=== PATIENT | male | born 1950 | race Caucasian/White ===

== ENCOUNTER 2021-08-22 07:02 | Outpatient (REF) | payer MEDICARE, SELFPAY ==
--- NOTE | ~2021-08-22 | CT_ITS ---
EXAMINATION: CT CHEST SCREENING CLINICAL INFORMATION: Lung cancer screening Current smoker. 52 pack year history. COMPARISON: Previous CT scans most recent March 2020 TECHNIQUE: Multidetector volumetric CT imaging of the chest is performed without contrast using low dose technique. Additional 2D coronal and sagittal reformatted images and axial 3D maximum intensity projection (MIP) images are generated on the CT workstation. This CT examination was performed using dose optimization techniques as appropriate, variously including the following: *Automated exposure control *Adjustment of mA and/or kV according to patient size (this includes techniques or standardized protocols for targeted exams where dose is matched to indication/reason for exam; i.e. extremities or head) *Use of iterative reconstruction technique DLP: 57 mGy-cm FINDINGS: LUNGS: There are small predominantly calcified pulmonary nodules or micronodules that are stable. Largest pulmonary nodule measures 8 mm in the peripheral pleural right lower lobe, axial image 162 series 5. The previously identified 3 x 6 mm peripheral or subpleural left lower lobe nodule that was new on March 2020 exam is no longer seen. Again this probably represented a subpleural lymph node. No new pulmonary nodule is seen. MEDIASTINUM: There is coronary artery calcification. The mediastinum is otherwise normal. PLEURA: There is no pleural effusion. No pleural mass or thickening. AXILLA: No lymphadenopathy. UPPER ABDOMEN: Unremarkable OSSEOUS STRUCTURES: There are degenerative changes of the spine. CT/CT lung screening IMPRESSION: The previously identified 3 x 6 mm peripheral or subpleural left lower lobe nodule that was new on March 2020 exam is no longer seen. Otherwise small predominantly calcified nodules or micronodules are stable. ASSESSMENT: Lung-RADS category 2: Benign RECOMMENDATION: Annual low-dose chest CT follow-up recommended.
== END 2021-08-22 07:03 | disposition home or self-care (01) ==
LOC: HO.CT 07:02
PROVIDERS: Visit Provider Physician Assistant Medical
DX: Z12.2 Encounter for screening for malignant neoplasm of respiratory organs (principal); F17.210 Nicotine dependence, cigarettes, uncomplicated
CPT/HCPCS: 71271

== ENCOUNTER 2023-05-31 08:20 | Outpatient (REF) | payer MEDICARE, SELFPAY ==
--- NOTE | ~2023-05-31 | CT_ITS ---
EXAMINATION: CT CHEST SCREENING CLINICAL INFORMATION: Current smoker. 52 pack year history. COMPARISON: Reassess exam most recent July 2021 TECHNIQUE: Multidetector volumetric CT imaging of the chest is performed without contrast using low dose technique. Additional 2D coronal and sagittal reformatted images and axial 3D maximum intensity projection (MIP) images are generated on the CT workstation. This CT examination was performed using dose optimization techniques as appropriate, variously including the following: *Automated exposure control *Adjustment of mA and/or kV according to patient size (this includes techniques or standardized protocols for targeted exams where dose is matched to indication/reason for exam; i.e. extremities or head) *Use of iterative reconstruction technique DLP: 46 mGy-cm FINDINGS: LUNGS: The previously identified peripheral or subpleural noncalcified 8 mm left lower lobe nodule is no longer seen. The small predominantly calcified pulmonary nodules are otherwise stable. Largest pulmonary nodule is a 4 mm peripheral or subpleural calcified right lower lobe axial image 185 series 5. No new pulmonary nodule. MEDIASTINUM: Normal heart size. Trace pericardial effusion. Mild aortic valve calcification. Small mediastinal lymph nodes. Normal caliber thoracic aorta. CORONARY ARTERY CALCIFICATION: Moderate PLEURA: There is no pleural effusion. No pleural mass or thickening. AXILLA: No lymphadenopathy. UPPER ABDOMEN: Unremarkable OSSEOUS STRUCTURES: Degenerative changes of the spine. CT/CT lung screening IMPRESSION: Small predominantly calcified pulmonary nodules. No suspicious pulmonary nodule. ASSESSMENT: Lung-RADS category 2: Benign RECOMMENDATION: Annual low-dose chest CT follow-up recommended
== END 2023-05-31 08:21 | disposition home or self-care (01) ==
LOC: HO.CT 08:20
PROVIDERS: PCP Internal Medicine; Visit Provider Physician Assistant Medical
DX: Z12.2 Encounter for screening for malignant neoplasm of respiratory organs (principal); F17.210 Nicotine dependence, cigarettes, uncomplicated
CPT/HCPCS: 71271

== ENCOUNTER 2024-04-24 13:28 | Outpatient (AMB) | payer MEDICARE, SELFPAY ==
--- NOTE | 2024-04-24 13:31 | HO.SPINEOV ---
Intake Visit Reasons: Lumbar radiculopaty Intake Note: Mr. Mcclelland is here today c/o Low back pain. 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 HPI: This 73-year-old male comes in complaining of severe back pain and progressive pain radiating down his legs. Pain is located in the lumbar region and is severe laying down, sitting or bending over. The leg pain appears when he is walking or standing. 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 Leaning over a shopping cart relieves the symptoms. When he coughs he gets electric shocks down his legs. On further questioning, he also complains of pain radiating from his neck down to his left arm and hand. He also has urge incontinence and restless legs at night, suspicious for cervical myelopathy. The following conservative treatment options were tried without success antiinflammatories, tylenol, physician guided home exercise plan, cortisone shots Physical Exam: Awake, alert. There is hyperreflexia starting at the triceps reflex. Has a Rene reflex on the left side. He walks with a mild spastic gait. Motor exam and sensory exam are intact. Radiological Studies: MRI of the lumbar spine done at [facility] on July 2023 shows multilevel degenerative disc disease, degenerative scoliosis at L3-4 L4-5 and severe spinal stenosis at L3-4 and L4-5. An MRI of the cervical spine is not available. Impression/Plan: This patient is suffering from progressive back pain and neurogenic claudication symptoms. His symptoms have severely progressed since July according to the patient. He never had this electric shocks down his legs. Therefore, I would like to repeat the MRI of the lumbar spine. Moreover. He suffering from cervical myelopathy by history and on clinical exam and therefore we will also order an MRI of the cervical spine. I will see the patient back as soon as the tests are done. Thank you for allowing me to participate in your patients care. total time spent was 50 minutes in counseling ,coordination of plan, personal review of imaging, surgical decision making and subsequent plan Saw Paz MD, PhD Spine Fellowship Trained Neurosurgeon Director, [facility] Orders: Orders MR cervical spine wo con Today G95.9 - Disease of spinal cord, unspecified, M54.12 - Radiculopathy, cervical region MR lumbar spine wo con Today M48.062 - Spinal stenosis, lumbar region with neurogenic claudication Coding Level of Care Code New Pt Level 4 (65843) Diagnoses Lumbar stenosis with neurogenic claudication M48.062 Cervical myelopathy with cervical radiculopathy G95.9; M54.12
== END 2024-04-24 15:30 | disposition home or self-care (01) ==
PROVIDERS: PCP Internal Medicine; Visit Provider Neurological Surgery
DX: M48.062 Spinal stenosis, lumbar region with neurogenic claudication (principal); G95.9 Disease of spinal cord, unspecified; M54.12 Radiculopathy, cervical region
CPT/HCPCS: 99204

== ENCOUNTER → 2024-04-24 13:28 | Outpatient (BNVA) | payer MEDICARE, SELFPAY | PROVIDERS: PCP Internal Medicine; Visit Provider Neurological Surgery | DX: M48.062 Spinal stenosis, lumbar region with neurogenic claudication (principal); M54.12 Radiculopathy, cervical region; G95.9 Disease of spinal cord, unspecified | CPT/HCPCS: 99202 ==

== ENCOUNTER 2024-05-03 19:30 | Outpatient (REF) | payer MEDICARE, SELFPAY ==
--- NOTE | ~2024-05-03 | MR_ITS ---
EXAMINATION: MR CERVICAL SPINE WITHOUT CONTRAST MR LUMBAR SPINE WITHOUT CONTRAST CLINICAL INFORMATION: Cervical radiculopathy. Neck pain. Neurogenic claudication. Question spinal stenosis. COMPARISON: No relevant prior imaging. TECHNIQUE: Multiplanar MR imaging of the cervical spine and lumbar spine was performed without contrast. FINDINGS: Cervical spine: There is 0.3 cm anterolisthesis of C3 on C4 and C4 on C5. Slight retrolisthesis of C5 on C6. Slight anterolisthesis of C6 on C7 and C7-T1. There is chronic loss of vertebral body height at C5 and C6. Vertebral body heights are otherwise maintained. There are type I degenerative endplate changes at C6-C7. Mixed degenerative endplate changes at C4-C5 and C5-C6. There is loss of intervertebral disc height and T2 signal intensity at multiple levels related to disc degeneration. There is no overt cord compression. No abnormal intramedullary signal changes. The cervicomedullary junction is normal. Limited visualization of the posterior fossa reveals a few cerebellar encephaloceles herniating into giant arachnoid granulations within the diploic space of the occipital bone. The occipital condyles and lateral C1 masses are intact. There are severe degenerative arthrosis of the atlantodental joint. C1-C2 articular facets are grossly unremarkable. At C2-C3 there is a slightly bulging disc. No canal stenosis. Bilateral facet degenerative change. No neuroforaminal encroachment. At C3-C4 there is a pseudodisc bulge and buckling of the ligamenta flava causing mild canal stenosis. Uncovertebral joint spurring and facet degenerative change causes severe bilateral neuroforaminal encroachment. At C4-C5 there is a bulging disc. No canal stenosis. Uncovertebral joint spurring and facet degenerative change causes moderate bilateral neuroforaminal encroachment. At C5-C6 there is a bulging disc. No canal stenosis. Asymmetric uncovertebral joint spurring and facet degenerative change causes moderate left neuroforaminal encroachment. At C6-C7 there is a bulging disc. No canal stenosis. Uncovertebral joint spurring and facet degenerative change causes moderate left and mild right neuroforaminal encroachment. At C7-T1 there is a bulging disc. Bilateral facet degenerative change. No canal stenosis. No neuroforaminal encroachment. Visualized soft tissues of the neck are normal. Vascular flow voids are maintained. Lumbar spine: There is grade 1 anterolisthesis of L4 on L5. Alignment is otherwise normal. Vertebral body heights are preserved. There are type I degenerative endplate changes at L4-L5 L5-S1. Mixed predominately type II and type III degenerative endplate changes at L1-L2, L2-L3, and L3-L4. There is loss of intervertebral disc height and T2 signal intensity at multiple levels related to disc degeneration. The tip of the conus medullaris is located at L1. No mass effect on the conus. Visualized distal cord signal intensity is normal. At L1-L2 there is a slightly bulging disc. Bilateral facet degenerative change. No canal stenosis. No mass effect on the traversing or foraminal nerve roots. At L2-L3 there is a bulging disc. Bilateral facet degenerative change. Mild canal stenosis. No mass effect on the traversing or foraminal nerve roots. At L3-L4 there is a diffusely bulging disc. Advanced facet degenerative change. Moderate canal stenosis. Subarticular zone narrowing causes abutment of both traversing L4 nerve roots. There is also moderate compression of the left L3 foraminal nerve root. At L4-L5 there is a pseudodisc bulge. Advanced bilateral facet degenerative change. Severe canal stenosis. Severe compression of the left L4 foraminal nerve root and moderate compression of the right L4 foraminal nerve root. At L5-S1 there is a shallow central protrusion superimposed upon a diffusely bulging disc. Advanced bilateral facet degenerative change. Mild canal stenosis. Subarticular zone narrowing causes abutment of both traversing S1 nerve roots. Moderate to severe compression of both L5 foraminal nerve roots. Limited visualization of the retroperitoneal anatomy reveals no abnormal finding. Psoas and paraspinal [place] are symmetric. MR/MR cervical spine wo con IMPRESSION: Cervical Spine: There is multilevel degenerative spondylosis of the cervical spine with degenerative spinal subluxation is at multiple levels as described above. There is mild canal stenosis at C3-C4. Otherwise no canal compromise. No overt cord compression and no abnormal intramedullary signal changes. There are varying degrees of neuroforaminal encroachment related to uncovertebral joint spurring and facet degenerative change as described above. Lumbar Spine: There is advanced multilevel degenerative spondylosis of the lumbar spine with grade 1 anterolisthesis of L4 on L5. Severe canal stenosis at L4-L5. Moderate canal stenosis at L3-L4. Mild canal stenosis at L2-L3 and L5-S1. There are varying degrees of mass effect on the traversing and foraminal segments of the nerve roots as described above. For instance there is severe compression of the left L4 foraminal nerve root and moderate compression of the right L4 foraminal nerve root related to degenerative changes at L4-L5. There is also moderate to severe compression of both L5 foraminal nerve roots related to degenerative changes at L5-S1. Electronically signed by: Flaco Borden MD 05/04/2024 11:03 AM EDT
== END 2024-05-03 19:31 | disposition home or self-care (01) ==
LOC: HO.MRI 19:30
PROVIDERS: PCP Internal Medicine; Visit Provider Neurological Surgery
DX: M54.12 Radiculopathy, cervical region (principal); G95.9 Disease of spinal cord, unspecified; M48.062 Spinal stenosis, lumbar region with neurogenic claudication
CPT/HCPCS: 72141; 72148

== ENCOUNTER 2024-05-20 13:40 | Outpatient (REF) | payer MEDICARE, SELFPAY ==
--- NOTE | ~2024-05-20 | XR_ITS ---
EXAMINATION: XR LUMBAR SPINE 4 VIEWS CLINICAL INFORMATION: Spinal stenosis, lumbar region with neurogenic claudication M48.062. COMPARISON: MR Lumbar spine without contrast 05/03/2024 TECHNIQUE: 4 Views of lumbar spine. FINDINGS: Dextrocurvature of the lumbar spine centered at L4. 1 cm of anterolisthesis at L5/S1. Vertebral body heights are maintained. There is multilevel loss of intervertebral disc space with endplate degenerative changes. Multilevel facet arthropathy. XR/XR lumbar spine 4V min IMPRESSION: Moderate degenerative disease of the lumbar spine. Electronically signed by: Shabana Alvarado MD 07/08/2024 06:51 PM [facility]
== END 2024-05-20 13:41 | disposition home or self-care (01) ==
LOC: HO.HOSX 13:40
PROVIDERS: PCP Internal Medicine; Visit Provider Neurological Surgery
DX: M48.062 Spinal stenosis, lumbar region with neurogenic claudication (principal)
CPT/HCPCS: 72110; 99212

== ENCOUNTER 2024-05-20 13:40 | Outpatient (AMB) | payer MEDICARE, SELFPAY ==
--- NOTE | 2024-05-20 14:00 | HO.SPINEOV ---
Intake Visit Reasons: MRI F/u per Dr. Paz Intake Note: Mr. Mcclelland is here today to F/u after MRI. Tie Inspector Required: No Assessment & Plan Assessment & Plan (1) Lumbar stenosis with neurogenic claudication: Code(s): M48.062 - Spinal stenosis, lumbar region with neurogenic claudication Category: Medical Plan: Dear colleague, On 05/20/2024, I saw for follow-up Luis Enrique Mcclelland. As you know, he is a 73-year-old male who is suffering from intractable low back pain and on top of that he has symptoms of neurogenic claudication. He can hardly walk or stand. He can not sit for any prolonged period of times and he needs help with ADLs due to the pain. He has exhausted all conservative management. Last time he mentioned that he has new shooting electricity down his legs and therefore I repeated the MRI scan of the lumbar spine which we reviewed today in detail. It shows a lumbar degenerative scoliosis with multilevel severe degenerative disc disease L3-S1 causing moderate L3-4 spinal stenosis and severe L4-5 spinal stenosis and moderate to severe bilateral L4 and L5 foraminal stenosis. The bilateral severe L5 foraminal stenosis is due to a collapse of the L5-S1 disc space. A standing x-ray today confirmed the lumbar degenerative scoliosis. In the last visit he also had symptoms of cervical myelopathy and therefore I ordered an MRI of the cervical spine which does not show cervical spinal cord compression but it does show a cervical deformity due to multilevel degenerative disc disease C4-5, C5-6 and C6-7. Clinically he suffering from bilateral arm pain. He has deltoid weakness on the left side and atrophy of the triceps and deltoid. I offered the patient an L3-4, L4-5 and L5-S1 oblique lumbar interbody fusion to address his back pain and neurogenic claudication symptoms. I explained the procedure and expected postoperative course. I quoted 80-85% chance of resolution of the neurogenic claudication symptoms in his 65% chance of back pain resolution. This surgery scheduled for 07/14/2024. He will see , who will be needed for the approach to the L5-S1 segment. We discussed possible surgery for his neck after the lumbar fusion is done. He will get preoperative clearance from the primary care physician. The only thing in his medical history is kidney insufficiency with a an creatinine of 2.6 from overuse of anti-inflammatory drugs. I spent 45 minutes in his consult reviewing imaging answering question and discussing plan of care. Saw Paz MD, PhD Spine Fellowship Trained Neurosurgeon Director, [facility] Orders: Orders XR lumbar spine 4V min Today M48.062 - Spinal stenosis, lumbar region with neurogenic claudication Coding Level of Care Code Est Pt Level 5 (31546) Diagnoses Lumbar stenosis with neurogenic claudication M48.062
== END 2024-05-20 14:40 | disposition home or self-care (01) ==
PROVIDERS: PCP Internal Medicine; Visit Provider Neurological Surgery
DX: M48.062 Spinal stenosis, lumbar region with neurogenic claudication (principal)
CPT/HCPCS: 99215

== ENCOUNTER 2024-07-01 | Outpatient (REF) | payer MEDICARE, SELFPAY ==
[2024-07-01 10:43] VITALS: BP 188/106; PULSE 88; RESP 16; O2SAT 98; BMI 24.5
--- NOTE | 2024-07-01 10:52 | HO.ANESPROP2 ---
HPI - Anesthesia Eval Consult details Narrative: 73yo M for L3-4,L4-5,L5-S1 Oblique Lumbar Interbody Fusion, pending reschedule Medically optimized per PCP BP meds reconciled and pt taking as rx'd BP up at PAT, PCP clearance visit with BP wnl, pt regularly checks at home with lower readings. Will bring log DOS Critically low Mg. T/C to increase dose preoperatively and will repeat DOS. [facility] admit 05/2024 with uncontrolled htn r/t CKD. Seen by renal, meds adjusted, CTA revealed no signif RAULITO. F/u post discharge, with renal function back to baseline. No recent illness No CP/SOB with minimal activity related to back pain GERD: ppi controls Smoker: 1 cigar daily PMFSH Active Problems Active Problems: All Active Problems Cervical myelopathy with cervical radiculopathy (Acute) Lumbar stenosis with neurogenic claudication (Acute) Nicotine dependence, cigarettes, uncomplicated (Acute) Past Medical History Medical History (Updated 07/01/24 @ 10:33 by Marli Gómez RN) History of varicocele Hx of hydrocele C. difficile colitis Anemia HOMA (acute kidney injury) Hepatitis Scoliosis Habitual snoring Pneumonia Diverticulosis History of alcohol abuse Depression Arthritis Back pain Atrial enlargement, bilateral Lumbar radiculopathy GERD (gastroesophageal reflux disease) Hyperlipidemia Hypertension Nicotine dependence, cigarettes, uncomplicated Family History Family history of problems with anesthesia: No Surgical History Surgical History (Updated 07/01/24 @ 10:32 by Marli Gómez, RN) H/O colonoscopy History of carpal tunnel release History of hernia repair History of Problems with Anesthesia: No Social History Social History Are you a primary career development manager to a significant other at home: No Do you presently have visiting nurse or other home services: No Patient Tobacco Use Status: Current everyday Tobacco user Tobacco use type: Cigar Meds Allergies Allergy/AdvReac Type Severity Reaction Status Date / Time No Known Allergies Allergy Verified 07/01/24 10:22 Home Medications ?Medication ?Instructions ?Recorded ?Confirmed ?Last Taken ?Type amlodipine 10 mg tablet 10 mg PO DAILY 07/01/24 07/01/24 Unknown History armodafinil 200 mg tablet 200 mg PO BEDTIME PRN insomnia 07/01/24 07/01/24 Unknown History aspirin 81 mg tablet,delayed 81 mg PO DAILY 07/01/24 07/01/24 Unknown History release atorvastatin 10 mg tablet 10 mg PO DAILY 07/01/24 07/01/24 Unknown History bupropion HCl 300 mg 24 hr tablet, 300 mg PO DAILY 07/01/24 07/01/24 Unknown History extended release chlorthalidone 25 mg tablet 12.5 mg PO QAM 07/01/24 07/01/24 Unknown History desonide 0.05 % topical cream 1 appl topical BID 07/01/24 07/01/24 Unknown History docusate sodium 100 mg capsule 100 mg PO DAILY 07/01/24 07/01/24 Unknown History escitalopram oxalate 20 mg tablet 20 mg PO DAILY 07/01/24 07/01/24 Unknown History ferrous sulfate 325 mg (65 mg 325 mg PO BID 07/01/24 07/01/24 Unknown History iron) tablet ketoconazole 2 % topical cream 1 appl topical BID 07/01/24 07/01/24 Unknown History magnesium oxide 375 mg PO BEDTIME 07/01/24 07/02/24 Unknown History omeprazole 20 mg capsule,delayed 20 mg PO DAILY 07/01/24 07/01/24 Unknown History release oxycodone 10 mg tablet 10 mg PO Q8-10H PRN pain 07/01/24 07/01/24 Unknown History B-complex with vitamin C 1 tab PO DAILY 07/02/24 07/02/24 Unknown History hydralazine 25 mg tablet 25 mg PO TID 07/02/24 07/02/24 Unknown History sildenafil 100 mg tablet 100 mg PO DAILY PRN Sexual Activity 07/02/24 07/02/24 Unknown History vitamin E (dl, acetate) 180 mg 180 mg PO DAILY 07/02/24 07/02/24 Unknown History (400 unit) capsule Exam Pertinent Lab Results Pertinent Lab Results: Lab Results 07/01/24 07/01/24 Range/Units 11:38 11:46 WBC 6.5 (4.8-10.8) X10*3/uL RBC 3.74 L (4.60-5.80) X10*6/uL Hgb 11.4 L (14.0-18.0) g/dl Hct 33.1 L (42.0-52.0) % MCV 88.5 (80.0-98.0) fL MCH 30.5 (27.0-33.0) pg MCHC 34.4 (31.0-36.0) g/dl RDW 14.6 (11.0-16.0) % Plt Count 223 (160-400) X10*3/uL MPV 10.7 (9.4-12.4) fL Absolute Nucleated RBC 0.000 (0.0-0.012) X10*3/uL Nucleated RBC % (auto) 0.0 (0.0-0.2) /100WBC Sodium 143 (135-145) mmol/L Potassium 3.4 (3.3-5.1) mmol/L Chloride 102 (96-108) mmol/L Carbon Dioxide 31 H (22-29) mmol/L Anion Gap 13 (12-20) BUN 19 H (9-16) mg/dL Creatinine 1.04 (0.5-1.4) mg/dL Estim Creat Clear Calc 56.6 Estimated GFR > 60 Random Glucose 90 (60-115) mg/dL Calcium 10.0 (8.4-10.2) mg/dL Magnesium 1.4 L* (1.6-2.6) mg/dL Total Bilirubin 0.5 (0.0-1.0) mg/dL AST 35 (5-37) U/L ALT 34 (0-40) U/L Alkaline Phosphatase 91 (39-117) U/L Total Protein 8.2 H (6.5-8.0) g/dL Albumin 4.2 (3.5-5.0) g/dL Blood Type O Positive Antibody Screen NEGATIVE Narrative Narrative: EKG 05/2024 Ventricular Rate: 96 BPM Atrial Rate: 96 BPM P-R Interval: 106 ms QRS Duration: 92 ms Q-T Interval: 370 ms QTC Calculation(Bazett): 467 ms P Lisle: -16 degrees R Lisle: -27 degrees T Lisle: 151 degrees Sinus rhythm with short WA Left ventricular hypertrophy with repolarization abnormality ( R in aVL ) Cannot rule out Septal infarct (cited on or before 05-MAY-2024) Abnormal ECG When compared with ECG of 05-MAY-2024 00:43, T wave inversion more evident in Lateral leads Confirmed by KEE CAVANAUGH MD ([id number]) on 05/31/2024 7:26:37 AM ECHO 04/2024 Summary -The left ventricle is normal in size and has mild left ventricular hypertrophy. The systolic function is preserved with ejection fraction of 55-65%. No regional wall motion abnormalities seen. Diastolic function is indeterminate. -The right ventricle is normal in size and function. -There is biatrial severe enlargement. -The aortic valve is calcified. There is a 0.5 cm large calcific nodule on the noncoronary cusp. There is no aortic stenosis. There is mild aortic regurgitation with a pressure half-time of 475 ms. -There is mild to moderate mitral annular calcification with mitral leaflet thickening. There is mild posteriorly directed mitral regurgitation. -There is trace pulmonic regurgitation. -There is mild tricuspid regurgitation. -The ascending aorta is mildly dilated at 3.9 cm when indexed to BSA (aortic size index 2.2). -There is mild pulmonary hypertension with estimated pulmonary artery systolic pressure estimation of 35-40 mmHg. -The inferior vena cava appears normal. -There is no pericardial effusion. Airway Mallampati Class: I TM Dist: >3cm Neck ROM: Limited (cervical disc disease, no previous surgery) Loose/Missing/Broken Teeth: No (Front upper and lower crowned, stable) Heart: RRR Lungs: CTAB Assessment and Plan Assessment Anesthesia Assessment: Anesthesia Plan Discussed, Smoking Cess. Discussed and PAT Visit Final Anesthetic Review Family History of Problems with Anesthesia: No History of Problems with Anesthesia: No
[2024-07-01 11:50] LABS: Hematocrit 33.1 % (42.0-52.0); Hemoglobin 11.4 g/dl (14.0-18.0); Mean Corpuscular HGB Conc 34.4 g/dl (31.0-36.0); Mean Corpuscular Hemoglobin 30.5 pg (27.0-33.0); Mean Corpuscular Volume 88.5 fL (80.0-98.0); Mean Platelet Volume 10.7 fL (9.4-12.4); Platelet Count 223 X10*3/uL (160-400); Red Blood Count 3.74 X10*6/uL (4.60-5.80); Red Cell Distribution Width 14.6 % (11.0-16.0); White Blood Count 6.5 X10*3/uL (4.8-10.8)
[2024-07-01 12:45] LABS: Alanine Aminotransferase 34 U/L (0-40); Albumin Level 4.2 g/dL (3.5-5.0); Alkaline Phosphatase 91 U/L (39-117); Anion Gap 13 (12-20); Aspartate Amino Transferase 35 U/L (5-37); Bilirubin Total 0.5 mg/dL (0.0-1.0); Blood Urea Nitrogen 19 mg/dL (9-16); Carbon Dioxide 31 mmol/L (22-29); Chloride 102 mmol/L (96-108); Creatinine Clr Calc Pharmacy 56.6; Estimated Glomerular Filt Rate > 60; Glucose Random 90 mg/dL (60-115); Potassium 3.4 mmol/L (3.3-5.1); Sodium 143 mmol/L (135-145); Total Protein 8.2 g/dL (6.5-8.0)
[2024-07-01 13:05] LABS: Magnesium 1.4 mg/dL (1.6-2.6)
== END 2024-07-01 00:01 | disposition home or self-care (01) ==
LOC: HO.PAT
PROVIDERS: Nurse Practitioner; Admitting Provider Neurological Surgery; PCP Internal Medicine; Visit Provider Neurological Surgery
DX: Z01.818 Encounter for other preprocedural examination (principal); M48.062 Spinal stenosis, lumbar region with neurogenic claudication
CPT/HCPCS: 36415; 80053; 83735; 85027; 86850; 86900; 86901

== ENCOUNTER 2024-09-22 06:18 | Inpatient (IN) | payer MEDICARE, SELFPAY ==
[2024-09-08 10:38] VITALS: BP 117/62; PULSE 75; RESP 18; O2SAT 98; BMI 24.5
--- NOTE | 2024-09-08 11:02 | P.CONAN_ITS ---
Documented by User: Chastity Cortés NP 09/21/24 13:21 HPI - Anesthesia Eval Consult details Narrative: 73yo M for L3-S1 Oblique Lumbar Interbody Fusion, 09/22/24 Previously cx'd d/t pt illness. [facility] admission 06/2024 for LUE soft tissue infection. Resolved with abx. Medically optimized per PCP prior to reschedule. F/U 08/2024, aware of surgical plan. BP improved from PCP visit to PAT visit with diltiazem taken as rx'd. [facility] admit 05/2024 with uncontrolled htn r/t CKD. Seen by renal, meds adjusted, CTA revealed no signif RAULITO. F/u post discharge, with renal function back to baseline. BP improved since last PAT with rx as scheduled BP meds reconciled and pt taking as rx'd Critically low Mg 06/2024. Recheck 08/2024 WNL. Pt states he has been taking supplement as rx'd. [facility] admit 05/2024 with uncontrolled htn r/t CKD. Seen by renal, meds adjusted, CTA revealed no signif RAULITO. F/u post discharge, with renal function back to baseline. No recent illness No CP/SOB with minimal activity related to back pain GERD: ppi controls Smoker: 1 cigar daily PMFSH Active Problems Active Problems: All Active Problems (Updated 09/08/24 @ 08:09 by Marli Gómez RN) Cervical myelopathy with cervical radiculopathy (Acute) Lumbar stenosis with neurogenic claudication (Acute) Nicotine dependence, cigarettes, uncomplicated (Acute) Past Medical History Medical History (Updated 09/08/24 @ 08:09 by Marli Gómez RN) Hypercholesterolemia Ulnar nerve neuropathy Psoriasis Tobacco use disorder History of varicocele Hx of hydrocele C. difficile colitis Anemia HOMA (acute kidney injury) Hepatitis Scoliosis Habitual snoring Pneumonia Diverticulosis History of alcohol abuse Depression Arthritis Back pain Atrial enlargement, bilateral Lumbar radiculopathy GERD (gastroesophageal reflux disease) Hyperlipidemia Hypertension Nicotine dependence, cigarettes, uncomplicated Family History Family history of problems with anesthesia: No Surgical History Surgical History (Updated 09/08/24 @ 10:19 by Marli Gómez RN) History of hydrocelectomy H/O colonoscopy History of carpal tunnel release History of hernia repair History of Problems with Anesthesia: No Social History Social History Are you a primary child care attendant school to a significant other at home: No Do you presently have visiting nurse or other home services: No Patient Tobacco Use Status: Current everyday Tobacco user Tobacco use type: Cigar Use of substances other than those prescribed or required for medical reasons: Yes Substance Use Frequency: Weekly Have you been hit, kicked, punched, or otherwise hurt by someone within the past year? If so, by whom?: No Are you DNR?: No Advance Directives: No Advance Directives Information Provided: No Advance Directives on File: No Recently lost weight without trying: No Eating poorly because of decreased appetite: No Nutrition Risks: No Nutritional Risk Poor oral hygiene: Yes (crown front) Meds Allergies Allergy/AdvReac Type Severity Reaction Status Date / Time No Known Allergies Allergy Verified 09/22/24 06:19 Home Medications ?Medication ?Instructions ?Recorded ?Confirmed ?Last Taken ?Type amlodipine 10 mg tablet 10 mg PO DAILY 07/01/24 09/22/24 09/22/24 History armodafinil 200 mg tablet 200 mg PO BEDTIME PRN insomnia 07/01/24 09/08/24 Unknown History aspirin 81 mg tablet,delayed 81 mg PO DAILY 07/01/24 09/08/24 Unknown History release atorvastatin 10 mg tablet 10 mg PO BEDTIME 07/01/24 09/08/24 Unknown History bupropion HCl 300 mg 24 hr tablet, 300 mg PO DAILY 07/01/24 09/22/24 09/22/24 History extended release desonide 0.05 % topical cream 1 appl topical BID 07/01/24 09/08/24 Unknown His tory docusate sodium 100 mg capsule 100 mg PO DAILY 07/01/24 09/08/24 Unknown History escitalopram oxalate 20 mg tablet 20 mg PO DAILY 07/01/24 09/22/24 09/22/24 History ferrous sulfate 325 mg (65 mg 325 mg PO BID 07/01/24 09/08/24 Unknown History iron) tablet ketoconazole 2 % topical cream 1 appl topical BID PRN Skin 07/01/24 09/08/24 Unknown History Irritation magnesium oxide 375 mg PO BEDTIME 07/01/24 09/08/24 Unknown History omeprazole 20 mg capsule,delayed 20 mg PO DAILY 07/01/24 09/22/24 09/22/24 History release oxycodone 10 mg tablet 10 mg PO Q8-10H PRN pain 07/01/24 09/08/24 Unknown History B-complex with vitamin C 1 tab PO DAILY 07/02/24 09/08/24 Unknown History hydralazine 25 mg tablet 50 mg PO TID 07/02/24 09/22/24 09/22/24 History sildenafil 100 mg tablet 100 mg PO DAILY PRN Sexual Activity 07/02/24 09/08/24 Unknown History clonidine HCl 0.1 mg tablet 0.2 mg PO BEDTIME 09/08/24 09/08/24 Unknown History diltiazem HCl 120 mg 120 mg PO BEDTIME 09/08/24 09/08/24 Unknown History capsule,extended release 24 hr Exam Height,Weight and Vital Signs: Height 5 ft 5 in Weight 66.678 kg Last Vital Signs Pulse 75 09/08/24 10:38 Resp 18 09/08/24 10:38 BP 117/62 09/08/24 10:38 Pulse Ox 98 09/08/24 10:38 O2 Del Method Room Air 09/08/24 10:38 Pertinent Lab Results Pertinent Lab Results: Lab Results 09/08/24 09/08/24 Range/Units 11:16 11:24 WBC 7.4 (4.8-10.8) X10*3/uL RBC 3.27 L (4.60-5.80) X10*6/uL Hgb 9.9 L (14.0-18.0) g/dl Hct 29.7 L (42.0-52.0) % MCV 90.8 (80.0-98.0) fL MCH 30.3 (27.0-33.0) pg MCHC 33.3 (31.0-36.0) g/dl RDW 15.9 (11.0-16.0) % Plt Count 202 (160-400) X10*3/uL MPV 11.0 (9.4-12.4) fL Absolute Nucleated RBC 0.000 (0.0-0.012) X10*3/uL Nucleated RBC % (auto) 0.0 (0.0-0.2) /100WBC Sodium 138 (135-145) mmol/L Potassium 3.6 (3.3-5.1) mmol/L Chloride 103 (96-108) mmol/L Carbon Dioxide 29 (22-29) mmol/L Anion Gap 10 L (12-20) BUN 38 H (9-16) mg/dL Creatinine 1.62 H (0.5-1.4) mg/dL Estim Creat Clear Calc 36.3 Estimated GFR 42 Random Glucose 97 (60-115) mg/dL Calcium 8.7 D (8.4-10.2) mg/dL Magnesium 1.7 (1.6-2.6) mg/dL Total Bilirubin 0.4 (0.0-1.0) mg/dL AST 35 (5-37) U/L ALT 26 (0-40) U/L Alkaline Phosphatase 92 (39-117) U/L Total Protein 7.8 (6.5-8.0) g/dL Albumin 4.0 (3.5-5.0) g/dL Blood Type O Positive Antibody Screen NEGATIVE Narrative Narrative: EKG 06/2024 Ventricular Rate: 97 BPM Atrial Rate: 97 BPM P-R Interval: 124 ms QRS Duration: 92 ms Q-T Interval: 378 ms QTC Calculation(Bazett): 480 ms P [place]: 36 degrees R [place]: -33 degrees T [place]: 64 degrees Normal sinus rhythm Possible Left atrial enlargement Left axis deviation Left ventricular hypertrophy ( R in aVL , [place] product ) Cannot rule out Septal infarct (cited on or before 05-May-2024) Abnormal ECG When compared with ECG of 29-May-2024 21:14, Premature supraventricular complexes are no longer Present Confirmed by Paul Powers ([id number]) on 07/14/2024 3:54:08 PM ECHO 04/2024 Summary -The left ventricle is normal in size and has mild left ventricular hypertrophy. The systolic function is preserved with ejection fraction of 55- 65%. No regional wall motion abnormalities seen. Diastolic function is indeterminate. -The right ventricle is normal in size and function. -There is biatrial severe enlargement. -The aortic valve is calcified. There is a 0.5 cm large calcific nodule on the noncoronary cusp. There is no aortic stenosis. There is mild aortic regurgitation with a pressure half-time of 475 ms. -There is mild to moderate mitral annular calcification with mitral leaflet thickening. There is mild posteriorly directed mitral regurgitation. -There is trace pulmonic regurgitation. -There is mild tricuspid regurgitation. -The ascending aorta is mildly dilated at 3.9 cm when indexed to BSA (aortic size index 2.2). -There is mild pulmonary hypertension with estimated pulmonary artery systolic pressure estimation of 35-40 mmHg. -The inferior vena cava appears normal. -There is no pericardial effusion. Airway Mallampati Class: I TM Dist: >3cm Neck ROM: Limited (cervical disc disease, no previous surgery) Loose/Missing/Broken Teeth: No (Front upper and lower crowned, stable) Heart: RRR Lungs: CTAB Assessment and Plan Assessment Anesthesia Assessment: Anesthesia Plan Discussed, Smoking Cess. Discussed and PAT Visit Final Anesthetic Review Family History of Problems with Anesthesia: No History of Problems with Anesthesia: No Documented by User: Rick Duran MD 09/22/24 09:24 [facility] Past Medical History Medical History (Updated 09/08/24 @ 08:09 by Marli Gómez RN) Hypercholesterolemia Ulnar nerve neuropathy Psoriasis Tobacco use disorder History of varicocele Hx of hydrocele C. difficile colitis Anemia HOMA (acute kidney injury) Hepatitis Scoliosis Habitual snoring Pneumonia Diverticulosis History of alcohol abuse Depression Arthritis Back pain Atrial enlargement, bilateral Lumbar radiculopathy GERD (gastroesophageal reflux disease) Hyperlipidemia Hypertension Nicotine dependence, cigarettes, uncomplicated Surgical History Surgical History (Updated 09/08/24 @ 10:19 by Marli Gómez RN) History of hydrocelectomy H/O colonoscopy History of carpal tunnel release History of hernia repair Social History Social History Are you a primary child care attendant school to a significant other at home: No Do you presently have visiting nurse or other home services: No Patient Tobacco Use Status: Current everyday Tobacco user Tobacco use type: Cigar Use of substances other than those prescribed or required for medical reasons: Yes Substance Use Frequency: Weekly Have you been hit, kicked, punched, or otherwise hurt by someone within the past year? If so, by whom?: No Are you DNR?: No Advance Directives: No Advance Directives Information Provided: No Advance Directives on File: No Recently lost weight without trying: No Eating poorly because of decreased appetite: No Nutrition Risks: No Nutritional Risk Poor oral hygiene: Yes (crown front) Meds Allergies Allergy/AdvReac Type Severity Reaction Status Date / Time No Known Allergies Allergy Verified 09/22/24 06:19 Home Medications ?Medication ?Instructions ?Recorded ?Confirmed ?Last Taken ?Type amlodipine 10 mg tablet 10 mg PO DAILY 07/01/24 09/22/24 09/22/24 History armodafinil 200 mg tablet 200 mg PO BEDTIME PRN insomnia 07/01/24 09/08/24 Unknown History aspirin 81 mg tablet,delayed 81 mg PO DAILY 07/01/24 09/08/24 Unknown History release atorvastatin 10 mg tablet 10 mg PO BEDTIME 07/01/24 09/08/24 Unknown History bupropion HCl 300 mg 24 hr tablet, 300 mg PO DAILY 07/01/24 09/22/24 09/22/24 History extended release desonide 0.05 % topical cream 1 appl topical BID 07/01/24 09/08/24 Unknown History docusate sodium 100 mg capsule 100 mg PO DAILY 07/01/24 09/08/24 Unknown History escitalopram oxalate 20 mg tablet 20 mg PO DAILY 07/01/24 09/22/24 09/22/24 History ferrous sulfate 325 mg (65 mg 325 mg PO BID 07/01/24 09/08/24 Unknown History iron) tablet ketoconazole 2 % topical cream 1 appl topical BID PRN Skin 07/01/24 09/08/24 Unknown History Irritation magnesium oxide 375 mg PO BEDTIME 07/01/24 09/08/24 Unknown History omeprazole 20 mg capsule,delayed 20 mg PO DAILY 07/01/24 09/22/24 09/22/24 History release oxycodone 10 mg tablet 10 mg PO Q8-10H PRN pain 07/01/24 09/08/24 Unknown History B-complex with vitamin C 1 tab PO DAILY 07/02/24 09/08/24 Unknown History hydralazine 25 mg tablet 50 mg PO TID 07/02/24 09/22/24 09/22/24 History sildenafil 100 mg tablet 100 mg PO DAILY PRN Sexual Activity 07/02/24 09/08/24 Unknown History clonidine HCl 0.1 mg tablet 0.2 mg PO BEDTIME 09/08/24 09/08/24 Unknown History diltiazem HCl 120 mg 120 mg PO BEDTIME 09/08/24 09/08/24 Unknown History capsule,extended release 24 hr Exam Airway Mallampati Class: II Assessment and Plan Final Anesthetic Review NPO: Yes ASA Class: II Final Preanesthetic Review: No Changes in Pt Med Stat, Meds/Allgs Chart Reviewed, Consent Obtained/Reviewed and Anes Risks/Benef Reviewed Patient Risk: Intermediate Procedure Risk: Intermediate Anesthetic Plan Anesthetic Plan: GA Disposition: Standard PACU
[2024-09-08 11:51] LABS: Hematocrit 29.7 % (42.0-52.0); Hemoglobin 9.9 g/dl (14.0-18.0); Mean Corpuscular HGB Conc 33.3 g/dl (31.0-36.0); Mean Corpuscular Hemoglobin 30.3 pg (27.0-33.0); Mean Corpuscular Volume 90.8 fL (80.0-98.0); Platelet Count 202 X10*3/uL (160-400); Red Blood Count 3.27 X10*6/uL (4.60-5.80); Red Cell Distribution Width 15.9 % (11.0-16.0); White Blood Count 7.4 X10*3/uL (4.8-10.8)
[2024-09-08 12:45] LABS: Alanine Aminotransferase 26 U/L (0-40); Alkaline Phosphatase 92 U/L (39-117); Anion Gap 10 (12-20); Aspartate Amino Transferase 35 U/L (5-37); Bilirubin Total 0.4 mg/dL (0.0-1.0); Blood Urea Nitrogen 38 mg/dL (9-16); Calcium 8.7 mg/dL (8.4-10.2); Carbon Dioxide 29 mmol/L (22-29); Chloride 103 mmol/L (96-108); Creatinine Clr Calc Pharmacy 36.3; Estimated Glomerular Filt Rate 42; Glucose Random 97 mg/dL (60-115); Magnesium 1.7 mg/dL (1.6-2.6); Potassium 3.6 mmol/L (3.3-5.1); Sodium 138 mmol/L (135-145); Total Protein 7.8 g/dL (6.5-8.0)
[2024-09-22] VITALS (15 sets, daily range): BP systolic 119–184; BP diastolic 69–105; PULSE 79–100; RESP 6–20; TEMP 36.3–37.2; O2SAT 92–100; BMI 25.3
--- NOTE | ~2024-09-22 | XR_ITS ---
EXAMINATION: XR ABDOMEN 1 VIEW (KUB) HISTORY: s/p OLIF COMPARISON: There are no prior studies for comparison. FINDINGS: A single supine view of the abdomen is submitted. Soft tissue gas in the left lateral abdomen may be related to recent surgery. The bowel gas pattern is otherwise unremarkable, without evidence of mechanical obstruction. There is a phlebolith in the left hemipelvis. There are no abnormal soft tissue masses. Intervertebral spacers are noted at the L3-4, L4-5, and the L5-S1 levels. XR/XR abdomen 1V IMPRESSION: Unremarkable bowel gas pattern. Electronically signed by: Flaco Simental MD 09/22/2024 11:40 AM [facility] [place]
--- NOTE | ~2024-09-22 | FL_ITS ---
EXAMINATION: FL GUIDANCE ONLY HISTORY: L3-S1 OLIF COMPARISON: None available. TECHNIQUE: Fluoroscopy time: 4.69 minutes. Cumulative Dose: 134.711 mGy. DAP: 46.02 mGym2 Images: 3. FINDINGS: Images demonstrate posterior fusion of L3-S1 with pedicle screws and spinal stabilization rods. Intervertebral spacers are also noted at these levels. FL/FL guidance in OR IMPRESSION: Fluoroscopy during procedure. Please see procedure report for additional information. Electronically signed by: Flaco Simental MD 09/22/2024 01:21 PM [facility]
--- OUTSIDE RECORDS SUMMARY | 2024-09-22 06:23 | XMS_ITS | Encounter Summary ---
Author Organization [facility] Address [address] [place] [address] Care Team Providers Care Med Peds Name Role Phone Rosetta Kiser MD Primary Care Prov ider Reason for Visit * Reason Comments Follow-up Hypertension Encounter Details Date Type Department Care Team ([facility] st Contact Info) Description 09/07/2024 2:30 PM EST Office Visit Adult Medicine [address] [phone] Rosetta Kiser MD [address] [place] [address] Primary hypertension (Primary Dx); Chronic low back pain, unspecified back pain laterality, unspecified whether sciatica present; Chronic neck pain Social History Tobacco Use Types Packs/Day Years Used Date Smoking Tobacco: Some Days Cigarettes 1 10.7 Started: 1968; Last attempted to quit: 07/29/1979 Smokeless Tobacco: Never Tobacco Cessation:Ready to Q uit: Not Asked; Counseling Given: Yes Alcohol Use Standard Drinks/Week Comments Yes 0 (1 standard drink = 0.6 oz pur e alcohol) Sex and Gender Information Value Date Recorded Sex Assigned at Not on file Legal Sex Male 2:03 PM EST Gender Identity Not on file Sexual Orientation Not on file documented as of this encounter Last Filed Vital Signs Vital Sign Reading Time Taken Comments Blood Pressure 169/104 09/07/2024 2:39 PM EST Pulse - - Temperature 36.8 ??C (98.2 ??F) 09/07/2024 2:39 PM ES T Respiratory Rate - - Oxygen Saturation - - Inhaled Oxygen Concentration - - Weight 67.1 kg (148 lb) 09/07/2024 2:39 PM EST Height 165.1 cm (5' 5 ) 09/07/2024 2:39 PM EST Body Mass Index 24.63 09/07/2024 2:39 PM EST documented in this encounter Ordered Prescriptions Prescription Sig Dispense Quantity Refills Last Filled Start Date End Date dilTIAZem CD (CARDIZEM CD) 120 mg 24 hr capsule Take 1 capsule (120 mg total) by mouth at bedtime. at bedtime 90 each 1 09/07/2024 docusate sodium (COLACE) 100 mg capsule Take 1 capsule (100 mg total) by mouth 2 (two) times a day. 60 capsule 3 09/07/2024 documented in this encounter Progress Notes * Rosetta Kiser MD - 09/07/2024 2:30 PM EST CHIEF COMPLAINT: Follow-up and Hypertension IDENTIFIER: Luis Enrique Mcclelland is a 73 y.o. old male. HPI: 73-year-old presents for follow-up on his hypertension. His blood pressure has been difficult to control We reviewed his medications today his blood pressure still elevated I have put in a referral for patient to see cardiology He is scheduled for ORTHOPEDIC surgery in 2 weeks. Patient states that he still in a lot of pain but tries to minimize using the oxycodone We reviewed his medications ROS: See HPI PAST MEDICAL HISTORY: Patient Active Problem List Diagnosis Date Noted Atrial enlargement, bilateral 05/18/2024 Tobacco use disorder 01/06/2019 Abnormal MRI, lumbar spine 03/12/2017 Chronic low back pain 03/12/2017 Psoriasis 01/17/2016 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 Arthritis, wrist 08/03/2015 Diverticulosis 08/03/2015 Depression 07/21/2015 Essential hypertension 07/21/2015 History of alcohol abuse 07/21/2015 Hypercholesterolemia 07/21/2015 SOCIAL HISTORY: Social History Tobacco Use Smoking status: Some Days Current packs/day: 0.00 Average packs/day: 1 pack/day for 10.7 years (10.7 ttl pk-yrs) Types: Cigarettes Start date: 1968 Last attempt to quit: 07/29/1979 Years since quittin.1 Smokeless tobacco: Never Substance Use Topics Alcohol use: Yes FAMILY HISTORY: Family Status Relation Name Status Father Mother Son Alive Brother Alive Sister half sister Alive Sister haof sister PGM (Not Specified) PGF (Not Specified) No partnership data on file Family History Problem Relation Name Age of Onset Heart attack Father 43.00 alcoholism Other (Other: Other) Mother 27.00 Unknown cause of Hyperlipidemia Son Hyperlipidemia Brother Hypertension Brother Breast cancer Sister half sister Lung cancer Sister haof sister Heart attack Paternal Grandmother Heart attack Paternal Grandfather ACTIVE MEDICATIONS: Outpatient Medications Marked as Taking for the 09/07/24 encounter (Office Visit) with Rosetta Kiser MD Medication Sig Dispense Refill amLODIPine (NORVASC) 10 mg tablet Take 1 Tablet by mouth daily for 180 days. armodafiniL (NUVIGIL) 200 mg tablet Take 1 Tablet by mouth at bedtime as needed (sleep). aspirin 81 mg EC tablet Take 1 tablet (81 mg total) by mouth 1 (one) time each day. atorvastatin (LIPITOR) 10 mg tablet TAKE 1 TABLET BY MOUTH EVERY DAY 90 tablet 1 buPROPion XL (WELLBUTRIN XL) 300 mg 24 hr tablet Take 1 tablet (300 mg total) by mouth 1 (one) timeeach day in the morning. chlorthalidone (HYGROTON) 25 mg tablet Take 0.5 tablets (12.5 mg total) by mouth 1 (one) time each day. 45 each 1 cloNIDine (CATAPRES) 0.1 mg tablet Take 1 tablet (0.1 mg total) by mouth at bedtime. 30 each 5 desonide (DESOWEN) 0.05 % cream Apply topically 2 (two) times a day. dilTIAZem CD (CARDIZEM CD) 120 mg 24 hr capsule TAKE 1 CAPSULE BY MOUTH AT BEDTIME 90 capsule 1 dilTIAZem CD (CARDIZEM CD) 120 mg 24 hr capsule Take 1 capsule (120 mg total) by mouth at bedtime. at bedtime 90 each 1 docusate sodium (COLACE) 100 mg capsule Take 1 capsule (100 mg total) by mouth 2 (two) times a day.60 capsule 3 escitalopram (LEXAPRO) 20 mg tablet Take 1 tablet (20 mg total) by mouth 1 (one) time each day. ferrous sulfate 325 mg (65 mg elemental iron) tablet Take 1 tablet (325 mg total) by mouth 2 (two) times a day. hydrALAZINE (APRESOLINE) 25 mg tablet Take 1 tablet (25 mg total) by mouth 3 (three) times a day. 90 each 5 ketoconazole (NIZORAL) 2 % cream Apply topically 2 (two) times a day. magnesium oxide 250 mg magnesium tablet TAKE 1 TABLET BY MOUTH EVERY DAY IN THE EVENING 90 tablet 1 OMEGA-3 FATTY ACIDS-FISH OIL ORAL Take by mouth 1 (one) time each day. omeprazole (PriLOSEC) [address] capsule Take 1 capsule (20 mg total) by mouth 1 (one) time each day. [DISCONTINUED] docusate sodium (COLACE) 100 mg capsule Take 1 capsule (100 mg total) by mouth 2 (two) times a day. ALLERGIES: Patient has no known allergies. PHYSICAL EXAM: Blood pressure (!) 169/104, temperature 36.8 ??C (98.2 ??F), temperature source Temporal, height 1.651 m (65 ), weight 67.1 kg (148 lb). Body mass index is 24.63 kg/m??. Plan is deferred because the patient is aged 65 or older and a weight gain/reduction plan would complicate other health conditions APPEARANCE: Alert and in no acute distress EYES: PERRLA, conjunctiva and sclera normal EARS: External ears normal. Canals clear. TMs normal. NOSE/SINUS: Nares normal. Septum midline. Mucosa normal. No drainage or sinus tenderness MOUTH/THROAT: no erythema, lesions, or exudates HEART: RRR with normal S1 and S2, no murmurs, no gallops, no JVD appreciated LUNG: clear to auscultation bilaterally LYMPH NODES: grossly normal LABS: Weight: 67.1 kg (148 lb) IMPRESSION: 1. Primary hypertension 2. Chronic low back pain, unspecified back pain laterality, unspecified whether sciatica present 3. Chronic neck pain PLAN: Primary hypertension Blood pressure still uncontrolled Patient was supposed to be on 10 mg of amlodipine Diltiazem CD1 20 mg Chlorthalidone 12.5 mg daily And hydralazine 50 mg 3 times daily It appears patient was not taking the diltiazem We will start patient back on the diltiazem .he is now on 4 different medicines for his hypertension We discussed about low-salt diet. Will put in a referral to cardiology He says that his ongoing chronic pain is factoring into his blood pressure being elevated Chronic back and neck pain Awaiting surgery Return to the office in 1 month for follow-up No orders of the defined types were placed in this encounter. ADDITIONAL ORDERS: None Rosetta Kiser MD on 09/07/2024 at 5:25 PM EST documented in this encounter Plan of Treatment Upcoming Encounters Date Type Department Care Team (Late st Contact Info) Description 09/28/2024 9:40 AM EST Office Visit [facility] [address] [place] [address] Angel Christensen NP [address] [facility] [address] [place] [address] 11/03/2024 9:30 AM EDT Office Visit Adult Medicine [facility] [address] [place] [address] Rosetta Kiser MD [address] [place] [address] documented as of this encounter Visit Diagnoses Diagnosis Primary hypertension- Primary Unspecified essential hypertension Chronic low back pain, unspecified back pain laterality, unspecified whether sciatica present Chronic neck pain Cervicalgia documented in this encounter Discontinued Medications Medication Sig Discontinue Reason Start Date End Da te docusate sodium (COLACE) 100 mg capsule Take 1 capsule (100 mg total) by mouth 2 (two) times a day. Reorder 03/12/2024 09/07/2024 dilTIAZem CD (CARDIZEM CD) 120 mg 24 hr capsule Take 1 capsule (120 mg total) by mouth. at bedtime Reorder 07/07/2024 09/07/2024 documented as of this encounter Care Teams Med Peds Relationship Specialty Start Date End Date Rosetta Kiser MD [address] [place] [address] PCP - General Internal Medicine 09/02/24 documented as of this encounter
--- OUTSIDE RECORDS SUMMARY | 2024-09-22 06:23 | XMS_ITS | Encounter Summary ---
Author Organization [facility] Address [address] [place] [address] Care Team Providers Care Soldering Inspector Name Role Phone Rosetta Kiser MD Primary Care Prov ider Encounter Details Date Type Department Care Team (Latest Contact Info) Description 09/02/2024 1:30 PM EST - 09/02/2024 11:59 PM [facility] Hospital Encounter [facility] [address] [place] [phone] Impingement syndrome of left shoulder Discharge Disposition: Home or Self Care Social History Tobacco Use Types Packs/Day Years Used Date Smoking Tobacco: Some Days Cigarettes 1 10.7 Started: 1968; Last attempted to quit: 07/29/1979 Smokeless Tobacco: Never Alcohol Use Standard Drinks/Week Comments Yes 0 (1 standard drink = 0.6 oz pur e alcohol) Sex and Gender Information Value Date Recorded Sex Assigned at Not on file Legal Sex Male 2:03 PM EST Gender Identity Not on file Sexual Orientation Not on file documented as of this encounter Medications at Time of Discharge amLODIPine (NORVASC) 10 mg tablet Take 1 Tablet by mouth daily for 180 days. 09/10/2023 armodafiniL (NUVIGIL) 200 mg tablet Take 1 Tablet by mouth at bedtime as needed (sleep). 04/21/2024 aspirin 81 mg EC tablet Take 1 tablet (81 mg total) by mouth 1 (one) time each day. atorvastatin (LIPITOR) 10 mg tablet TAKE 1 TABLET BY MOUTH EVERY DAY 90 tablet 1 08/28/2024 buPROPion XL (WELLBUTRIN XL) 300 mg 24 hr tablet Take 1 tablet (300 mg total) by mouth 1 (one) time each day in the morning. 01/23/2018 chlorthalidone (HYGROTON) 25 mg tablet Take 0.5 tablets (12.5 mg total) by mouth 1 (one) time each day. 45 each 1 06/23/2024 cloNIDine (CATAPRES) 0.1 mg tablet Take 1 tablet (0.1 mg total) by mouth at bedtime. 30 each 5 08/26/2024 desonide (DESOWEN) 0.05 % cream Apply topically 2 (two) times a day. 07/14/2018 dilTIAZem CD (CARDIZEM CD) 120 mg 24 hr capsule TAKE 1 CAPSULE BY MOUTH AT BEDTIME 90 capsule 1 08/28/2024 escitalopram (LEXAPRO) 20 mg tablet Take 1 tablet (20 mg total) by mouth 1 (one) time each day. 01/23/2018 ferrous sulfate 325 mg (65 mg elemental iron) tablet Take 1 tablet (325 mg total) by mouth 2 (two) times a day. 04/07/2024 hydrALAZINE (APRESOLINE) 25 mg tabletIndication s:hypertension Take 1 tablet (25 mg total) by mouth 3 (three) times a day. 90 each 5 06/10/2024 5 ketoconazole (NIZORAL) 2 % cream Apply topically 2 (two) times a day. 10/08/2017 magnesium oxide 250 mg magnesium tabletIndication s:Abnormal level of blood mineral TAKE 1 TABLET BY MOUTH EVERY DAY IN THE EVENING 90 tablet 1 07/02/2024 OMEGA-3 FATTY ACIDS-FISH OIL ORAL Take by mouth 1 (one) time each day. omeprazole (PriLOSEC) [address] capsule Take 1 capsule (20 mg total) by mouth 1 (one) time each day. 04/13/2024 dilTIAZem CD (CARDIZEM CD) 120 mg 24 hr capsule Take 1 capsule (120 mg total) by mouth. at bedtime 07/07/2024 docusate sodium (COLACE) 100 mg capsule Take 1 capsule (100 mg total) by mouth 2 (two) times a day. 03/12/2024 5 oxyCODONE (ROXICODONE) 10 mg immediate release tablet Take 1 tablet (10 mg total) by mouth every 8 (eight) hours if needed for severe pain. Max Daily Amount: 30 mg 84 tablet 08/03/2024 5 documented as of this encounter Discharge Disposition Disposition Code Departure Means Destination Home or Self Care documented in this encounter Plan of Treatment Upcoming Encounters Date Type Department Care Team (Late st Contact Info) Description 09/28/2024 9:40 AM EST Office Visit [facility] [address] [place] [address] Angel Christensen NP [address] [place] [address] Dr [address] [place] [address] 11/03/2024 9:30 AM EDT Office Visit Adult Medicine [address] [address] Rosetta Kiser MD [address] [place] [phone] documented as of this encounter Procedures Procedure Name Priority Date/Time Associated Diagnosis Comments XR SHOULDER 2+ VIEWS LEFT Routine 09/02/2024 2:15 PM EST Impingement syndrome of left shoulder documented in this encounter Results * XR Shoulder 2+ Views Left (09/02/2024 2:15 PM EST) Anatomical Region Laterality Modality Upper Extremities, Shoulder Left Radi ographic Imaging 09/02/2024 9:53 PM EST Narrative 09/02/2024 9:54 PM EST Left shoulder, 4 views. History pain. There are moderate degenerative changes in the glenohumeral joint and mild degenerative changes in the AC joint. There is no evidence of fractures, dislocations or abnormal soft tissue calcifications. There is narrowing of the shoulder outlet. CONCLUSIONS: Degenerative changes as detailed. -------- FINAL REPORT -------- Dictated By: Rowan Hurley Dictated Date: 09/02/2024 21:53 ET Assigned Physician: Rowan Hurley Reviewed and Electronically Signed By: Rowan Hurley Signed Date: 09/02/2024 21:54 ET Workstation ID: [id number] Transcribed By: Self Edit Transcribed Date: 09/02/2024 21:53 ET Procedure Note Rowan Hurley MD - 09/02/2024 Left shoulder, 4 views. History pain. There are moderate degenerative changes in the glenohumeral joint and milddegenerative changes in the AC joint. There is no evidence of fractures,dislocations or abnormal soft tissue calcifications. There is narrowing ofthe shoulder outlet. CONCLUSIONS: Degenerative changes as detailed. -------- FINAL REPORT -------- Dictated By: Rowan Hurley Dictated Date: 09/02/2024 21:53 ET Assigned Physician: Rowan Hurley Reviewed and Electronically Signed By: Rowan Hurley Signed Date: 09/02/2024 21:54 ET Workstation ID: [id number] Transcribed By: Self Edit Transcribed Date: 09/02/2024 21:53 ET Dax MELISSA IMG XR PROCEDURES Final Result documented in this encounter Visit Diagnoses Diagnosis Impingement syndrome of left shoulder documented in this encounter Care Teams Soldering Inspector Relationship Specialty Start Date End Date Rosetta Kiser MD [address] [place] [id number] PCP - General Internal Medicine 09/02/24 documented as of this encounter
--- OUTSIDE RECORDS SUMMARY | 2024-09-22 06:23 | XMS_ITS | Clinical Summary ---
Author Organization [facility] Address [address] [address] Phone Care Team Providers Care Music Cataloguer Name Role Phone Praveen Fournier PA-C Primary Care Provider Allergies No known active allergies Medications acetaminophen (TYLENOL) 325 MG tablet Take 975 mg by mouth 4 Active armodafinil (NUVIGIL) 200 MG tablet Take 1 Tablet by mouth at bedtime as needed (sleep). 4 Active Vitamin B Complex-C capsule Take by mouth 5 Active buPROPion XL (WELLBUTRIN XL) 300 MG 24 hr tablet Take 300 mg by mouth every morning 7 Active desonide (DESOWEN) 0.05 % cream Apply topically twice a day 8 Active Docusate Sodium (DSS) 100 MG capsule Take 100 mg by mouth 4 Active escitalopram (LEXAPRO) 20 MG tablet Take 20 mg by mouth in the morning. 7 Active ferrous sulfate 325 (65 Fe) MG tablet Take 1 tablet by mouth 4 Active omeprazole (PriLOSEC) [address] capsule Take 1 capsule by mouth 1 (one) time each day 4 Active potassium chloride 10 MEQ CR tablet Take 10 mEq by mouth 4 Active atorvastatin (LIPITOR) 10 MG tablet Take 10 mg by mouth 1 (one) time each day Active hydrALAZINE 50 MG tablet Take 50 mg by mouth in the morning and 50 mg in the evening and 50 mg before bedtime. Active Magnesium Oxide -Mg Supplement 250 MG tablet Take 250 mg by mouth in the morning. 30 tablet 11 4 06/04/20 25 Active amLODIPine (NORVASC) 10 MG tablet Take 10 mg by mouth 1 (one) time each day Active labetalol (NORMODYNE) 200 MG tablet Take 2 tablets (400 mg total) by mouth in the morning and 2 tablets (400 mg total) in the evening. 120 tablet 11 06/04/20 25 Active calcitriol (ROCALTROL) 0.25 MCG capsule Take 0.25 mcg by mouth 1 (one) time each day Active Active Problems No known active problems Social History Tobacco Use Types Packs/Day Years Used Date Smoking Tobacco: Every Day Cigarettes Tobacco Cessation:Ready to Q uit: Not Asked; Counseling Given: Not Answered Alcohol Use Standard Drinks/Week Comments Yes 0 (1 standard drink = 0.6 oz pur e alcohol) Sex and Gender Information Value Date Recorded Sex Assigned at Not on file Legal Sex Male 4:57 PM EST Gender Identity Not on file Sexual Orientation Not on file Last Filed Vital Signs Vital Sign Reading Time Taken Comments Blood Pressure 181/108 06/16/2024 9:51 AM EST Pulse 100 06/16/2024 9:51 AM EST Temperature 36.2 ??C (97.2 ??F) 06/16/2024 9:51 AM ES T Respiratory Rate - - Oxygen Saturation 97% 06/16/2024 9:51 AM EST Inhaled Oxygen Concentration - - Weight 64.9 kg (143 lb) 06/16/2024 9:51 AM EST Height 165.1 cm (5' 5 ) 06/16/2024 9:51 AM EST Body Mass Index 23.8 06/16/2024 9:51 AM EST Plan of Treatment Upcoming Encounters Date Type Department Care Team (Late st Contact Info) Description 09/22/2024 7:30 AM EST Scheduled Only [facility] [address] [place] [phone] Jean Parra MD [address] [place] [phone] 12/03/2024 2:30 PM EDT Office Visit [facility] [address] [place] [address] Asim Lester MD [address] [facility] [address] [place] [address] Health Maintenance Due Date Last Done Comments Colorectal Cancer Screening: Annual FOBT 2001 Colorectal Cancer Screening: Colonoscopy 2001 Colorectal Cancer Screening: Sigmoidoscopy 2001 Hepatitis B Vaccine (1 of 3 - Risk 3-dose series) 2012 Pneumococcal Vaccine: 65+ Years Completed , 08/04/2018 Influenza Vaccine Completed 04/21/2024, , 05/15/2019, Additional history exists Insurance MEDICARE [facility] MEDICARE [facility] MEDICARE [facility] CIG OPEN ACCESS ([id number]) Care Teams Music Cataloguer Relationship Specialty Start Date End Date Praveen Fournier PA-C [address] [place] [address] PCP - General Physician Bodywork Therapist 06/04/24
--- OUTSIDE RECORDS SUMMARY | 2024-09-22 06:23 | XMS_ITS ---
Author Organization [facility] Address [address] [place] [address] Care Team Providers Care Transport Analyst Name Role Phone Rosetta Kiser MD Primary Care Prov ider Chronic Care Management Status:Ongoing (Active) Start date:06/03/2024 Enrollment date:06/12/2024 Enrollment reason:Referred by Care Team Case Team Name Relationship Phone Hanna Alvarez RN Care Manager(Responsible S taff) Continued Care and Services Coordination
--- OUTSIDE RECORDS SUMMARY | 2024-09-22 06:23 | XMS_ITS | Encounter Summary ---
Author Organization [facility] Address [address] [place] [address] Care Team Providers Care Vocational Adviser Name Role Phone Rosetta Kiser MD Primary Care Prov ider Encounter Details Date Type Department Care Team (Late Contact Info) Description 09/03/2024 Telephone Adult [address] [phone] Claire Martinez MA Social History Tobacco Use Types Packs/Day Years [...] on file documented as of this encounter Progress Notes * Claire Martinez MA - 09/03/2024 4:47 PM EST Left message for patient to call back to let us know his date of surgery. documented in this encounter Plan of Treatment Upcoming Encounters Date Type Department Care Team (Late Contact Info) Description 09/28/2024 9:40 AM EST Office Visit [facility] [address] [place] [phone] Angel Christensen NP [address] [place] [address] [place] [address] 11/03/2024 9:30 AM EDT Office Visit Adult Medicine - [place] [address] [place] [address] Rosetta Kiser MD [address] [place] [address] documented as of this encounter Visit Diagnoses Not on filedocumented in this encounter Care Teams Vocational Adviser Relationship Specialty Start Date End Date Rosetta Kiser MD [address] [place] [address] PCP - General Internal Medicine 09/02/24 documented as of this encounter
--- OUTSIDE RECORDS SUMMARY | 2024-09-22 06:23 | XMS_ITS | Encounter Summary ---
Author Organization [facility] Address [address] [place] [address] Care Team Providers Care Senior Php Software Developer Name Role Phone Rosetta Kiser MD Primary Care Prov ider Reason for Visit * Reason Onset Date Comments Appointment 09/03/2024 Encounter Details Date Type Department Care Team ([facility] st Contact Info) Description 09/03/2024 Telephone Adult Medicine [facility] [address] [place] [phone] Rosetta Kiser MD [address] [place] [address] Appointment Social History Tobacco Use Types Packs/Day Years [...] Notes * Claire Martinez MA - 09/03/2024 2:40 PM EST Spoke with patient, made appt for this Saturday at 2:30pm with Dr. Francis. Also, advised patient ifhe has any issues with heart racing he should call 911 or go to emergency room right away. * Nasi'Ir Mullen - 09/03/2024 2:02 PM EST Luis Enrique Tracee Convertino returning call * Claire Martinez MA - 09/03/2024 1:36 PM EST Left message for patient to call office back on identified voicemail. * Madonna Mullen - 09/03/2024 10:33 AM EST Pt wants a sooner appt since his appt was cancelled for a follow up with Rosetta Kiser MD documented in this encounter Plan of Treatment Upcoming Encounters Date Type Department Care Team (Late st Contact Info) Description 09/28/2024 9:40 AM EST Office Visit [facility] [address] [place] [address] Dr [address] [place] [address] Angel Christensen NP [address] [place] [address] Dr [address] [place] [address] 11/03/2024 9:30 AM EDT Office Visit Adult [facility] - [place] [address] [place] [address] Rosetta Kiser MD [address] [place] [address] documented as of this encounter Visit Diagnoses Not on filedocumented in this encounter Care Teams Senior Php Software Developer Relationship Specialty Start Date End Date Rosetta Kiser MD [address] [place] [address] PCP - General Internal Medicine 09/02/24 documented as of this encounter
--- OUTSIDE RECORDS SUMMARY | 2024-09-22 06:23 | XMS_ITS | Clinical Summary ---
Author Organization [facility] Address [address] [place] [address] Care Team Providers Care Traffic Court Referee Name Role Phone Rosetta Kiser MD Primary Care Prov ider Allergies No known active allergies Medications amLODIPine (NORVASC) 10 mg tablet Take 1 Tablet by mouth daily for 180 days. 09/10/19 24 025 Active armodafiniL (NUVIGIL) 200 mg tablet Take 1 Tablet by mouth at bedtime as needed (sleep). 04/21/20 24 Active buPROPion XL (WELLBUTRIN XL) 300 mg 24 hr tablet Take 1 tablet (300 mg total) by mouth 1 (one) time each day in the morning. 01/24/20 18 Active desonide (DESOWEN) 0.05 % cream Apply topically 2 (two) times a day. 07/14/20 18 Active escitalopram (LEXAPRO) 20 mg tablet Take 1 tablet (20 mg total) by mouth 1 (one) time each day. 01/24/20 18 Active ferrous sulfate 325 mg (65 mg elemental iron) tablet Take 1 tablet (325 mg total) by mouth 2 (two) times a day. 04/07/20 24 Active ketoconazole (NIZORAL) 2 % cream Apply topically 2 (two) times a day. 10/09/19 18 Active OMEGA-3 FATTY ACIDS-FISH OIL ORAL Take by mouth 1 (one) time each day. Active omeprazole (PriLOSEC) [address] capsule Take 1 capsule (20 mg total) by mouth 1 (one) time each day. 04/13/20 24 Active aspirin 81 mg EC tablet Take 1 tablet (81 mg total) by mouth 1 (one) time each day. Active hydrALAZINE (APRESOLINE) 25 mg tabletIndicati ons:hypertensi on Take 1 tablet (25 mg total) by mouth 3 (three) times a day. 90 each 5 06/10/20 24 025 Active chlorthalidone (HYGROTON) 25 mg tablet Take 0.5 tablets (12.5 mg total) by mouth 1 (one) time each day. 45 each 1 06/23/20 24 025 Active magnesium oxide 250 mg magnesium tabletIndicati ons:Abnormal level of blood mineral TAKE 1 TABLET BY MOUTH EVERY DAY IN THE EVENING 90 tablet 1 07/02/20 24 Active cloNIDine (CATAPRES) 0.1 mg tablet Take 1 tablet (0.1 mg total) by mouth at bedtime. 30 each 5 08/26/19 25 Active atorvastatin (LIPITOR) 10 mg tablet TAKE 1 TABLET BY MOUTH EVERY DAY 90 tablet 1 08/28/19 25 Active dilTIAZem CD (CARDIZEM CD) 120 mg 24 hr capsule TAKE 1 CAPSULE BY MOUTH AT BEDTIME 90 capsule 1 08/28/19 25 Active oxyCODONE (ROXICODONE) 10 mg immediate release tablet Take 1 tablet (10 mg total) by mouth every 8 (eight) hours if needed for severe pain. Max Daily Amount: 30 mg 84 tablet 09/04/19 25 Active docusate sodium (COLACE) 100 mg capsule Take 1 capsule (100 mg total) by mouth 2 (two) times a day. 60 capsule 3 09/07/19 25 Active dilTIAZem CD (CARDIZEM CD) 120 mg 24 hr capsule Take 1 capsule (120 mg total) by mouth at bedtime. at bedtime 90 each 1 09/07/19 25 025 Active docusate sodium (COLACE) 100 mg capsule Take 1 capsule (100 mg total) by mouth 2 (two) times a day. 03/12/20 24 025 Discontinued(Re order) atorvastatin (LIPITOR) 10 mg tablet Take 1 tablet (10 mg total) by mouth 1 (one) time each day. 025 Discontinued oxyCODONE (ROXICODONE) 10 mg immediate release tablet Take 1 tablet (10 mg total) by mouth every 8 (eight) hours if needed for severe pain. Max Daily Amount: 30 mg 84 tablet 08/03/19 25 025 Discontinued(Re order) cloNIDine (CATAPRES) 0.1 mg tablet Take 1 tablet (0.1 mg total) by mouth at bedtime. 30 each 08/03/19 25 025 Discontinued(Re order) dilTIAZem CD (CARDIZEM CD) 120 mg 24 hr capsule Take 1 capsule (120 mg total) by mouth. at bedtime 07/07/20 025 Discontinued(Re order) Active Problems Problem Noted Date Diagnosed Date Atrial enlargement, bilateral 05/18/2024 Tobacco use disorder 01/06/2019 Overview (05/29/2024): LDCT 01/14. Repeat 12 mo. Abnormal MRI, lumbar spine 03/12/2017 Chronic low back pain 03/12/2017 Psoriasis 01/17/2016 Overview (05/29/2024): Face. 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 Overview (05/29/2024): L wrist Diverticulosis 08/03/2015 Depression 07/21/2015 Overview (05/29/2024): Follows with psych for meds Essential hypertension 07/21/2015 History of alcohol abuse 07/21/2015 Hypercholesterolemia 07/21/2015 Encounters Date Type Department Care Team Description 09/07/2024 2:30 PM EST Office Visit Adult Medicine [address] [phone] Rosetta Higgins MD Primary hypertension (Primary Dx); Chronic low back pain, unspecified back pain laterality, unspecified whether sciatica present; Chronic neck pain 09/03/2024 Telephone Adult [address] [phone] Claire Martinez MA 09/03/2024 Telephone Adult [facility] [address] [place] [phone] Rosetta Higgins MD Appointment 09/02/2024 1:30 PM EST - 09/02/2024 11:59 PM EST Hospital Encounter [address] [phone] Impingement syndrome of left shoulder Discharge Disposition: Home or Self Care 08/03/2024 1:30 PM EST Office Visit [address] [phone] Rosetta Higgins MD Essential hypertension (Primary Dx); Arthritis, wrist; Inflammatory arthritis 08/03/[address] [phone] Rosetta Tavarez MA 07/17/[address] [phone] Ciaran Wiggins, RN Hospital Follow-up 07/14/[address] [phone] Rosetta Higgins MD 07/06/[address] [phone] Miriam Gómez LPN 07/03/[address] [phone] Rosetta Higgins MD BP and Mag elevated worried about surgery want pcp advise. 07/02/[address] [phone] Rosetta Higgins MD Pre-op Exam 06/23/2024 10:00 AM EST Consult [address] [phone] Rosetta Higgins MD Preop examination (Primary Dx); Chronic low back pain, unspecified back pain laterality, unspecified whether sciatica present from Last 3 Months Immunizations Name Administration Dates Next Due Influenza Quadravalent, MDCK , 0.5ml, preservative free (Flucelvax) 6mo and older 05/21/2017,06/05/2016 Influenza Quadravalent, MDCK , 0.5ml, with preservative (Flucelvax) 6mo and older 05/15/2019 Influenza trivalent, 0.5mL ( Fluad) 65yo and older 04/21/2024,03/21/2020,05/12/2018,05/14 Influenza, Unspecified 05/21/2017,05/29/2016 [employer]vance Covid-19 Bivalent, Or iginal + Ba.1 (Non-Exajoule [employer] Bivalent) 04/12/2022 [employer] SARS-CoV-2 COVID-19, mRNA, LNP-S, preservative free 05/16/2023 Pneumococcal conjugate 13 va lent (Prevnar 13, PCV13) 2mo and older 08/04/2018 Pneumococcal polysaccharide 23 valent (Pneumovax 23) 2yo and older 03/21/2020 Tdap Tetanus diptheria acell ular pertussis (Boostrix; Adacel) 7yo and older 01/17/2016 Zoster Live 01/13/2017 Surgical History Surgery Date Site/Laterality Comments CARPAL TUNNEL RELEASE 2011 PROCEDURE: MA NEUROPLASTY &/TRANSPOS MEDIAN NRV CARPAL TUNNE COLONOSCOPY 01/16/2010 PROCEDURE: HISTORICAL COLONOSCOPY; COMMENT: 4 mm tubular adenoma COLONOSCOPY 2003 PROCEDURE: HISTORICAL COLONOSCOPY; COMMENT: No polyps COLONOSCOPY 2015 PROCEDURE: HISTORICAL COLONOSCOPY; COMMENT: No polyps Medical History Medical History Date Comments HTN (hypertension) DX:HTN (hyper tension) Depression DX:Depression Anxiety DX:Anxiety Colon polyps 11/04/2003 DX:Colon polyps Tubular adenoma of colon 01/16/2010 DX:Tubu lar adenoma of colon Diverticulosis 01/16/2010 DX:Diverticulosi s Hemorrhoids, internal 01/16/2010 DX:Hemorrh oids, internal Carpal tunnel syndrome, bilateral 08/03/2015 DX:Carpal tunnel syndrome, bilateral; COMMENT: R > L Atherosclerosis of both carotid arteries DX:Atherosclerosis of both carotid arteries; COMMENT: Duplex scan 04/27/10 Fracture, Colles, right, closed DX:Fracture, Colles, right, closed Osteoarthritis of hand, primary localized 08/03/19 16 DX:Osteoarthritis of hand, primary localized; COMMENT: R wrist History of alcohol abuse 07/21/2015 DX:Hist ory of alcohol abuse Hypercholesterolemia 07/21/2015 DX:Hypercho lesterolemia Essential hypertension 07/21/2015 DX:Essent ial hypertension 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 History of colonic polyps 10/05/2015 DX:His tory of colonic polyps; COMMENT: Diminutive tubular adenoma 2009, negative colonoscopy 2015, next colonoscopy 2025. Family History Medical History Relation Name Comments Hyperlipidemia Brother Hypertension Brother Heart attack Father alcoholism Other: Other Mother Unknown cause o f Heart attack Paternal Grandfather Heart attack Paternal Grandmother Breast cancer Sister 1 half sister Lung cancer Sister 2 haof sister Hyperlipidemia Son Relation Name Status Comments Brother Alive Father Mother Paternal Grandfather Paternal Grandmother Sister 1 half sister Alive Sister 2 haof sister Son Alive Social History Tobacco Use Types Packs/Day Years [...] on file Sexual Orientation Not on file Obstetrics History Last Filed Vital Signs Vital Sign Reading Time Taken Comments Blood Pressure 169/104 09/07/2024 2:39 PM EST Pulse 82 08/03/2024 1:34 PM EST Temperature 36.8 ??C (98.2 ??F) 09/07/2024 2:39 PM ES T Respiratory Rate - - Oxygen Saturation - - Inhaled Oxygen Concentration - - Weight 67.1 kg (148 lb) 09/07/2024 2:39 PM EST Height 165.1 cm (5' 5 ) 09/07/2024 2:39 PM EST Body Mass Index 24.63 09/07/2024 2:39 PM EST Plan of Treatment Upcoming Encounters Date Type Department Care Team (Late st Contact Info) Description 09/28/2024 9:40 AM EST Office Visit [facility] [address] [place] [phone] Angel Christensen NP [address] [place] [address] [address] [place] [address] 11/03/2024 9:30 AM EDT Office Visit Adult Medicine - [place] [address] [place] [phone] Rosetta Kiser MD [address] [place] [address] Health Maintenance Due Date Last Done Comments Hepatitis A Vaccines (1 of 2 - Risk 2-dose series) 11/08/1971 Hepatitis B Vaccines (1 of 3 - Risk 3-dose series) 2012 RSV Immunization Patients 60+ Years Old (1 - Risk 60-74 years 1-dose series) 2012 Depression Screening 07/07/2022 Falls Risk Assessment 07/07/2022 Social Influencers of Health Screening 07/07/2022 COVID-19 Vaccine ( season) 2024 05/16/2023, 04/28/2023, 11/16/2021, Additional history exists Medicare Annual Wellness Visit 10/16/2024 10/17/2023 Hypertension/CHF/CAD Annual BMP Blood Test 06/23/2025 06/23/2024, 05/18/2024, 05/18/2024, Additional history exists Colorectal Cancer Screening: Colonoscopy 10/04/2025 10/05/2015 Cholesterol Screening (Lipid Panel) 04/24/2029 04/24/2024, 04/24/2024 DTaP,Tdap,and Td Vaccines (3 - Td or Tdap) 09/15/2034 09/15/2024, 01/17/2016 Pneumococcal Vaccine: 50+ Years Completed 03/14/2023, 03/21/2020, 08/04/2018 Zoster Vaccines Completed 06/14/2023, 01/26, 01/13/2017 Hepatitis C Screening Completed 01/08/2024, 024 Abdominal Aortic Aneurysm (AAA) Screen Completed 03/02/2024, 08/11/2018 Influenza Vaccine Completed 04/21/2024, , 04/12/2022, Additional history exists HIB Vaccines Aged Out No longer eligi ble based on patient's age to complete this topic HPV Vaccines Aged Out No longer eligi ble based on patient's age to complete this topic IPV Vaccines Aged Out No longer eligi ble based on patient's age to complete this topic MMR Vaccines Aged Out No longer eligi ble based on patient's age to complete this topic Meningococcal ACWY Vaccine Aged Out N o longer eligible based on patient's age to complete this topic Meningococcal B Vacine Aged Out No lo nger eligible based on patient's age to complete this topic RSV Immunization Patients Under 20 months Aged Out No longer eligible based on patient's age to complete this topic Varicella Vaccines Aged Out No longer eligible based on patient's age to complete this topic Procedures Procedure Name Priority Date/Time Associated Diagnosis Comments XR SHOULDER 2+ VIEWS LEFT Routine 09/02/2024 2:15 PM EST Impingement syndrome of left shoulder COMPREHENSIVE METABOLIC PANEL Routine 06/23/2024 10:57 AM EST Preop examination LIPID PANEL Routine 04/24/2024 ABDOMINAL AORTIC ANEURYSM SCRREN Routine 03/02/2024 HEPATITIS C SCREENING Routine 01/08/2024 COLONOSCOPY Routine 10/05/2015 from Last 3 Months or Most Recently Relevant to Health Maintenance Results * XR Shoulder 2+ Views Left [...] Signed Date: 09/02/2024 21:54 ET Workstation ID: [id number] Transcribed By: Self Edit Transcribed Date: 09/02/2024 [...] Signed Date: 09/02/2024 21:54 ET Workstation ID: [id number] Transcribed By: Self Edit Transcribed Date: 09/02/2024 21:53 ET Dax MELISSA IMG XR PROCEDURES Final Result * (ABNORMAL) Comprehensive metabolic panel (06/23/2024 10:57 AM EST) Sodium 140 133 - 145 mmol/L LAB CHEMISTRY METHOD 06/23/2024 1:02 PM EST [facility] Potassium 3.9 3.5 - 5.5 mmol/L LAB CHEMISTRY METHOD 06/23/2024 1:02 PM EST [facility] Chloride 104 96 - 110 mmol/L LAB CHEMISTRY METHOD 06/23/2024 1:02 PM EST [facility] CO2 28 21 - 32 mmol/L LAB CHEMISTRY METHOD 06/23/2024 1:02 PM [facility] Anion Gap 8 3 - 11 LAB CHEMISTRY METHOD 06/23/2024 1:02 PM [facility] Glucose 84 70 - 100 mg/dL LAB CHEMISTRY METHOD 06/23/2024 1:02 PM [facility] BUN 32(H) 5 - 25 mg/dL LAB CHEMISTRY METHOD 06/23/2024 1:02 PM [facility] Creatinine 1.40(H) 0.70 - 1.30 mg/dL LAB CHEMISTRY METHOD 06/23/2024 1:02 PM [facility] eGFR 54(L) >=60 mL/min/1. 73m2 LAB CHEMISTRY METHOD 06/23/2024 1:02 PM [facility] Comment:Calculation based on the??Chronic Kidney Disease Epidemiology Collaboration (CKD-EPI) equation refit??without adjustment for race. BUN/Creatinine Ratio 22.9 LAB CHEMISTRY METHOD 06/23/2024 1:02 PM [facility] Calcium 9.7 8.5 - 10.5 mg/dL LAB CHEMISTRY METHOD 06/23/2024 1:02 PM [facility] AST (SGOT) 33 10 - 42 unit/L LAB CHEMISTRY METHOD 06/23/2024 1:02 PM [facility] ALT (SGPT) 41 10 - 60 unit/L LAB CHEMISTRY METHOD 06/23/2024 1:02 PM [facility] Alkaline Phosphatase 101 42 - 121 unit/L LAB CHEMISTRY METHOD 06/23/2024 1:02 PM [facility] Total Protein 7.4 6.0 - 8.0 g/dL LAB CHEMISTRY METHOD 06/23/2024 1:02 PM [facility] Albumin 3.9 3.2 - 5.0 g/dL LAB CHEMISTRY METHOD 06/23/2024 1:02 PM [facility] Total Bilirubin 0.6 0.0 - 1.4 mg/dL LAB CHEMISTRY METHOD 06/23/2024 1:02 PM EST [facility] Blood Venous blood specimen / Unknown Venipuncture / Unknown 06/23/2024 10:57 AM EST 06/23/2024 10:57 AM EST Rosetta Kiser MD LAB BLOOD ORDERABL ES Final Result [facility] [address] [place] [address], [place] [phone] * (ABNORMAL) Lipid panel (04/24/2024) [facility] LDL/HDL Ratio 3 0 - 4 Triglycerides 118 0 - 150 mg/dL Cholesterol 204(A) 0 - 200 mg/dL HDL 70 >=40 mg/dL LDL Cholesterol 111(A) 0 - 100 mg/dL Blood Venous blood specimen / Unknown Historical Provider LAB BLOOD ORDERABLES Ashley l Result * Abdominal Aortic Aneurysm Screen (03/02/2024) Pathologist [facility] Abdominal Aortic Aneurysm (AAA) Screening abstracted Anatomical Region Laterality Modality Other Historical Darell [facility] Final Result * Hepatitis C Screening (01/08/2024) [facility] Hepatitis C Screening abstracted Historical Provider HEALTH MAINTENANCE Final Result * Colonoscopy (10/05/2015) Pathologist [facility] Colonoscopy no interpretation , abstracted Anatomical Region Laterality Modality Other Historical Provider HEALTH MAINTENANCE Final Result from Last 3 Months or Most Recently Relevant to Health Maintenance Insurance MEDICARE [facility] Advance Directives Documents on File Type Date Recorded Patient Ice Platform Supervisor Expl anation Health Care Decision (hx) 09/15/2019 AD VERDIN DIRECTIVE Health Care Decision (hx) 09/11/2019 AD VERDIN DIRECTIVE Health Care Decision (hx) 09/11/2019 AD VERDIN DIRECTIVE Health Care Decision (hx) 09/11/2019 AD VERDIN DIRECTIVE Health Care Decision (hx) 09/11/2019 AD VERDIN DIRECTIVE Health Care Decision (hx) 09/11/2019 AD VERDIN DIRECTIVE Health Care Decision (hx) 09/11/2019 AD VERDIN DIRECTIVE Health Care Decision (hx) 09/11/2019 AD VERDIN DIRECTIVE Health Care Decision (hx) 09/11/2019 AD VERDIN DIRECTIVE Health Care Decision (hx) 09/11/2019 AD VERDIN DIRECTIVE Health Care Decision (hx) 09/11/2019 AD VERDIN DIRECTIVE Health Care Decision (hx) 09/11/2019 AD VERDIN DIRECTIVE Health Care Decision (hx) 09/11/2019 AD VERDIN DIRECTIVE Health Care Decision (hx) 09/11/2019 AD VERDIN DIRECTIVE Health Care Decision (hx) 09/11/2019 AD VERDIN DIRECTIVE Health Care Decision (hx) 09/11/2019 AD VERDIN DIRECTIVE Health Care Decision (hx) 09/11/2019 AD VERDIN DIRECTIVE Health Care Decision (hx) 09/11/2019 AD VERDIN DIRECTIVE Health Care Decision (hx) 09/11/2019 AD VERDIN DIRECTIVE Health Care Decision (hx) 09/11/2019 AD VERDIN DIRECTIVE Health Care Decision (hx) 09/11/2019 AD VERDIN DIRECTIVE Health Care Decision (hx) 09/11/2019 AD VERDIN DIRECTIVE Health Care Decision (hx) 09/11/2019 AD VERDIN DIRECTIVE Health Care Decision (hx) 09/11/2019 AD VERDIN DIRECTIVE Health Care Decision (hx) 09/11/2019 AD VERDIN DIRECTIVE Care Teams Traffic Court Referee Relationship Specialty Start Date End Date Rosetta Kiser MD [address] [place] [id number] PCP - General Internal Medicine 09/02/24
[2024-09-22] MEDS: methocarbamoL 750 MG TABLET PO ×2 (06:35→15:26)
[2024-09-22] MEDS: Gabapentin 300 MG CAPSULE PO (06:36)
[2024-09-22] MEDS: Lactated Ringers 1,000 ML 100 ML IVCONT (06:37)
--- NOTE | 2024-09-22 07:02 | P.HPSUR_ITS ---
Pre-Procedural Eval Section A - 24 Hr Update-Section A only Date of Service: 09/22/24 The patient is an INPATIENT: No Changes since office visit: No Cold of Flu in the past 2 weeks, No New Medical Problems, No Changes in Medication and No Patient answered all questions The patient has been examined within 24 hours of the surgical procedure. The History & Physical has been completed within 30 days and I have reviewed it.: No Section B - Complete if H&P > 30 days Chief Complaint: s/p L3-4 L4-5 L5-S1 oblique Lumbar Interbdy Fusion Allergies: Allergies Allergy/AdvReac Type Severity Reaction Status Date / Time No Known Allergies Allergy Verified 09/22/24 06:19 Review of Systems Sugical H&P ROS: Negative: Constitution, Cardiovascular, Respiratory, Neurological, Psychiatric, Hem-Onc, Allergic/Immunologic, Gastrointestinal, Genitourinary, Musculoskeletal, Integumentary, Endocrine and Eyes/Ears/Nose/Thr oat Exam Surgical H&P Exam: Normal: HEENT, Normal: Heart, Normal: Lungs, Normal: Extremities, Normal: Abdomen, Normal: Skin and Normal: Neurological (awake, alert,oriented x 3 ) Plan Diagnosis/Plan: Unchanged L3-S1 oblique lumbar interbody fusion Time Spent With Patient Time: Total time managing care of this patient today __5__ minutes.
[2024-09-22] MEDS: ceFAZolin Sodium/Dextrose,Iso 2 GM/50 ML PIGGYBACK IV ×3 (07:24→20:05)
--- NOTE | 2024-09-22 07:32 | PHA.MEDREC ---
Addendum entered by Natividad Hernandez [facility] 09/22/24 07:33: (Also spoke to patient to confirm med list). Original Note: Pharmacy Consult ? Medication Reconciliation Pharmacy has reviewed the medication reconciliation done by nursing.
[2024-09-22] MEDS: Acetaminophen 1,000 MG/100 ML PIGGYBACK 400 MG IV ×3 (08:03→20:55)
--- NOTE | 2024-09-22 11:19 | P.OP_ITS ---
Operative Note Operative Note Date of Service: 09/22/24 Narrative: Procedure: Exposure for Oblique Inrebody Lumbar Fustion L3-S1 Surgeon: Aida for exposure Co-Surgeon: Jackson The patient was brought to the operating room, positioned on the table supine and general anesthesia was administered. Patient was then turned to the right decubitus position with left side up. C-arm image was obtained in AP and lateral planes and anterior border of the spine and disk space projections were marked on the skin.The abdomen was clipped and then prepped and draped in the usual sterile fashion. After timeout was done, incision was made from 2 cm medial and inferior to the Anterior Superior iliac spine in oblique direction 7 cm long. It was brought through subcutaneous tissue and the external oblique aponeurosis in line with the skin incision and transverse and internal abdominal muscles were split along the fibers. The pre-peritoneal plane was entered, peritoneum was bluntly dissected off and iliac artery pulse was felt. Self- retaining retractor with two deep blades was inserted and peritoneum protected with moist gauzes. Left internal iliac vein was identified and dissection was carried along the medial surface of the iliac vein up to the bifurcation. The middle sacral vessels were transected between clips and L5-S1 disc space was bluntly and sharply dissected using bipolar cautery staying directly on the surface of the spine. The midline of the disk space was marked with C-arm image guide. Dr. Paz then proceeded with the diskecvtomy and fusion at three levels, which will be dictated separately by him. After this was done, hemostasis was checked and was excellent. Left ureter was examined prior to closure and was intact. There was good left external iliac artery pulse. Diluted 0.5% Marcaine and Lidocaine was injected in the fascia and subcutaneous tissue. The incision was irrigated and closed by layers using a 2-0 Vicryl for transverse fascia, 0 PDS for the external oblique, 3-0 Vicryl for subcutaneous tissue and 4-0 Monocryl for skin. Exo-fin glue was then applied.
--- NOTE | 2024-09-22 12:55 | P.OP_ITS ---
Operative Note Operative Note Date of Service: 09/22/24 Narrative: Preoperative Diagnosis: L3-4, L4-5, L5 S1 Lumbar degenerative disc disease; lumbar degenerative; spinal stenosis; back pain; neurogenic claudication Postoperative diagnosis: Same Procedure: L3-4, L4-5 and L5-S1 discectomy, arthrodesis and implantation cages through an oblique lumbar interbody fusion (OLIF); posterior instrumented fusion L3-S1; allograft Consent Informed Consent was obtained for this operation. I have explained the nature, purpose and benefits of the operation. I have discussed the risks and benefit of the operation including possible complications or adverse events with patient/family. Alternative(s) were discussed with the patient with their relative benefits and risks as well as the consequences of not accepting the operation were included in obtaining consent. Surgeon: CORINNA MORGAN MD, PHD Procedure Assisted By: NEELA PARRA MD and SHIN Jones Description of Procedure This patient is suffering from back pain and neurogenic claudication due to severe lumbar degenerative disc disease L3-S1, lumbar degenerative scoliosis and spinal stenosis.. The patient was offered an oblique lumbar interbody fusion L3- S1 and posterior instrumented fusion L3-S1. The procedure complications were explained. The patient was consented. The patient was brought to the operating room and endotracheally intubated. The patient was put in a lateral position with the left side up. Prep and drape was done followed by timeout. Dr. Parra, co-surgeon, provided the access to the L5-S1 disc space through an oblique retroperitoneal approach. He was assisted by physician production administrative assistant who performed manual retraction. He will dictate the approach in a separate operative note. When the L5-S1 disc space was exposed I took over the procedure. An annulotomy was done followed by a partial discectomy. Sequential trial implants were inserted and advanced towards the posterior wall of the disc space. I completed the discectomy and prepare the endplates. Then a 34 x 26 x 11 and 15 degree lordosis Astura cage filled with allograft was inserted into the disc space. Anterior instrumentation was added to secure the implant. One 25 mm long screw was inserted into the S1 vertebral body. The retractor was removed. Then attention was turned to the L3-4 and L4-5 discs levels. Sequential dilators were placed through the same incision and docked onto the anterior 1/3 of the L4-5 disc space confirmed with x-ray. A retractor was inserted and opened to expose the L4-5 disc space. An L4-5 annulotomy was done after which with the an elevator Aguilar disc material was released from the endplates in the contralateral annulus was perforated. More disc material was removed after which the endplates were prepared. An 8 mm and 10 mm with 6 degree lordosis trial implants were inserted. Then a 18 x 50 my 10 and 6 degree lordosis 4 web cage was inserted filled with allograft under fluoroscopic guidance. Then attention was turned to the L3-4 level where a similar procedure was done. A 18 x 15 x 10 and 0 degree lordosis 4 web cage filled with allograft was inserted at this level after completion of the diskectomy and preparation of the endplates. The incision was closed byDr. Parra and the physician production administrative assistant. This marked the 1st part of the procedure. Accordingly the patient was turned prone on the Abdoul spine table and 2 C arms were installed for fluoroscopy. Prep and drape was done followed by a second timeout. Paramedian incisions were made lateral from the L3, L4, L5 and S1 pedicles. The muscle fascia was opened and the musculature was split bluntly to expose the posterolateral gutter. The following steps were taken for pedicle screw placement: The pediguard tap was used to create a transpedicular trajectory into the vertebral body. A K wire was advanced. A specially designed instrument was advanced over the K wire to decorticate the posterolateral gutter. Pedicle screw was advanced after which the K wire was removed. Following these steps pedicle screws were placed in the bilateral L3, L4, L5 and S1 pedicles. Total of 8 screws were placed with the following measurements: 6.5 by 45 mm in the L3, L4 and L5 pedicles and 6.5 x 40 mm screws in the bilateral S1 pedicles. A 100 mm michael was tunneled bilaterally and locked down with locking caps. The extension towers were removed. The posterolateral fusion was completed by laying down allograft in the posterolateral gutter. Hemostasis was done. The paramedian incisions were closed with an 0 Vicryl to fascia and 3-0 Vicryl to subdermal layer. Steri-Strips were used to approximate the incision. An OpSite with Tegaderm was used to cover the incisions. All sponge and needle counts were correct. The patient was extubated and transported in stable condition to recovery room. Anesthesia: General Estimated Blood Loss (ml): 80 mL Duration of Surgery: 4 hours 30 minutes Complications: None Postoperative Plan: Admit to inpatient for observation
[2024-09-22] MEDS: Ketorolac Tromethamine 15 MG/ML VIAL IVPUSH ×2 (13:05→20:05)
[2024-09-22] MEDS: fentaNYL citrate/PF 100 MCG/2 ML VIAL 50 MCG IVPUSH ×2 (13:15→13:20)
[2024-09-22] MEDS: HYDROmorphone HCl 0.5 MG/0.5 ML SYRINGE IVPUSH (13:30)
[2024-09-22] MEDS: 0.9 % Sodium Chloride 1,000 ML 75 ML IVCONT (15:27)
[2024-09-22] MEDS: hydrALAZINE HCl 50 MG TABLET PO ×2 (15:27→20:56)
[2024-09-22] MEDS: oxyCODONE HCl Immed Release 5 MG TABLET 10 MG PO ×2 (15:27→20:04)
[2024-09-22] MEDS: HYDROmorphone HCl 1 MG/ML SYRINGE IVPUSH ×2 (16:43→22:59)
[2024-09-22] MEDS: Ferrous Sulfate 324 MG TABLET.DR PO (20:55)
[2024-09-22] MEDS: Atorvastatin Calcium 10 MG TABLET PO (20:55)
[2024-09-22] MEDS: cloNIDine HCL 0.2 MG TABLET PO (20:55)
[2024-09-22] MEDS: Docusate Sodium 100 MG CAPSULE PO (20:55)
[2024-09-22] MEDS: Magnesium Oxide 400 MG TABLET PO (20:56)
[2024-09-22] MEDS: dilTIAZem HCL CD 120 MG CAP.ER.DEG PO (20:56)
[2024-09-23] MEDS: Ketorolac Tromethamine 15 MG/ML VIAL IVPUSH ×2 (01:26→06:08)
[2024-09-23] MEDS: oxyCODONE HCl Immed Release 5 MG TABLET 10 MG PO ×3 (01:27→10:20)
[2024-09-23] MEDS: ceFAZolin Sodium/Dextrose,Iso 2 GM/50 ML PIGGYBACK IV (01:27)
[2024-09-23] MEDS: Acetaminophen 1,000 MG/100 ML PIGGYBACK 400 MG IV (02:08)
[2024-09-23] MEDS: HYDROmorphone HCl 1 MG/ML SYRINGE IVPUSH ×3 (04:30→11:09)
[2024-09-23] MEDS: 0.9 % Sodium Chloride 1,000 ML 75 ML IVCONT (04:31)
[2024-09-23 05:10] VITALS: BP 137/82; PULSE 75; RESP 17; TEMP 36.3; O2SAT 95
[2024-09-23 07:30] VITALS: BP 137/82; PULSE 75; O2SAT 95
[2024-09-23 07:40] VITALS: BP 126/76; PULSE 81; RESP 17; TEMP 36.8; O2SAT 98
--- NOTE | 2024-09-23 07:45 | PM.DS ---
DS: Providers Provider Date of Service: 09/23/24 Date of admission: 09/22/24 06:18 Date of discharge: 09/23/24 Primary care physician: Rosetta Kiser MD DS: Summary Time Attestation Discharge Coordination Time (in mins): 10 Quality: Safe Use of Opioids Does Pt have an Active Cancer Diagnosis on the Problem List?: No Quality: Stroke Does the patient have a stroke diagnosis?: No Physical Exam Vital Signs: Vital Signs: Last Vital Signs Temp 98.2 F 09/23/24 07:40 Pulse 81 09/23/24 07:40 Resp 17 09/23/24 07:40 BP 126/76 09/23/24 07:40 Pulse Ox 98 09/23/24 07:40 O2 Del Method Room Air 09/23/24 07:40 O2 Flow Rate 3 09/22/24 19:39 BMI result Body Mass Index 25.3 Discharge Plan Discharge Anticipated Discharge Date/Time: 09/23/24 08:04 Patient Disposition: Home, Self-Care Discharge Diagnosis: S/P L3-S1 OLIF Referrals: Rosetta Kiser MD [Primary Care Provider] - 1 Week Discharge Medications: New methocarbamol 750 mg tablet 750 mg PO TID PRN (Reason: muscle spasms) Qty: 30 0RF gabapentin 300 mg capsule 300 mg PO TID PRN (Reason: nerve pain) Qty: 30 0RF Continued desonide 0.05 % Cream 1 appl TOPICAL BID atorvastatin 10 mg tablet 10 mg PO BEDTIME amlodipine 10 mg tablet 10 mg PO DAILY ferrous sulfate 325 mg (65 mg iron) tablet 325 mg PO BID docusate sodium 100 mg Capsule 100 mg PO DAILY ketoconazole 2 % Cream 1 appl TOPICAL BID PRN (Reason: Skin Irritation) magnesium oxide 250 mg magnesium tablet 375 mg PO BEDTIME escitalopram oxalate 20 mg tablet 20 mg PO DAILY bupropion HCl 300 mg tablet extended release 24 hr 300 mg PO DAILY armodafinil 200 mg tablet 200 mg PO BEDTIME PRN (Reason: insomnia) omeprazole 20 mg capsule,delayed release(DR/EC) 20 mg PO DAILY oxycodone 10 mg tablet 10 mg PO Q8-10H PRN (Reason: pain) hydralazine 25 mg tablet 50 mg PO TID B-complex with vitamin C Tablet 1 tab PO DAILY sildenafil 100 mg tablet 100 mg PO DAILY PRN (Reason: Sexual Activity) clonidine HCl 0.1 mg tablet 0.2 mg PO BEDTIME diltiazem HCl 120 mg capsule,extended release 24hr 120 mg PO BEDTIME Held aspirin 81 mg Tablet,Delayed Release (Dr/Ec) 81 mg PO DAILY Hold Instructions: Resume on 09/27/24. Discharge Orders: Discharge Order (Routine); Ordered 09/23/24 Ordered By: Dillan Kumari Diet: Advance to usual diet Activity on Discharge: As tolerated Stand Alone Forms: Patient Portal Discharge page Print Language: Greenlandic Activity Restrictions/Additional Instructions: After your spinal surgery we ask you to observe the following restrictions/guidelines: Activity: It is normal to feel some discomfort as you increase your activity, but that will improve with time. We ask you avoid heavy lifting or acitivities that cause pain. As a general rule, 8lbs is a safe limit for lifting right after surgery. Walk as much as you feel comfortable but not to exhaustion. You will feel extra tired the first few days after surgery. Stay well hydrated. It is OK to walk up and down stairs You may return to driving when you are off narcotics (such as vicodin, oxycodone, dilaudid, etc), and you are back to normal functional capacity. If you have any concerns please check with office before driving. Return to work is specific to each patient and each surgery, so please speak with your doctor/PA at first follow up. Please bring paperwork such as FMLA at that time if you need it filled out. Medications: You are prescribed oxycodone 10 mg x 84 tablets per month. Last filled 09/05/24 for 28 days supply. Please continue this for pain control. We have also sent in prescriptions for methocarbamol (a muscle relaxer), and gabapentin (a nerve pain medication) please use these only as needed for breakthrough pain from your baseline oxycodone prescription. Please hold your aspirin for 3 days from today. We recommend you take 1,000mg Tylenol every 8 hours for the first few weeks after surgery, if you do not have any liver issues and can tolerate this medication. Do not exceed 4,000mg daily. We will give you a short supply of narcotics after surgery (usually one weeks worth). If you need more please call the office but do not use more than prescribed. You will need to give our office 48 hours notice if you need narcotics refilled and we do not fill narcotics on weekends or evenings. If you are on a narcotic, it is a good idea to take a stool softener such as colace or senna to avoid constipation If you take blood thinner such as aspirin, Plavix, Coumadin, Effient, Eliquis etc for conditions such as Afib, DVT, Pulmonary embolus, coronary disease, stents etc please speak with your surgeon about specific details as to when you can resume these medications. You can resume NSAIDs on post op day 1 (eg: Motrin, Naproxen, etc). Follow up: Please call the office, , after surgery to arrange a 3 week follow up for wound check. Wound Care: You may remove your dressing on the first day after surgery. ?You may ?leave open to air. Please do not remove the steri strips underneath. they will fall off on their own in one week. IT IS NORMAL FOR THE WOUND TO OOZE OR BE BLOODY FOR A FEW DAYS AFTER SURGERY. ?IF THIS HAPPENS JUST PLACE NEW DRESSING OVER IT TO AVOID STAINING CLOTHES. You may shower on post op day # 1 We ask that you do not let the water soak the wound. If it does get wet, just towel dry lightly. Please do not scrub your incision or place any type of chemical/ointment on the wound. No tub baths, pools or jacuzzis for one month. If you have any leaking or redness from your wound, or fevers, please call the office. Care Plan Goals: Return to normal activity as tolerated Health Concerns: None Plan of Treatment: Follow-up in clinic in 2-3 weeks Assessment: POD: 1 Procedure: L3-S1 OLIF Luis Enrique is a pleasant 73 year old male who underwent L3-S1 OLIF yesterday with Dr. Paz. He has been progressing normally and is actually doing better than expected for ma 3 level OLIF. He is very happy with his surgery and reports he will be sending his fiance to see us for her back issues. He reports he has been up OOB walking around is otherwise doing well. He has a parkinson catheter in place. He feels his symptoms are much better than pre-operatively. He still reports mild pain low back pain, with good relief with pain medication. He is tolerating his current diet. Afebrile, vital signs stable. Full strength 5/5 bilateral LE's Back dressings are CDI. Lateral incision site is covered with a steristrip & exofin. No active sanguineous drainage. No significant swelling. Plan: Pleasant 73 year old male who underwent L3-S1 OLIF yesterday with Dr. Paz. He is progressing very well and is very happy with his surgery. He has done well with PT this morning. [facility] staff removed his parkinson after we saw him for evaluation. He will need to complete a voiding trial. Overall the patient meets criteria to be medically discharged home. If he fails his voiding trial he can still be discharged but will need to DC with parkinson in and f/u with urology this week. He was seen at bedside with Dr. Pza who agrees to this plan. Dillan Paz MD,PhD [facility]
--- NOTE | 2024-09-23 08:06 | HO.NEURO.PN ---
Neurosurgery Operative Note Date of Service: 09/23/24 Narrative: POD: 1 Procedure: L3-S1 OLIF Luis Enrique is a pleasant 73 year old male who underwent L3-S1 OLIF yesterday with Dr. Paz. He has been progressing normally and is actually doing better than expected for ma 3 level OLIF. He is very happy with his surgery and reports he will be sending his fiance to see us for her back issues. He reports he has been up OOB walking around is otherwise doing well. He has a parkinson catheter in place. He feels his symptoms are much better than pre-operatively. He still reports mild pain low back pain, with good relief with pain medication. He is tolerating his current diet. Afebrile, vital signs stable. Full strength 5/5 bilateral LE's Back dressings are CDI. Lateral incision site is covered with a steristrip & exofin. No active sanguineous drainage. No significant swelling. Plan: Renita 73 year old male who underwent L3-S1 OLIF yesterday with Dr. Paz. He is progressing very well and is very happy with his surgery. He has done well with PT this morning. [facility] staff removed his parkinson after we saw him for evaluation. He will need to complete a voiding trial. Overall the patient meets criteria to be medically discharged home. If he fails his voiding trial he can still be discharged but will need to DC with parkinson in and f/u with urology this week. He was seen at bedside with Dr. Paz who agrees to this plan. Dillan Paz MD,PhD [facility]
--- NOTE | 2024-09-23 08:24 | HO.POSTANES ---
Post Anesthesia Evaluation Post Anesthesia Evaluation Date of Service: 09/23/24 Vital Signs: Vital Signs Temp Pulse Resp BP Pulse Ox O2 Del Method 09/23/24 07:40 98.2 F 81 17 126/76 98 Room Air 09/23/24 07:30 75 137/82 95 09/23/24 05:10 97.3 F 75 17 137/82 95 Room Air 09/22/24 23:19 98.3 F 80 18 119/69 98 Room Air Anesthesia: General Endotracheal-GETA Mental Status: Awake Pain Control: Satisfactory Nausea/Vomiting: None Hydration: Adequate Anesthesia-Related Issues: No Anes. Related Issues
--- NOTE | 2024-09-23 08:54 | MHC.CM.PN ---
Addendum entered by Karen Mcfadden RN 09/23/24 11:16: No parkinson needed. Patient will dc home self care via private transport. Original Note: [facility] delivered. Patient lives in a home w/ his S.O. Functionally independent. Denies use of DME or services. PCP Rosetta Francis MD Reports he has an HCP naming his son, Cirilo Mcclelland, as HCA. Copy requested. States he will bring it to his f/u w/ Dr. Paz. DP: Goal is home self care. Medically cleared for dc today. Parkinson removed this AM and DTV @ 7950. If parkinson needs to be reinserted prior to dc patient would like [facility] services. Referral sent via [facility] to follow. S.O. will transport.
[2024-09-23 09:46] VITALS: BP 115/74
[2024-09-23] MEDS: amLODIPine Besylate 10 MG TABLET PO (09:46)
[2024-09-23] MEDS: Ferrous Sulfate 324 MG TABLET.DR PO (09:46)
[2024-09-23 09:47] VITALS: BP 115/74
[2024-09-23] MEDS: Escitalopram Oxalate 20 MG TABLET PO (09:47)
[2024-09-23] MEDS: methocarbamoL 750 MG TABLET PO (09:47)
[2024-09-23] MEDS: Multivitamin TABLET 1 TAB PO (09:47)
[2024-09-23] MEDS: hydrALAZINE HCl 50 MG TABLET PO (09:47)
[2024-09-23] MEDS: Omeprazole 20 MG CAPSULE.DR PO (09:47)
[2024-09-23] MEDS: buPROPion HCl XL 300 MG TAB.ER.24H PO (09:47)
[2024-09-23] MEDS: Docusate Sodium 100 MG CAPSULE PO (09:48)
--- NOTE | 2024-09-23 10:46 | PC.NURSE ---
0720- indwelling urinary catheter removed. Patient due to void by 1320. Patient voided at approximately 1030 for an unmeasured amount of urine. Reports he feels it was about a half a cup . Bladder scan obtained immediately after void with a PVR 0mL. SHIN Kumari notified.
[2024-09-23 11:45] VITALS: BP 127/71; PULSE 96; RESP 18; TEMP 36.9; O2SAT 96
== END 2024-09-23 12:10 | disposition home or self-care (01) | DRG 448 ==
LOC: HO.SSSA 06:20 → HO.S3 13:38
PROVIDERS: Nurse Practitioner; Admitting Provider Neurological Surgery; PCP Internal Medicine; Visit Provider Neurological Surgery
PROC: 0SG10A0 Fusion of 2 or more Lumbar Vertebral Joints with Interbody Fusion Device, Anterior Approach, Anterior Column, Open Approach (ICD-10-PCS; principal; 2024-09-22 07:30)
DX: M48.062 Spinal stenosis, lumbar region with neurogenic claudication (principal); F17.210 Nicotine dependence, cigarettes, uncomplicated; Z71.6 Tobacco abuse counseling; Z79.82 Long term (current) use of aspirin; Z79.899 Other long term (current) drug therapy
CPT/HCPCS: 36415; 74018; 80053; 83735; 85027; 86850; 86900; 86901; 97161; C1713; C1889; J0131; J0690; J1100; J1171; J1885; J2003; J2250; J2405; J2704; J3010; L8699

== ENCOUNTER 2024-09-22 06:18 | Outpatient (BNV) | payer MEDICARE, SELFPAY | END 2024-09-22 11:06 | PROVIDERS: Admitting Provider Neurological Surgery; PCP Internal Medicine; Visit Provider Radiology Diagnostic Radiology | DX: M43.26 Fusion of spine, lumbar region (principal) | CPT/HCPCS: 74018 ==

== ENCOUNTER → 2024-09-22 06:18 | Outpatient (BNV) | payer MEDICARE, SELFPAY | PROVIDERS: Admitting Provider Neurological Surgery; PCP Internal Medicine; Visit Provider Surgery | DX: M48.062 Spinal stenosis, lumbar region with neurogenic claudication (principal) | CPT/HCPCS: 20930; 22558; 22585; 22612; 22614; 22840; 22853 ==

== ENCOUNTER 2024-10-14 14:12 | Outpatient (AMB) | payer MEDICARE, SELFPAY ==
--- NOTE | 2024-10-14 14:13 | A.SPINEOV_ITS ---
Intake Visit Reasons: 1st post op Intake Note: Mr. Mcclelland is here today for his 1st post op appointment. [employer] Emotionally Disturbed Required: No Allergies No Known Allergies Allergy (Verified 09/22/24 06:19) Assessment & Plan Assessment & Plan (1) Lumbar stenosis with neurogenic claudication: Code(s): M48.062 - Spinal stenosis, lumbar region with neurogenic claudication Category: Medical Plan Procedure: L3-4, L4-5 and L5-S1 OLIF Luis Enrique comes in today for his 1st postoperative appointment. To recap he was initially seen in clinic for low back pain and shooting pains into his bilateral lower extremities with ambulation. Today, he reports that his pain has much improved since surgery. He still reports mild-moderate low back pain, but states it is much better than it was prior to surgery. He is completing all the ADLs around his home without significant issue. He asked several questions regarding the postoperative healing course, all of which I answered to the best of my ability. No new neurological deficits. The patient ambulates well and rises from a seated position without difficulty. The posterior incision sites are closed, and well healing. I would like Luis Enrique to follow up with us again in 6 weeks and obtain a set of x- rays at this visit. He did ask for a prescription of pain medication at the end of this visit, and I sent him in course of tramadol. I am hesitant to prescribe anything stronger than this, as he had passed troubles with his pain medication prescriptions which I outlined in my neurosurgery progress note before his discharge. Dillan Pza MD,PhD [facility] Medications: New tramadol 50 mg PO Q6H PRN 30 tabs 0RF pain Discontinued hydromorphone Discontinued Reason: Doctor's Order Take 1/2 tablet every 4 hours by mouth. Partial Fill upon patient request. 14 tabs 0RF breathrough pain Coding Level of Care Code Global (61755) Diagnoses Lumbar stenosis with neurogenic claudication M48.062
--- OUTSIDE RECORDS SUMMARY | 2024-10-14 16:35 | XMS_ITS | Encounter Summary ---
Author Organization [facility] Address [address] [place] [address] Care Team Providers Care Hydraulic Spinner Name Role Phone Rosetta Kiser MD Primary Care Prov ider Encounter Details Date Type Department Care Team ([facility] Contact Info) Description 09/03/2024 Telephone Adult [facility] [address] [place] [phone] Claire Martinez MA Social History Tobacco Use [...] Department Care Team (Late Contact Info) Description 11/03/2024 9:30 AM EDT Office Visit Adult [facility] [address] [place] [phone] Rosetta Kiser MD [address] [place] [address] 02/04/2025 10:10 AM EDT Office Visit [facility] [address] [place] [phone] Angel Christensen NP [address] [place] [address] [address] [place] [address] documented as of this encounter Visit Diagnoses Not on filedocumented in this encounter Care Teams Hydraulic Spinner Relationship Specialty Start Date End Date Rosetat Kiser MD [address] [place] [address] PCP - General Internal Medicine 09/02/24 documented as of this encounter
--- OUTSIDE RECORDS SUMMARY | 2024-10-14 16:35 | XMS_ITS | Clinical Summary ---
Author Organization [facility] Address [address] [place] [address] Care Team Providers Care Student Financial Aid Manager Name Role Phone Rosetta Kiser MD Primary Care Prov ider Allergies No known active allergies Medications buPROPion XL (WELLBUTRIN XL) 300 mg 24 hr tablet Take 1 tablet (300 mg total) by mouth 1 (one) time each day in the morning. 8 Active desonide (DESOWEN) 0.05 % cream Apply topically 2 (two) times a day. 8 Active escitalopram (LEXAPRO) 20 mg tablet Take 1 tablet (20 mg total) by mouth 1 (one) time each day. 8 Active ferrous sulfate 325 mg (65 mg elemental iron) tablet Take 1 tablet (325 mg total) by mouth 2 (two) times a day. 4 Active ketoconazole (NIZORAL) 2 % cream Apply topically 2 (two) times a day. 8 Active OMEGA-3 FATTY ACIDS-FISH OIL ORAL Take by mouth 1 (one) time each day. Active omeprazole (PriLOSEC) [address] capsule Take 1 capsule (20 mg total) by mouth 1 (one) time each day. 4 Active aspirin 81 mg EC tablet Take 1 tablet (81 mg total) by mouth 1 (one) time each day. Active hydrALAZINE (APRESOLINE) 25 mg tabletIndicati ons:hypertensi on Take 1 tablet (25 mg total) by mouth 3 (three) times a day. 90 each 5 4 12/08/19 25 Active magnesium oxide 250 mg magnesium tabletIndicati ons:Abnormal level of blood mineral TAKE 1 TABLET BY MOUTH EVERY DAY IN THE EVENING 90 tablet 1 4 Active atorvastatin (LIPITOR) 10 mg tablet TAKE 1 TABLET BY MOUTH EVERY DAY 90 tablet 1 5 Active oxyCODONE (ROXICODONE) 10 mg immediate release tablet Take 1 tablet (10 mg total) by mouth every 8 (eight) hours if needed for severe pain. Max Daily Amount: 30 mg 84 tablet 5 Active docusate sodium (COLACE) 100 mg capsule Take 1 capsule (100 mg total) by mouth 2 (two) times a day. 60 capsule 3 5 Active dilTIAZem CD (CARDIZEM CD) 120 mg 24 hr capsule Take 1 capsule (120 mg total) by mouth at bedtime. at bedtime 90 each 1 5 03/06/20 25 Active buPROPion XL (WELLBUTRIN XL) 150 mg 24 hr tablet Take 1 tablet (150 mg total) by mouth 1 (one) time each day. Do not crush, chew, or split. Active carvediloL (COREG) 3.125 mg tablet Take 1 tablet (3.125 mg total) by mouth 2 (two) times a day with meals. 60 each 5 Active amLODIPine (NORVASC) 10 mg tablet Take 1 Tablet by mouth daily for 180 days. 4 10/10/19 25 Discontinue d(Prescribe r Discontinue d) armodafiniL (NUVIGIL) 200 mg tablet Take 1 Tablet by mouth at bedtime as needed (sleep). 4 10/01/19 25 Discontinue d(Discontin ued by another clinician) chlorthalidone (HYGROTON) 25 mg tablet Take 0.5 tablets (12.5 mg total) by mouth 1 (one) time each day. 45 each 1 4 10/01/19 25 Discontinue d(Discontin ued by another clinician) cloNIDine (CATAPRES) 0.1 mg tablet Take 1 tablet (0.1 mg total) by mouth at bedtime. 30 each 5 5 10/01/19 25 Discontinue d(Discontin ued by another clinician) dilTIAZem CD (CARDIZEM CD) 120 mg 24 hr capsule TAKE 1 CAPSULE BY MOUTH AT BEDTIME 90 capsule 1 5 10/01/19 25 Discontinue d(Discontin ued by another clinician) Active Problems Problem Noted Date Diagnosed Date Palpitations 09/30/2024 Assessment & Plan (09/30/2024 10:54 AM EST): Has had longstanding elevated heart rates. No significant arrhythmias detected while hospitalized. Will get a 24hr holter monitor to assess rates and for arrhythmimas. Orders: Cardiac holter monitor (<= 48 hours); Future Other chest pain 09/30/2024 Assessment & Plan (09/30/2024 10:54 AM EST): Work up inpatient suggestive of noncardiac etiology or related to elevated blood pressures. Echocardiogram was reassuring. I reviewed his imaging and do not see any evidence of coronary artery calcification. He was noted to have minimal atherosclerotic calcification of the abdominal aorta and therefore it is reasonable to keep him on aspirin, but may have low threshold for discontinuing. No further cardiac testing regarding this symptom. Atrial enlargement, bilateral 05/18/2024 Tobacco use disorder 01/06/2019 Overview (05/29/2024): LDCT 01/14. Repeat 12 mo. Abnormal MRI, lumbar spine 03/12/2017 Chronic low back pain 03/12/2017 Psoriasis 01/17/2016 Overview (05/29/2024): Face. 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 Overview (05/29/2024): L wrist Diverticulosis 08/03/2015 Depression 07/21/2015 Overview (05/29/2024): Follows with psych for meds Essential hypertension 07/21/2015 Overview (09/30/2024): April & May - hospitalized initially with blood pressures in 200s/100s and started on medication, but came back with chest pain and elevated blood pressures April 2024 - echocardiogram showed preserved left ventricular systolic function LVEF 55 to 65% with no regional wall motion abnormalities, severe biatrial dilatation, mild aortic regurgitation, mild mitral regurgitation, mild tricuspid regurgitation with borderline elevated pulmonary artery systolic pressures Assessment & Plan (09/30/2024 10:54 AM EST): Longstanding history of hypertension with possible genetic component. Responding to antihypertensives although with several side effects and subsequent adjustments. He is currently on amlodipine and diltiazem which is not ideal, but the diltiazem is helping with his tachycardia. His blood pressure are still variable and ranging from 120s to 160s systolically. I will have him keep a stricter blood pressure log over the next two weeks with twice daily readings at the same times. Depending on those readings and his holter results, I would likely switch diltiazem for carvedilol. Nephrology did recommend starting an ARB during the last hospitalization and we could consider this as well. Continue with amlodipine, diltiazem and hydralazine. Orders: Ambulatory referral to Cardiology History of alcohol abuse 07/21/2015 Hypercholesterolemia 07/21/2015 Assessment & Plan (09/30/2024 10:54 AM EST): May 2024 - LDL 94. Continue with atorvastatin. Encounters Date Type Department Care Team Description 10/09/2024 Telephone [facility] - [address] [place] [address] Zainab Pierce RN Holter results and med changes 09/30/2024 9:40 AM EST Office Visit [facility] - [facility] [address] [place] [address] Angela Christensen NP Hypercholesterolemia (Primary Dx); Essential hypertension; Palpitations; Other chest pain 09/30/2024 8:00 AM EST Ancillary Procedure [facility] - [address] [place] [phone] Palpitations 09/23/2024 Telephone Adult Medicine - [place] [address] [place] [address] Rosetta Monaco MD Medication Problem 09/07/2024 2:30 PM EST Office Visit [address] [address] Rosetta Monaco MD Primary hypertension (Primary Dx); Chronic low back pain, unspecified back pain laterality, unspecified whether sciatica present; Chronic neck pain 09/03/2024 Telephone Adult [address] [address] Claire Martinez [place] 09/03/2024 Telephone Adult [address] [address] Rosetta Monaco MD Appointment 09/02/2024 1:30 PM EST - 09/02/2024 11:59 PM EST Hospital Encounter [address] [address] Impingement syndrome of left shoulder Discharge Disposition: Home or Self Care 08/03/2024 1:30 PM EST Office Visit [address] [phone] Rosetta Monaco MD Essential hypertension (Primary Dx); Arthritis, wrist; Inflammatory arthritis 08/03/[address] [address] Rosetta Tavarez [place] 07/17/2024 Telephone Adult [address] [address] Ciaran Alvarado, RN Hospital Follow-up from Last 3 Months Immunizations Name Administration Dates Next Due Influenza Quadravalent, MDCK , 0.5ml, preservative free (Flucelvax) 6mo and older 05/21/2017,06/05/2016 Influenza Quadravalent, MDCK , 0.5ml, with preservative (Flucelvax) 6mo and older 05/15/2019 Influenza trivalent, 0.5mL ( Fluad) 65yo and older 04/21/2024,03/21/2020,05/12/2018,05/14 Influenza, Unspecified 05/21/2017,05/29/2016 Pfizer Covid-19 Bivalent, Or iginal + Ba.1 (Non-US Trademark [employer] Bivalent) 04/12/2022 Pfizer SARS-CoV-2 COVID-19, mRNA, LNP-S, preservative free 05/16/2023 Pneumococcal conjugate 13 va lent (Prevnar 13, PCV13) 2mo and older 08/04/2018 Pneumococcal polysaccharide 23 valent (Pneumovax 23) 2yo and older 03/21/2020 Tdap Tetanus diptheria acell ular pertussis (Boostrix; Adacel) 7yo and older 01/17/2016 Zoster Live 01/13/2017 Surgical History Surgery Date Site/Laterality Comments CARPAL TUNNEL RELEASE 2011 PROCEDURE: ND NEUROPLASTY &/TRANSPOS MEDIAN NRV CARPAL TUNNE COLONOSCOPY [...] > L Atherosclerosis of both carotid arteries 6 DX:Atherosclerosis of both carotid arteries; COMMENT: Duplex [...] Used Date Smoking Tobacco: Every Day Cigarettes 1 10.7 Started: 1968; Last attempted to quit: 07/29/1979 Cigars Smokeless Tobacco: Never Tobacco Cessation:Ready to Q uit: Not Asked; Counseling Given: Not Answered Comments:Only smokes 1 cigar a day Alcohol Use Standard Drinks/Week Comments Yes 0 (1 standard drink = 0.6 oz pur e alcohol) one cocktail a night Sex and Gender Information Value Date Recorded Sex Assigned at Not on file Legal Sex Male 2:03 PM EST Gender Identity Not on file Sexual Orientation Not on file Obstetrics History Last Filed Vital Signs Vital Sign Reading Time Taken Comments Blood Pressure 120/70 09/30/2024 9:44 AM EST Pulse 90 09/30/2024 9:44 AM EST Temperature 36.8 ??C (98.2 ??F) 09/07/2024 2:39 PM ES T Respiratory Rate - - Oxygen Saturation 96% 09/30/2024 9:44 AM EST Inhaled Oxygen Concentration - - Weight 70.1 kg (154 lb 8 oz) 09/30/2024 9:44 AM EST Height 167.6 cm (5' 6 ) 09/30/2024 9:44 AM EST Body Mass Index 24.94 09/30/2024 9:44 AM EST Plan of Treatment Upcoming Encounters Date Type Department Care Team (Late st Contact Info) Description 11/03/2024 9:30 AM EDT Office Visit Adult Medicine [address] [address] Rosetta Kiser MD [address] [place] [address] 02/04/2025 10:10 AM EDT Office Visit [facility] [address] [place] [phone] Angel Christensen NP [address] [place] [address] [address] [place] [address] Health Maintenance Due Date Last Done Comments [...] Name Priority Date/Time Associated Diagnosis Comments XR ABDOMEN 1 VIEW Routine 10/06/2024 2:1 4 PM EDT CARDIAC HOLTER MONITOR (REPORT GENERATED IN HOUSE) Routine 09/30/2024 10:45 AM EST Palpitations XR SHOULDER 2+ VIEWS LEFT Routine 09/02/2024 2:15 PM EST Impingement syndrome of left shoulder COMPREHENSIVE METABOLIC PANEL Routine 06/23/2024 10:57 AM EST Preop examination LIPID PANEL Routine 04/24/2024 ABDOMINAL AORTIC ANEURYSM SCRREN Routine 03/02/2024 HEPATITIS C SCREENING Routine 01/08/2024 COLONOSCOPY Routine 10/05/2015 from Last 3 Months or Most Recently Relevant to Health Maintenance Results * XR Abdomen 1 View (10/06/2024 2:14 PM EDT) Anatomical Region Laterality Modality Body Radiographic Citlali ging us Historical Provider MD SABA XR PROCEDURES Final R esult * CARDIAC HOLTER MONITOR (REPORT GENERATED IN HOUSE) (09/30/2024 10:45 AM EST) Anatomical Region Laterality Modality Cardiac Diagnost ic Narrative 10/08/2024 9:[address] [facility] DEPARTMENT [address] [facility], [id number], [place] [address] TEL: FAX: Type of Test: 24 Hour Holter Monitor Date of Test: 09/30/2024 Ordering Provider: Angel Christensen NP Reason for Test: Palpitations Impression: 1: Normal Sinus Rhythm. 2: Rare PACs and one atrial pair. 3: Occasional PVCs. Two couplets and one episode of ventricular bigeminy. 4: No significant pauses, longest R-R was 1.0 second at 5:03 AM. 5: Diary returned with no symptoms noted. us Angle Christensen NP CV CARDIAC SERVICES PROCEDU RES Final Result * XR Shoulder 2+ Views Left (09/02/2024 [...] Signed Date: 09/02/2024 21:54 ET Workstation ID: [id number] Transcribed By: Self Edit Transcribed Date: 09/02/2024 [...] Signed Date: 09/02/2024 21:54 ET Workstation ID: [id number] Transcribed By: Self Edit Transcribed Date: 09/02/2024 21:53 ET Dax MELISSA IMG XR PROCEDURES Final Result * (ABNORMAL) Comprehensive metabolic panel (06/23/2024 10:57 AM EST) Sodium 140 133 - 145 mmol/L LAB CHEMISTRY METHOD 06/23/2024 1:[address] [facility] Potassium 3.9 3.5 - 5.5 mmol/L LAB CHEMISTRY METHOD 06/23/2024 1:[address] [facility] Chloride 104 96 - 110 mmol/L LAB CHEMISTRY METHOD 06/23/2024 1:[address] [facility] CO2 28 21 - 32 mmol/L LAB CHEMISTRY METHOD 06/23/2024 1:[address] [facility] Anion Gap 8 3 - 11 LAB CHEMISTRY METHOD 06/23/2024 1:[address] [facility] Glucose 84 70 - 100 mg/dL LAB CHEMISTRY METHOD 06/23/2024 1:[address] [facility] BUN 32(H) 5 - 25 mg/dL LAB CHEMISTRY METHOD 06/23/2024 1:[address] [facility] Creatinine 1.40(H) 0.70 - 1.30 mg/dL LAB CHEMISTRY METHOD 06/23/2024 1:[address] [facility] eGFR 54(L) >=60 mL/min/1. 73m2 LAB CHEMISTRY METHOD 06/23/2024 1:[address] [facility] Comment:Calculation based on the??Chronic Kidney Disease Epidemiology Collaboration (CKD-EPI) equation refit??without adjustment for race. BUN/Creatinine Ratio 22.9 LAB CHEMISTRY METHOD 06/23/2024 1:[address] [facility] Calcium 9.7 8.5 - 10.5 mg/dL LAB CHEMISTRY METHOD 06/23/2024 1:[address] [facility] AST (SGOT) 33 10 - 42 unit/L LAB CHEMISTRY METHOD 06/23/2024 1:[address] [facility] ALT (SGPT) 41 10 - 60 unit/L LAB CHEMISTRY METHOD 06/23/2024 1:[address] [facility] Alkaline Phosphatase 101 42 - 121 unit/L LAB CHEMISTRY METHOD 06/23/2024 1:[address] [facility] Total Protein 7.4 6.0 - 8.0 g/dL LAB CHEMISTRY METHOD 06/23/2024 1:[address] [facility] Albumin 3.9 3.2 - 5.0 g/dL LAB CHEMISTRY METHOD 06/23/2024 1:[address] [facility] Total Bilirubin 0.6 0.0 - 1.4 mg/dL LAB CHEMISTRY METHOD 06/23/2024 1:[address] [facility] Blood Venous blood specimen / Unknown Venipuncture / Unknown 06/23/2024 10:57 AM EST 06/23/2024 10:57 AM EST us Rosetta Kiser MD LAB BLOOD ORDERABL ES Final Result [facility] [address] [place] [address], * (ABNORMAL) Lipid panel (04/24/2024) LDL/HDL Ratio 3 0 - 4 Triglycerides 118 0 - 150 mg/dL Cholesterol 204(A) 0 - 200 mg/dL HDL 70 >=40 mg/dL LDL Cholesterol 111(A) 0 - 100 mg/dL Blood Venous blood specimen / Unknown Historical Provider LAB BLOOD ORDERABLES Ashley l Result * Abdominal Aortic Aneurysm Screen (03/02/2024) Abdominal Aortic Aneurysm (AAA) Screening abstracted Anatomical Region Laterality Modality Other [facility] Provider HEALTH MAINTENANCE Final Result * Hepatitis C Screening (01/08/2024) Hepatitis C Screening abstracted [facility] Provider HEALTH MAINTENANCE Final Result * Colonoscopy (10/05/2015) Colonoscopy no interpretation , abstracted Anatomical Region Laterality Modality Other [facility] Provider HEALTH MAINTENANCE Final Result from Last 3 Months or Most Recently Relevant to Health Maintenance Insurance MEDICARE [facility] Advance Directives Documents on File Type Date Recorded Patient Manager College Expl anation Health Care Decision (hx) 09/15/2019 [...] (hx) 09/11/2019 AD VERDIN DIRECTIVE Care Teams Student Financial Aid Manager Relationship Specialty Start Date End Date Rosetta Kiser MD [address] [place] [phone] PCP - General Internal Medicine 09/02/24
--- OUTSIDE RECORDS SUMMARY | 2024-10-14 16:35 | XMS_ITS | Clinical Summary ---
Author Organization [facility] Address [address] [address] Phone Care Team Providers Care Change Number Operator Name Role Phone Praveen Fournier PA-C Primary [...] total) in the evening. 120 tablet 11 4 06/04/20 25 Active calcitriol (ROCALTROL) 0.25 MCG [...] Care Team (Late st Contact Info) Description 12/03/2024 2:30 PM EDT Office Visit [facility] [address] [place] [address] Asim Lester MD [address] [facility] [address] [place] [address] Health Maintenance Due Date Last Done Comments Colorectal Cancer Screening: Annual FOBT 2001 Colorectal Cancer Screening: Colonoscopy 2001 Colorectal Cancer Screening: Sigmoidoscopy 2001 Hepatitis B Vaccine (1 of 3 - Risk 3-dose series) 2012 Pneumococcal Vaccine: 65+ Years Completed , 08/04/2018 Influenza Vaccine Completed 04/21/2024, , 05/15/2019, Additional history exists Insurance MEDICARE [facility] MEDICARE [facility] MEDICARE [facility] OPEN ACCESS ([id number]) Care Teams Change Number Operator Relationship Specialty Start Date End Date Praveen Fournier PA-C [address] [place] [id number] PCP - General Physician Electronic Drafter 06/04/24
--- OUTSIDE RECORDS SUMMARY | 2024-10-14 16:35 | XMS_ITS | Encounter Summary ---
Author Organization [facility] Address [address] [place] [address] Care Team Providers Care Brick Loader Name Role Phone Rosetta Kiser MD Primary Care Prov ider Reason for Visit * Reason Comments 24 Hour Holter Monitor * Cardiac Stress Testing (Routine) - Closed Specialty Diagnoses / Procedures Referred By Contac t Referred To Contact Cardiology Diagnoses Palpitations Procedures Cardiac holter monitor (<= 48 hours) VT ECG EXTERNAL UP TO 48 HOURS RECORDING VT ECG EXTERNAL < 48 HOURS CONTINUOUS RECORDING/STORAGE R&I BY A PHYS/QHP VT EXTERNAL ECG UP TO 48 HRS INCL RECORDING SCANNING ANLYS W REPORT Angel Christensen NP [address] [place] [address] Dr [address] [place] [address] Phone: tel: fax: [facility] Referral ID Status Reason Start Date Expiration Date Visits Re quested Visits Authorized [id number] Closed 09/30/2024 09/30/2025 1 1 Encounter Details Date Type Department Care Team (Late st Contact Info) Description 09/30/2024 8:00 AM EST Ancillary Procedure [facility] - [address] [place] [address] Palpitations Social History Tobacco Use Types Packs/Day Years Used Date Smoking Tobacco: Every Day Cigarettes 1 10.7 Started: 1968; Last attempted to quit: 07/29/1979 Cigars Smokeless Tobacco: Never Comments:Only smokes 1 cigar a day Alcohol Use Standard Drinks/Week Comments Yes 0 (1 standard drink = 0.6 oz pur e alcohol) one cocktail a night Sex and Gender Information Value Date Recorded Sex Assigned at Not on file Legal Sex Male 2:03 PM EST Gender Identity Not on file Sexual Orientation Not on file documented as of this encounter Plan of Treatment Upcoming Encounters Date Type Department Care Team (Late st Contact Info) Description 11/03/2024 9:30 AM EDT Office Visit Adult Medicine - [place] [address] [place] [address] Rosetta Kiser MD [address] [place] [address] 02/04/2025 10:10 AM EDT Office Visit [facility] Cardiology [facility] [address] [place] [address] Angel Christensen NP [address] [place] [address] [address] [place] [address] documented as of this encounter Procedures Procedure Name Priority Date/Time Associated Diagnosis Comments CARDIAC HOLTER MONITOR (REPORT GENERATED IN HOUSE) Routine 09/30/2024 10:45 AM EST Palpitations documented in this encounter Results * CARDIAC HOLTER MONITOR (REPORT GENERATED IN HOUSE) (09/30/2024 10:45 AM EST) Anatomical Region Laterality Modality Cardiac Diagnost ic Narrative 10/08/2024 9:54 AM EDT [facility] DIAGNOSTIC TESTING DEPARTMENT [address], [id number], [place] [address] TEL: FAX: Type of Test: 24 Hour [...] Diary returned with no symptoms noted. us Angel Christensen TROUBLE OPERATOR CV CARDIAC SERVICES PROCEDU RES Final Result documented in this encounter Visit Diagnoses Diagnosis Palpitations documented in this encounter Care Teams Brick Loader Relationship Specialty Start Date End Date Rosetta Kiser MD [address] [place] [phone] PCP - General Internal Medicine 09/02/24 documented as of this encounter
--- OUTSIDE RECORDS SUMMARY | 2024-10-14 16:35 | XMS_ITS ---
Author Organization [facility] [place] [address] Care Team Providers Care Crusher Wet Ground Mica Name Role Phone Rosetta Kiser MD Primary Care Prov ider Transitional Care Management Status:Ongoing (Active) Start date:09/23/2024 Enrollment date:09/25/2024 Enrollment reason:Identified using hospital discharge data Case Team Name Relationship Phone Hanna Alvarez RN Care Manager(Responsible S taff) Continued Care and Services Coordination
--- OUTSIDE RECORDS SUMMARY | 2024-10-14 16:35 | XMS_ITS | Encounter Summary ---
Author Organization [facility] Address [address] [place] [address] Care Team Providers Care Production Manufacturing Worker Name Role Phone Rosetta Kiser MD Primary Care Prov ider Reason for Visit * Reason Onset Date Comments Holter results and med changes 10/09/2024 Encounter Details Date Type Department Care Team (Late st Contact Info) Description 10/09/2024 Telephone [facility] - [facility] [address] [facility] [address] [place] [address] Zainab Pierce RN Holter results and med changes Social History Tobacco Use Types Packs/Day Years [...] on file documented as of this encounter Ordered Prescriptions Prescription Sig Dispense Quantity Refills Last Filled Start Date End Date carvediloL (COREG) 3.125 mg tablet Take 1 tablet (3.125 mg total) by mouth 2 (two) times a day with meals. 60 each 5 10/09/2024 documented in this encounter Progress Notes * Zainab Pierce RN - 10/09/2024 5:05 PM EDT See Patient Outreach encounter from today, 10/09/24 Per [facility], Please let him know holter was normal. No arrhythmias. Stop Amlodipine. Double Diltiazem to 240mg daily. Start Carvedilol 3.125mg twice daily. Spoke to Luis Enrique and informed him of the above message from [facility] regarding holter results and medication changes. He voiced understanding and agreeable with the plan. Updated med module. Carvedilol 3.125mg BID rx sent to confirmed preferred pharmacy. documented in this encounter Plan of Treatment Upcoming Encounters Date Type Department Care Team (Late st Contact Info) Description 11/03/2024 9:30 AM EDT Office Visit Adult Medicine [facility] [address] [place] [address] Rosetta Kiser MD [address] [place] [address] 02/04/2025 10:10 AM EDT Office Visit [facility] Cardiology [facility] [address] [place] [address] [place] [address] Angel Christensen NP [address] [place] [address] [address] [place] [address] documented as of this encounter Visit Diagnoses Not on filedocumented in this encounter Discontinued Medications Medication Sig Discontinue Reason Start Date End Da te amLODIPine (NORVASC) 10 mg tablet Take 1 Tablet by mouth daily for 180 days. Prescriber Discontinued 09/10/2023 10/09/2024 documented as of this encounter Care Teams Production Manufacturing Worker Relationship Specialty Start Date End Date Rosetta Kiser MD [address] [place] [address] PCP - General Internal Medicine 09/02/24 documented as of this encounter
--- OUTSIDE RECORDS SUMMARY | 2024-10-14 16:35 | XMS_ITS ---
Author Organization [facility] [address] [place] [address] Care Team Providers Care Exhibit Designer Name Role Phone Rosetta Kiser MD Primary Care Prov ider Chronic Care Management Status:Ongoing (Active) Start date:06/03/2024 Enrollment date:06/12/2024 Enrollment reason:Referred by Care Team Case Team Name Relationship Phone Hanna Alvarez RN Care Manager(Responsible S taff) Continued Care and Services Coordination
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
--- OUTSIDE RECORDS SUMMARY | 2024-10-14 16:35 | XMS_ITS | Encounter Summary ---
Author Organization [facility] Address [address] [place] [address] Care Team Providers Care Management Trainee Name Role Phone Rosetta Kiser MD Primary Care Prov ider Reason for Referral * Cardiac Stress Testing (Routine) - Closed Specialty Diagnoses / Procedures Referred By Emily dacosta Referred To Contact Cardiology Diagnoses Palpitations Procedures Cardiac holter monitor (<= 48 hours) AL ECG EXTERNAL UP TO 48 HOURS RECORDING AL ECG EXTERNAL < 48 HOURS CONTINUOUS RECORDING/STORAGE R&I BY A PHYS/QHP AL EXTERNAL ECG UP TO 48 HRS INCL RECORDING SCANNING ANLYS W REPORT Angel Christensen NP [address] [place] [address] [address] [place] [address] Phone: tel: fax: [facility] Referral ID Status Reason Start Date Expiration Date Visits Re quested Visits Authorized [id number] Closed 09/30/2024 09/30/2025 1 1 Reason for Visit * Reason Comments Hospital Follow-up * Consultation (Routine) - Closed Specialty Diagnoses / Procedures Referred By Emily dacosta Referred To Contact Cardiology Diagnoses Essential hypertension Rosetta Kiser MD [address] [place] [address] Phone: tel: fax: [facility] [address] [place] [address] [place] [address] Phone: tel: fax: Referral ID Status Reason Start Date Expiration Date V isits Requested Visits Authorized [id number] Closed Specialty Services Required 08/03/2024 08/03/2025 1 1 Encounter Details Date Type Department Care Team (Latest Contact Info) Description 09/30/2024 9:40 AM EST Office Visit [facility] [address] [place] [address] Angel Christensen NP [address] [place] [address] Dr [address] [place] [address] Hypercholesterolemia (Primary Dx); Essential hypertension; Palpitations; Other chest pain Social History Tobacco Use Types Packs/Day [...] Pulse 90 09/30/2024 9:44 AM EST Temperature - - Respiratory Rate - - Oxygen Saturation 96% 09/30/2024 9:44 AM EST Inhaled Oxygen Concentration - - Weight 70.1 kg (154 lb 8 oz) 09/30/2024 9:44 AM EST Height 167.6 cm (5' 6 ) 09/30/2024 9:44 AM EST Body Mass Index 24.94 09/30/2024 9:44 AM EST documented in this encounter Progress Notes * Angel Christensen NP - 09/30/2024 9:40 AM ESTAssociated Problem(s): Essential hypertension Longstanding history of hypertension with possible genetic component. Responding to antihypertensives although with several side effects and subsequent adjustments. He is currently on amlodipine and diltiazem which is not ideal, but the diltiazem is helping with his tachycardia. His blood pressure are still variable and ranging from 120s to 160s systolically. I will have him keep a stricter bloodpressure log over the next two weeks with twice daily readings at the same times. Depending on those readings and his holter results, I would likely switch diltiazem for carvedilol. Nephrology did recommend starting an ARB during the last hospitalization and we could consider this as well. Continuewith amlodipine, diltiazem and hydralazine. Orders: Ambulatory referral to Cardiology * Angel Christensen NP - 09/30/2024 9:40 AM ESTAssociated Problem(s): Hypercholesterolemia May 2024 - LDL 94. Continue with atorvastatin. * Angel Christensen NP - 09/30/2024 9:40 AM ESTAssociated Problem(s): Palpitations Has had longstanding elevated heart rates. No significant arrhythmias detected while hospitalized. Will get a 24hr holter monitor to assess rates and for arrhythmimas. Orders: Cardiac holter monitor (<= 48 hours); Future * Angel Christensen NP - 09/30/2024 9:40 AM ESTAssociated Problem(s): Other chest pain Work up inpatient suggestive of noncardiac etiology [...] No further cardiac testing regarding this symptom. * Angel Christensen NP - 09/30/2024 9:40 AM EST Images from the original note were not included. [facility] PRIMARY ATMOSPHERIC SCIENCES PROFESSOR: Shawn Stanley MD PCP: Rosetta Kiser MD HPI: I have obtained verbal consent from Luis Enrique Mcclelland prior to the recording. I have advised Luis Enrique Floyd that he may refuse the recording and require the recording to be turned off at any time during this encounter. History of Present Illness Mr. Mcclelland is a 73 year old male with past medical history of systemic hypertension, chronic kidney disease, dyslipidemia, chronic back pain, depression and family history significant for systemic hypertension. Today the patient presents for posthospitalization follow-up. He was hospitalized in April, May and June 2024 for multiple issues including uncontrolled blood pressures, chest pain and sure acute kidney insufficiency. He reports a history of hypertension, which has been challenging to manage. His blood pressure readings have fluctuated significantly, with a recent reading of 163/104 and a pulse rate of 99, taken approximately an hour post-medication. Subsequent readings have ranged from the 120s to 140s and 150s. He does not report any associated symptoms when his blood pressure decreases. He notes that Viagra appears to lower his blood pressure. His fianc??e, a nurse, observes that stress consistently elevates his blood pressure to potentially dangerous levels. In April, he was hospitalized due to uncontrolled hypertension, with systolic readings in the 200s and diastolic readings in the 110s. During this hospitalization, he was evaluated by a electronic communications technician and coater operator insulation board due to renal disease secondary to hypertension. In May, he was seen by Dr. Stanley for chest pain, which was determined to be non-cardiac in origin. An echocardiogram performed at that time wasreassuring. He has been hypertensive throughout his life. His fianc??e recalls that during his hospital stay, several medications were added to his regimen, resulting in hypotension with readings as low as 80s over 60s and 50s, causing him to be symptomatic. He has not used metoprolol or carvedilol. He occasionally takes clonidine for sleep, but its efficacy is uncertain. He has not worn a monitor. He occasionally experiences tachycardia upon waking, with heart rates exceeding 100 on several occasions. He typically takes his medications around 8 AM and 8 PM. His current medication regimen includes amlodipine, hydralazine, diltiazem, aspirin, and a cholesterol-lowering medication. He was previously on chlorthalidone, but it was discontinued due to hypotension. He was also on a clonidine patch, but this was discontinued in June. He has a history of tachycardia, which is unrelated to his current condition. His resting pulse rate is consistently elevated. He has been hospitalized multiple times recently due to his hypertension. He has not used metoprolol or carvedilol. He occasionally takes clonidine for sleep, but its efficacy is uncertain. He has not worn a monitor. He occasionally experiences tachycardia upon waking, with heart rates exceeding 100 on several occasions. He had back surgery a week ago, involving 3 disks, performed by Dr. Paz in [place]. He reportsno cardiac complications. No chest pain, palpitations, lightheadedness, presyncope or syncope. No orthopnea, paroxysmal nocturnal dyspnea, abdominal distention, cough or abrupt increases in weight. The patient reports adherence with their medications. FAMILY HISTORY His father at 43 from a major cardiac event. His brother has problems with his blood pressure. ACTIVE MEDICATIONS: Outpatient Medications Marked as Taking for the 09/30/24 encounter (Office Visit) with Angel Christensen NP Medication Sig Dispense Refill amLODIPine (NORVASC) 10 mg tablet Take 1 Tablet by mouth daily for 180 days. aspirin 81 mg EC tablet Take 1 tablet (81 mg total) by mouth 1 (one) time each day. atorvastatin (LIPITOR) 10 mg tablet TAKE 1 TABLET BY MOUTH EVERY DAY 90 tablet 1 buPROPion XL (WELLBUTRIN XL) 150 mg 24 hr tablet Take 1 tablet (150 mg total) by mouth 1 (one) timeeach day. Do not crush, chew, or split. buPROPion XL (WELLBUTRIN XL) 300 mg 24 hr tablet Take 1 tablet (300 mg total) by mouth 1 (one) timeeach day in the morning. desonide (DESOWEN) 0.05 % cream Apply topically [...] by mouth 1 (one) time each day. oxyCODONE (ROXICODONE) 10 mg immediate release tablet Take 1 tablet (10 mg total) by mouth every 8 (eight) hours if needed for severe pain. Max Daily Amount: 30 mg 84 tablet 0 PAST MEDICAL HISTORY: Patient Active Problem List Diagnosis Date Noted Date Diagnosed Palpitations 09/30/2024 Other chest pain 09/30/2024 Atrial enlargement, bilateral 05/18/2024 Tobacco use disorder 01/06/2019 LDCT 01/14. Repeat 12 mo. Abnormal MRI, lumbar spine 03/12/2017 Chronic low back pain 03/12/2017 Psoriasis 01/17/2016 Face. 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 Diverticulosis 08/03/2015 Depression 07/21/2015 Follows with psych for meds Essential hypertension 07/21/2015April & May - hospitalized initially with blood pressures in 200s/100s and started on medication, but came back with chest pain and elevated blood pressures April 2024 - echocardiogram showed preserved left ventricular systolic function LVEF 55 to 65% with no regional wall motion abnormalities, severe biatrial dilatation, mild aortic regurgitation, mild mitral regurgitation, mild tricuspid regurgitation with borderline elevated pulmonary artery systolic pressures History of alcohol abuse 07/21/2015 Hypercholesterolemia 07/21/2015 Resolved Problems No resolved problems to display. ALLERGIES: No Known Allergies SOCIAL HISTORY: Social History Tobacco Use Smoking status: Every Day Current packs/day: 0.00 Average packs/day: 1 pack/day for 10.7 years (10.7 ttl pk-yrs) Types: Cigars, Cigarettes Start date: 1966 Last attempt to quit: 07/29/1979 Years since quittin.2 Smokeless tobacco: Never Tobacco comments: Only smokes 1 cigar a day Substance Use Topics Alcohol use: Yes Comment: one cocktail a night PHYSICAL EXAM: Vitals: 09/30/24 0944 BP: 120/70 BP Location: Right arm Patient Position: Sitting BP Cuff Size: Adult Pulse: 90 SpO2: 96% Weight: 70.1 kg (154 lb 8 oz) Height: 1.676 m (66 ) Physical Exam Constitutional: General: He is not in acute distress. HENT: Head: Normocephalic and atraumatic. Right Ear: External ear normal. Left Ear: External ear normal. Nose: Nose normal. Mouth/Throat: Mouth: Mucous membranes are moist. Pharynx: No oropharyngeal exudate or posterior oropharyngeal erythema. Eyes: General: No scleral icterus. Extraocular Movements: Extraocular movements intact. Conjunctiva/sclera: Conjunctivae normal. Pupils: Pupils are equal, round, and reactive to light. Neck: Vascular: No carotid bruit, hepatojugular reflux or JVD. Cardiovascular: Rate and Rhythm: Normal rate and regular rhythm. Pulses: Normal pulses. Heart sounds: Normal heart sounds. No murmur heard. No friction rub. No gallop. Pulmonary: Effort: Pulmonary effort is normal. Breath sounds: Normal breath sounds. Chest: Chest wall: No tenderness. Abdominal: General: Bowel sounds are normal. There is no distension. Palpations: Abdomen is soft. Tenderness: There is no abdominal tenderness. Musculoskeletal: Cervical back: Neck supple. Right lower leg: No edema. Left lower leg: No edema. Skin: General: Skin is warm and dry. Neurological: General: No focal deficit present. Mental Status: He is alert and oriented to person, place, and time. Psychiatric: Mood and Affect: Mood normal. Behavior: Behavior normal. EKG: None completed today. TESTING: Labs available were reviewed. ASSESSMENT/PLAN: Assessment & Plan Essential hypertension Longstanding history of hypertension with possible genetic component. Responding to antihypertensives although with several side effects and subsequent adjustments. He is currently on amlodipine and diltiazem which is not ideal, but the diltiazem is helping with his tachycardia. His blood pressure are still variable and ranging from 120s to 160s systolically. I will have him keep a stricter bloodpressure log over the next two weeks with twice daily readings at the same times. Depending on those readings and his holter results, I would likely switch diltiazem for carvedilol. Nephrology did recommend starting an ARB during the last hospitalization and we could consider this as well. Continuewith amlodipine, diltiazem and hydralazine. Orders: Ambulatory referral to Cardiology Hypercholesterolemia May 2024 - LDL 94. Continue with atorvastatin. Palpitations Has had longstanding elevated heart rates. No significant arrhythmias detected while hospitalized. Will get a 24hr holter monitor to assess rates and for arrhythmimas. Orders: Cardiac holter monitor (<= 48 hours); Future Other chest pain Work up inpatient suggestive of noncardiac etiology [...] No further cardiac testing regarding this symptom. Thank you for allowing us to participate in the care of this patient. The patient will follow up infour months with myself, sooner PRN. As per AHA guidelines and previously established plan of care by Dr. Shawn Stanley MD, we discussed the following today: 1. Hypercholesterolemia 2. Essential hypertension 3. Palpitations 4. Other chest pain [facility] Cosigned by Ron Cullen MD at 10/07/2024 9:20 AM EDT documented in this encounter Plan of Treatment Upcoming Encounters Date Type Department Care Team (Late st Contact Info) Description 11/03/2024 9:30 AM EDT Office Visit Adult Medicine - [place] [address] [place] [address] Rosetta Kiser MD [address] [place] [address] 02/04/2025 10:10 AM EDT Office Visit [facility] [address] [place] [address] Angel Christensen NP [address] [place] [address] Dr [address] [place] [address] documented as of this encounter Results * CARDIAC HOLTER MONITOR (REPORT GENERATED IN HOUSE) (09/30/2024 10:45 AM EST) Anatomical Region Laterality Modality Cardiac Diagnost ic Narrative 10/08/2024 9:54 AM EDT [facility] DIAGNOSTIC TESTING DEPARTMENT [address] [id number], [place] [address] TEL: FAX: Type of Test: 24 Hour [...] 5: Diary returned with no symptoms noted. Angel Christensen NP [facility] PROCEDU RES Final Result documented in this encounter Visit Diagnoses Diagnosis Hypercholesterolemia- Primary Pure hypercholesterolemia Essential hypertension Unspecified essential hypertension Palpitations Other chest pain Palpitations documented in this encounter Discontinued Medications Medication Sig Discontinue Reason Start Date End Da te armodafiniL (NUVIGIL) 200 mg tablet Take 1 Tablet by mouth at bedtime as needed (sleep). Discontinued by another clinician 04/21/2024 09/30/2024 chlorthalidone (HYGROTON) 25 mg tablet Take 0.5 tablets (12.5 mg total) by mouth 1 (one) time each day. Discontinued by another clinician 06/23/2024 09/30/2024 cloNIDine (CATAPRES) 0.1 mg tablet Take 1 tablet (0.1 mg total) by mouth at bedtime. Discontinued by another clinician 08/26/2024 09/30/2024 dilTIAZem CD (CARDIZEM CD) 120 mg 24 hr capsule TAKE 1 CAPSULE BY MOUTH AT BEDTIME Discontinued by another clinician 08/28/2024 09/30/2024 documented as of this encounter Historical Medications * This list may reflect changes made after this encounter. buPROPion XL (WELLBUTRIN XL) 150 mg 24 hr tablet Take 1 tablet (150 mg total) by mouth 1 (one) time each day. Do not crush, chew, or split. added in this encounter Orders Outpatient Referral Count Last Ordered Date Fir st Ordered Date AMB REFERRAL TO CARDIOLOGY 1 09/30/2024 documented in this encounter Care Teams Management Trainee Relationship Specialty Start Date End Date Rosetta Kiser MD [address] [place] [address] PCP - General Internal Medicine 09/02/24 documented as of this encounter
--- OUTSIDE RECORDS SUMMARY | 2024-10-14 16:35 | XMS_ITS | Encounter Summary ---
Author Organization [facility] Address [address] [place] [address] Care Team Providers Care Pharmacist Apprentice Name Role Phone Rosetta Kiser MD Primary Care Prov ider Reason for Visit * Reason Onset Date Comments Appointment 09/03/2024 Encounter Details Date Type Department Care Team ([facility] Contact Info) Description 09/03/2024 Telephone Adult Medicine [facility] [address] [place] [phone] Rosetta Kiser MD [address] [place] [address] Appointment Social History Tobacco Use Types Packs/Day [...] go to emergency room right away. * Madonna Mullen - 09/03/2024 2:02 PM EST Luis Enrique Mcclelland returning call * Claire Martinez MA - [...] AM EDT Office Visit Adult Medicine - [place] [address] [place] [address] Rosetta Kiser MD [address] [place] [address] 02/04/2025 10:10 AM EDT Office Visit [facility] [address] [place] [address] Angel Christensen NP [address] [place] [address] [address] [place] [address] documented as of this encounter Visit Diagnoses Not on filedocumented in this encounter Care Teams Pharmacist Apprentice Relationship Specialty Start Date End Date Rosetta Kiser MD [address] [place] [address] PCP - General Internal Medicine 09/02/24 documented as of this encounter
== END 2024-10-14 14:34 | disposition home or self-care (01) ==
LOC: HO.HNS 14:12
PROVIDERS: PCP Internal Medicine; Visit Provider Physician Assistant
DX: M48.062 Spinal stenosis, lumbar region with neurogenic claudication (principal)
CPT/HCPCS: 99024

== ENCOUNTER → 2024-10-14 14:12 | Outpatient (BNVA) | payer MEDICARE, SELFPAY | PROVIDERS: PCP Internal Medicine; Visit Provider Physician Assistant | DX: Z47.89 Encounter for other orthopedic aftercare (principal); Z98.890 Other specified postprocedural states | CPT/HCPCS: 99212 ==

== ENCOUNTER 2024-10-26 11:04 | Outpatient (REF) | payer MEDICARE, SELFPAY ==
--- NOTE | ~2024-10-26 | XR_ITS ---
EXAMINATION: X-RAY LUMBAR SPINE 4 VIEWS. CLINICAL INFORMATION: Spinal stenosis, lumbar region with neurogenic claudication. TECHNIQUE: 4 views including flexion and extension. COMPARISON: May 20, 2024. FINDINGS: Status post posterior fusion L3 S1 with transpedicular screws bilaterally and status post intervertebral disc spacer placement at L3-4 L4-5 and L5-S1 level. There is marginal osteophyte formation and endplate sclerosis and decreased intervertebral disc height with vacuum phenomenon at T12-L1 and L1-2 levels. No gross malalignment. No malalignment. Flexion and/or extension position. Vascular calcifications, abdominal aorta. XR/XR lumbar spine 4V min IMPRESSION: Status post posterior fusion L3 S1 without gross instability. Spondylosis T12-L1 and L1-2. Electronically signed by: Kiran Campbell MD 10/27/2024 02:33 PM EDT
--- OUTSIDE RECORDS SUMMARY | 2024-10-26 12:57 | XMS_ITS | Encounter Summary ---
Author Organization [facility] Address [address] [place] [address] Care Team Providers Care Rig Builder Helper Name Role Phone Jose Alfredo Kiser MD Primary Care Provider +1 [phone] Encounter Details Date Type Department Care Team Description 03/25/2023 Coordinate Measuring Machine Technician Report Medical Records [address] [place] [address] Dax Chambers PA-C Social History Tobacco Use [...] week 10/17/2023 How often do you attend [facility] or episcopal services? Never 10/17/2023 Do you belong to [...] on filedocumented in this encounter Care Teams Rig Builder Helper Relationship Specialty Start Date End Date Jose Alfredo Kiser MD [facility] [place] [address] PCP - General Internal Medicine 06/25/22 documented as of this encounter
--- OUTSIDE RECORDS SUMMARY | 2024-10-26 12:57 | XMS_ITS | Encounter Summary ---
Author Organization [facility] Address [address] [place] [address] Care Team Providers Care Cooker Process Cheese Name Role Phone Jose Alfredo Kiser MD Primary Care Provider +1 [phone] Reason for Referral * EXTERNAL (Routine) - Authorized/Booked Specialty Diagnoses / Procedures Referred By Emily dacosta Referred To Contact Physiatry Procedures REFERRAL TO PHYSIATRY Jose Alfredo Kiser MD [address] [place] [address] [place] [address] [place] [address] Referral ID Status Reason Start Date Expiration Date V isits Requested Visits Authorized [id number] Authorized/B ooked 02/21/2023 05/28/2023 1 1 Encounter Details Date Type Department Care Team Description 02/21/2023 Orders Only Adult Medicine - [address] [phone] Jose Alfredo Kiser MD [address] [place], [place] Social History Tobacco Use Types Packs/Day Years Used Date Smoking Tobacco: Some Days Cigarettes 1 Started: 1968; Last attempted to quit: 07/29/1979 Cigars Smokeless Tobacco: Never Comments:one cigar per day Alcohol Use Standard Drinks/Week Comments Yes 0 (1 standard drink = 0.6 oz pure alcohol) prev abuse, alcholism, sober since 12/18/13; social alcophol use Alcohol Habits Answer Date [...] week 10/17/2023 How often do you attend [facility] or congregational services? Never 10/17/2023 Do you belong to any clubs o r organizations such as bahai groups, unions, fraternal or athletic groups, or [...] on filedocumented in this encounter Care Teams Cooker Process Cheese Relationship Specialty Start Date End Date Jose Alfredo Kiser MD [address] [place] [address] PCP - General Internal Medicine 06/25/22 documented as of this encounter
--- OUTSIDE RECORDS SUMMARY | 2024-10-26 12:57 | XMS_ITS | Clinical Summary ---
Author Organization [facility] Address [address] [place] [address] Care Team Providers Care Psychotherapist Name Role Phone Jose Alfredo Kiser MD Primary Care Provider +1 [phone] Allergies No known active allergies Medications Medication Sig Dispensed Refills Start Date End Date Status VITAMIN B COMPLEX-C Cap Take by mouth. 0 07/21/2015 Active ketoconazole (NIZORAL) 2 % cream APPLY TOPICALLY 2 TIMES DAILY. 30 g 0 10/08/2017 Active buPROPion (WELLBUTRIN XL) 300 MG 24 hr tablet Take 1 Tab by mouth every morning. 30 Tab 5 01/23/2018 Active buPROPion (WELLBUTRIN XL) 150 MG 24 hr tablet Take 1 Tab by mouth every morning. 30 Tab 5 01/23/2018 Active escitalopram (LEXAPRO) 20 MG tablet takea one tab daily 30 Tab 0 01/23/2018 Active ibuprofen (ADVIL,MOTRIN) 800 MG tablet TAKE 1 TABLET BY MOUTH EVERY 8 HOURS NEEDED FOR PAIN 60 Tab 0 02/13/2018 Active desonide (DESOWEN) 0.05 % cream Apply topically 2 times daily. 30 g 5 07/14/2018 Active [place]-3 Fatty Acids (FISH OIL OR) Take by mouth daily. 0 Active magnesium (MAGTAB) 84 MG (7MEQ) Tab CR TAKE 1 TABLET BY MOUTH TWICE A DAY FOR 10 DAYS 0 09/27/2023 Active atorvastatin (LIPITOR) 20 MG tablet Take 1 Tablet by mouth daily. 0 Active Magnesium Oxide -Mg Supplement 250 MG TabIndications:Abno rmal level of blood mineral Take 1 Tablet by mouth every evening. 90 Tablet 0 02/26/2024 Active diltiazem (Cardizem CD) 120 MG 24 hr capsuleIndications: Essential hypertension Take 1 Capsule by mouth at bedtime for 180 days. 30 Capsule 5 03/05/2024 Active docusate sodium (COLACE) 100 MG capsule TAKE 1 CAPSULE BY MOUTH TWICE A DAY 60 Capsule 4 03/12/2024 Active ferrous sulfate 325 (65 Fe) MG tablet TAKE 1 TABLET BY MOUTH TWICE A DAY 180 Tablet 1 04/07/2024 Active omeprazole (PRILOSEC) 20 MG capsule Take 1 Capsule by mouth daily. 90 Capsule 1 04/13/2024 Active Armodafinil 200 MG TabIndications:Esse ntial hypertension Take 1 Tablet by mouth at bedtime as needed (sleep). 30 Tablet 2 04/21/2024 Active potassium chloride (Klor-Con 10) 10 MEQ tablet Take 1 Tablet by mouth 2 times daily for 3 days. 6 Tablet 0 04/30/2024 Active oxyCODONE HCl ER 20 MG Tablet Extended Release 12 hour Abuse-Deterrent Take 1 Tablet by mouth 2 times daily. 28 Tablet 0 05/18/2024 Active amlodipine (NORVASC) 10 MG tablet Take 1 Tablet by mouth daily for 180 days. 30 Tablet 1 05/18/2024 11/14/2024 Active hydrALAZINE (APRESOLINE) 10 MG tablet Take 1 Tablet by mouth 3 times daily. 90 Tablet 1 05/18/2024 Active Active Problems Problem Noted Date Atrial enlargement, bilateral 05/18/2024 Tobacco use disorder 01/06/2019 Overview: LDCT 01/14. Repeat 12 mo. Abnormal MRI, lumbar spine 03/12/2017 Chronic low back pain 03/12/2017 Exposure to hepatitis C 07/10/2016 Overview: Hx hep B per pt. Colon cancer screening 07/02/2016 Overview: Colonoscopy neg 10/11. Repeat 10 yrs Psoriasis 01/17/2016 Overview: Face. ?seborrhea naltrexone therapy 10/05/2015 Overview: As of 2015, patient is currently on naltrexone treatment, do not administer opioids. History of colonic polyps 10/05/2015 Overview: Diminutive tubular adenoma 2009, negative colonoscopy 2015, next colonoscopy 2025. 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 Depression 07/21/2015 Overview: Follows with psych for meds Essential hypertension 07/21/2015 Hypercholesterolemia 07/21/2015 History of alcohol abuse 07/21/2015 Immunizations Name Administration Dates Next Due COVID-19 (Pfizer) 2020,10/17/2020 COVID-19 (Pfizer) Pt Reported 05/16/2023, 021 Covid-19 Bivalent (Pfizer) 04/12/2022 Influenza (> 6 Months) 05/15/2019 Influenza Flu (PT Reported) 05/21/2017, 6 Influenza Vaccine-preservati ve Free-quadrivalent 4 Years 05/21/2017,06/05/2016 Influenza Vaccine-quadrivale nt 4 Years Plus 05/15/2019 Influenza vaccine high dose age 65 and over 04/21/2024,03/21/2020,05/12/2018,05/14 Pneumoccoccal(Adult) Polysac charide PPSV23 03/21/2020 Pneumococcal Conjugate PCV-13 08/04/2018 Tdap 01/17/2016 Zostavax 01/13/2017 Family History Medical History Relation Name Comments Cholesterol Level Brother Hypertension Brother MT Father alcoholism Other Mother Unknown cause o f MT Paternal Grandfather MT Paternal Grandmother CA Breast Sister 1 half sister CA Lung Sister 2 haof sister Cholesterol Level Son Relation Name Status Comments Brother Alive Father Mother Paternal Grandfather Paternal Grandmother Sister 1 half sister Alive Sister 2 haof sister Son Alive Social History Tobacco Use Types Packs/Day Years Used Date Smoking Tobacco: Some Days Cigarettes 1 Started: 1968; Last attempted to quit: 07/29/1979 Cigars Smokeless Tobacco: Never Tobacco Cessation:Ready to Q uit: Not Asked; Counseling Given: Not Answered Comments:Quit cig. smoking in 1979.one cigar per day. Alcohol Use Standard [...] week 10/17/2023 How often do you attend [facility] or jew services? Never 10/17/2023 Do you [...] file Not on file Not on file Last Filed Vital Signs Vital Sign Reading Time Taken Comments Blood Pressure 138/78 04/21/2024 2:49 PM EDT Pulse 79 04/21/2024 2:49 PM EDT Temperature 36.9 ??C (98.4 ??F) 04/21/2024 2:49 PM ED T Respiratory Rate 16 02/26/2024 9:26 AM EDT Oxygen Saturation 99% 05/30/2022 9:46 AM EDT Inhaled Oxygen Concentration - - Weight 71.2 kg (157 lb) 05/18/2024 1:08 PM EDT Height 165.1 cm (5' 5 ) 05/18/2024 1:08 PM EDT Body Mass Index 26.13 05/18/2024 1:08 PM EDT Plan of Treatment Health Maintenance Due Date Last Done Comments SHINGLES VACCINE (2 of 3) 03/10/2017 01/13/2017 TOBACCO CHECK/ADVISE 02/15/2023 02/15/2021, 07/14/20 18 FALL RISK ASSESSMENT 05/30/2023 05/30/2022, 12/12/2020, 09/24/2019, Additional history exists Covid-19 Vaccine (2022-08 4 season) 2024 05/16/2023, 04/12/2022, 05/09/2021, Additional history exists BMI CHECK/ADVISE 07/29/2024 09/18/2022 (Com pleted), 05/30/2022, 12/12/2020, Additional history exists DEPRESSION SCREEN 10/16/2024 10/17/2023, (Completed) COLON CANCER SCREENING 10/04/2025 6, 01/16/2010, 11/04/2003 DTAP/TDAP/TD (2 - Td or Tdap) 01/16/2026 01/17/2016 CHOLESTEROL SCREENING 04/24/2029 04/24/2024 , 12/21/2020, 03/21/2020, Additional history exists PNEUMOCOCCAL VACCINE Completed 03/21/2020, 08/04/19 19 HEPATITIS C SCREENING Completed 01/03/2024, 016 ABDOMINAL AORTIC ANEURYSM (A AA) SCREENING Completed 03/02/2024, 01/23/2021, 08/11/2018 INFLUENZA Completed 04/21/2024, 02/27, 05/15/2019, Additional history exists Care Teams Psychotherapist Relationship Specialty Start Date End Date Jose Alfredo Kiser MD [address] [place] [address] PCP - General Internal Medicine 06/25/22
--- OUTSIDE RECORDS SUMMARY | 2024-10-26 12:58 | XMS_ITS | Encounter Summary ---
Author Organization [facility] Address [address] [place] [address] Care Team Providers Care Residential Energy Auditor Name Role Phone Nino Palencia MD Primary Care Provider +1 [phone] Jose Alfredo Kiser MD Primary Care Provider [phone] [phone] Encounter Details Date Type Department Care Team Description 02/02/2020 Crossbar Switch Adjuster Report Medical Records [address] [place] [address] Mike Deleon MD Social History Tobacco Use [...] week 10/17/2023 How often do you attend [facility] or denominational services? Never 10/17/2023 Do you belong to any clubs o r organizations such as hindu groups, unions, fraternal or athletic groups, or [...] on filedocumented in this encounter Care Teams Residential Energy Auditor Relationship Specialty Start Date End Date Nino Palencia MD [address] [place] [address] PCP - General Internal Medicine 07/07/15 06/24/22 Jose Alfredo Kiser MD [address] [place] [address] PCP - General Internal Medicine 06/25/22 documented as of this encounter
--- OUTSIDE RECORDS SUMMARY | 2024-10-26 12:58 | XMS_ITS | Encounter Summary ---
Author Organization [facility] Address [address] [place] [address] Care Team Providers Care Environmental Services Director Name Role Phone Jose Alfredo Kiser MD Primary Care Provider [phone] [phone] Encounter Details Date Type Department Care Team Description 05/19/2024 Orders Only Adult Medicine - [place] [address] [place] [address] Praveen Fournier PA-C [address] [place] [address] Lymphadenopathy (Primary Dx) Social History Tobacco Use Types Packs/Day Years [...] often do you attend chur ch or orthodoxy services? Never 10/17/2023 Do you belong to [...] Procedure Name Priority Date/Time Associated Diagnosis Comments US LMTD JOINT/OTH NONVASC XTR STRUX R-T W/IMG Routine 05/28/2024 7:48 AM EDT Lymphadenopathy documented in this encounter Results * US LMTD JOINT/OTH NONVASC XTR STRUX R-T W/IMG (05/28/2024 7:48 AM EDT) 05/28/2024 8:14 AM EDT Impressions [place] OTHER EXTERNAL - 05/28/2024 8:15 AM EDT IMPRESSION: ??Unremarkable exam. Narrative [place] OTHER EXTERNAL - 05/28/2024 8:15 AM EDT US LMTD JOINT/OTH NONVASC XTR STRUX R-T W/IMG SONO SOFT TISSUE HISTORY: Tender right lymphadenopathy-left upper pack and axilla. PRIORS: None. FINDINGS: ??Ultrasound evaluation of the palpable area indicated with patient in left axilla was performed. There is no cyst or solid mass. ??There is no lymphadenopathy. Procedure Note Maranda Arnold MD - 05/28/2024 US LMTD JOINT/OTH NONVASC XTR STRUX R-T W/IMG SONO SOFT TISSUE HISTORY: Tender right lymphadenopathy-left upper pack and axilla. PRIORS: None. FINDINGS: Ultrasound evaluation of the palpable area indicated withpatient in left axilla was performed. There is no cyst or solid mass. There is no lymphadenopathy. IMPRESSION IMPRESSION: Unremarkable exam. Praveen Fournier PA-C ULTRASOUND [place] OTHER EXTERNAL documented in this encounter Visit Diagnoses Diagnosis Lymphadenopathy- Primary Enlargement of lymph nodes documented in this encounter Care Teams Environmental Services Director Relationship Specialty Start Date End Date Jose Alfredo Kiser MD [address] [place] [address] PCP - General Internal Medicine 06/25/22 documented as of this encounter
--- OUTSIDE RECORDS SUMMARY | 2024-10-26 12:58 | XMS_ITS | Encounter Summary ---
Author Organization [facility] Address [address] [place] [address] Care Team Providers Care Government Guard Name Role Phone Nino Palencia MD Primary Care Provider +1 [phone] Jose Alfredo Kiser MD Primary Care Provider [phone] [phone] Encounter Details Date Type Department Care Team Description 06/04/2017 Die Barber Report Medical Records [address] [place] [address] Yasmani, MD Antonio Social History Tobacco Use Types Packs/Day Years [...] week 10/17/2023 How often do you attend [facility] or restorationist services? Never 10/17/2023 Do you belong to any clubs o r organizations such as yazidism groups, unions, fraternal or athletic groups, or [...] on filedocumented in this encounter Care Teams Government Guard Relationship Specialty Start Date End Date Nino Palencia MD [address] [place] [address] PCP - General Internal Medicine 07/07/15 06/24/22 Jose Alfredo Ksier MD [address] [place] [address] PCP - General Internal Medicine 06/25/22 documented as of this encounter
--- OUTSIDE RECORDS SUMMARY | 2024-10-26 12:58 | XMS_ITS | Encounter Summary ---
Author Organization [facility] Address [address] [place] [address] Care Team Providers Care Core Baker Name Role Phone Jose Alfredo Kiser MD Primary Care Provider [phone] [phone] Reason for Visit * Reason Onset Date Comments Information Needed 09/27/2023 Encounter Details Date Type Department Care Team Description 09/27/2023 Telephone Adult [facility] [address] [place] [address] Jose Alfredo Kiser MD [address] [place] [address] Information Needed Social History Tobacco Use Types Packs/Day Years [...] often do you attend chur ch or congregational services? Never 10/17/2023 Do you belong to any clubs o r organizations such as protestant groups, unions, fraternal or athletic groups, or [...] Encounter - Jose Alfredo Kiser MD - 09/27/2023 9:52 AM EST He does not need to appointments in 1 on the will be good * Telephone Encounter - Ciaran Wiggins RN - 09/27/2023 9:29 AM EST Pt advised that both could be reviewed , pt states that marcin told him he might need more blood work prior to visit because he was pos for giardia and diff , notes on PCP desk * Telephone Encounter - Chari Atwood - 09/27/2023 9:22 AM EST Pt returned call * Telephone Encounter - Ciaran Wiggins RN - 09/27/2023 9:05 AM EST Left message for pt to please return our call * Telephone Encounter - Chari Atwood - 09/27/2023 8:57 AM EST Pt would like to speak with nurse in regards to hospital follow up that is scheduled on 10/06 - pt just got out of the hospital for the second time and ?? If this requires a 2nd hospital f/u documented in this encounter Plan of Treatment Not on file documented as of this encounter Visit Diagnoses Not on filedocumented in this encounter Care Teams Core Baker Relationship Specialty Start Date End Date Jose Alfredo Kiser MD [address] [place] [address] PCP - General Internal Medicine 06/25/22 documented as of this encounter
--- OUTSIDE RECORDS SUMMARY | 2024-10-26 12:58 | XMS_ITS | Encounter Summary ---
Author Organization [facility] Address [address] [place] [address] Care Team Providers Care Life Skills Worker Name Role Phone Nino Palencia MD Primary Care Provider +1 [phone] Jose Alfredo Kiser MD Primary Care Provider +1 [phone] Encounter Details Date Type Department Care Team Description 08/14/2016 Release of Information Medical Records [address] [place] [address] Abstract, Provider Social History Tobacco Use Types [...] 10/17/2023 How often do you attend [facility] or buddhist services? Never 10/17/2023 Do you belong to any clubs o r organizations such as orthodox groups, unions, fraternal or athletic groups, or [...] on filedocumented in this encounter Care Teams Life Skills Worker Relationship Specialty Start Date End Date Nino Palencia MD [address] [place] [address] PCP - General Internal Medicine 07/07/15 06/24/22 Jose Alfredo Kiser MD [address] [place] [address] PCP - General Internal Medicine 06/25/22 documented as of this encounter
--- OUTSIDE RECORDS SUMMARY | 2024-10-26 12:58 | XMS_ITS | Encounter Summary ---
Author Organization [facility] Address [facility] [place] [address] Care Team Providers Care Plate Stacker Name Role Phone Jose Alfredo Kiser MD Primary Care Provider +1 [phone] Encounter Details Date Type Department Care Team Description 06/25/2023 Orders Only Medical Records [address] [place], [place] [address] [place] [address] Social History Tobacco Use Types Packs/Day Years [...] attend [facility] or restorationism services? Never 10/17/2023 Do you belong to [...] Name Priority Date/Time Associated Diagnosis Comments OUTSIDE CT Routine 05/31/2023 documented in this encounter Results * OUTSIDE CT (05/31/2023) Narrative Authorizing Provider Result [facility] documented in this encounter Visit Diagnoses Not on filedocumented in this encounter Care Teams Plate Stacker Relationship Specialty Start Date End Date Jose Alfredo Kiser MD [facility] [address] PCP - General Internal Medicine 06/25/22 documented as of this encounter
--- OUTSIDE RECORDS SUMMARY | 2024-10-26 12:58 | XMS_ITS | Encounter Summary ---
Author Organization [facility] Address [address] [place] [address] Care Team Providers Care Inspector Hairspring Truing Name Role Phone Nino Palencia MD Primary Care Provider +1- [phone] Jose Alfredo Kiser MD Primary Care Provider +1 [phone] Encounter Details Date Type Department Care Team Description 12/17/2017 Pt. Non Urgent Medical Question Adult Medicine - [address] [address] Tito Loja, PA Social History Tobacco Use [...] week 10/17/2023 How often do you attend [facility] or moravian services? Never 10/17/2023 Do you belong to [...] Progress Notes * Kayla Lilly L.P.N. - 12/17/2017 4:27 PM EDTFrom: Luis Enrique Mcclelland To: Tito Loja PA-C Sent: 12/17/2017 4:20 PM EDT Subject: [facility] Lung Cancer Screening Program Jaylen Ivey, Please forward my last notes from my last visit to [facility] at [phone] at [facility]. Ihave a 9:30 am appointment to qualify me for this program. I meet all the criteria that's needed, plus some, so please forward them any info they need. We can discuss this later, if needed. Thank you. documented in this encounter Plan of Treatment Not on file documented as of this encounter Visit Diagnoses Not on filedocumented in this encounter Care Teams Inspector Hairspring Truing Relationship Specialty Start Date End Date Nino Palencia MD [address] [place] [address] PCP - General Internal Medicine 07/07/15 06/24/22 Jose Alfredo Kiser MD [address] [place] [address] PCP - General Internal Medicine 06/25/22 documented as of this encounter
--- OUTSIDE RECORDS SUMMARY | 2024-10-26 12:58 | XMS_ITS | Encounter Summary ---
Author Organization [facility] Address [address] [place] [address] Care Team Providers Care Escalator Installer Name Role Phone Nino Palencia MD Primary Care Provider +1 [phone] Jose Alfredo Kiser MD Primary Care Provider +1 [phone] Encounter Details Date Type Department Care Team Description 09/04/2021 Real Estate Executive Assistant Report Medical Records [address] [place] [address] Damaris De Santiago NP Social History Tobacco Use Types Packs/Day Years [...] you attend [facility] or anabaptism services? Never 10/17/2023 Do you belong to any clubs o r organizations such as holiness groups, unions, fraternal or athletic groups, or [...] place to sleep or slept in a half-way (including now)? No 10/17/2023 Sex Assigned at Date Recorded Not on file Job Start Date Occupation Industry Not on file Not on file Not on file documented as of this encounter Plan of Treatment Not on file documented as of this encounter Visit Diagnoses Not on filedocumented in this encounter Care Teams Escalator Installer Relationship Specialty Start Date End Date Nino Palencia MD [address] [place] [address] PCP - General Internal Medicine 07/07/15 06/24/22 Jose Alfredo Kiser MD [address] [place] [address] PCP - General Internal Medicine 06/25/22 documented as of this encounter
--- OUTSIDE RECORDS SUMMARY | 2024-10-26 12:58 | XMS_ITS | Encounter Summary ---
Author Organization [facility] Address [address] [place] [address] Care Team Providers Care Weaver Tire Cord Name Role Phone Nino Palencia MD Primary Care Provider +1 [phone] Jose Alfredo Kiser MD Primary Care Provider +1 [phone] Encounter Details Date Type Department Care Team Description 04/02/2017 Release of Information Medical Records [address] [place] [address] Abstract, Provider Social History Tobacco Use Types [...] do you attend [facility] or synagogue services? Never 10/17/2023 Do you belong to any clubs o r organizations such as episcopalian groups, unions, fraternal or athletic groups, or [...] on filedocumented in this encounter Care Teams Weaver Tire Cord Relationship Specialty Start Date End Date Nino Palencia MD [address] [place] [address] PCP - General Internal Medicine 07/07/15 06/24/22 Jose Alfredo Kiser MD [address] [place] [address] PCP - General Internal Medicine 06/25/22 documented as of this encounter
--- OUTSIDE RECORDS SUMMARY | 2024-10-26 12:58 | XMS_ITS | Encounter Summary ---
Author Organization [facility] Address [address] [place] [address] Care Team Providers Care Minilab Operator Name Role Phone Jose Alfredo Kiser MD Primary Care Provider [phone] [phone] Encounter Details Date Type Department Care Team Description 02/21/2024 Pan Shaker Report Medical Records [address] [place] [address] Isaac Dupree DO Social History Tobacco Use Types Packs/Day Years [...] 10/17/2023 How often do you attend [facility] or zoroastrian services? Never 10/17/2023 Do you belong to [...] on filedocumented in this encounter Care Teams Minilab Operator Relationship Specialty Start Date End Date Jose Alfredo Kiser MD [facility] [place] [address] PCP - General Internal Medicine 06/25/22 documented as of this encounter
--- OUTSIDE RECORDS SUMMARY | 2024-10-26 12:58 | XMS_ITS | Encounter Summary ---
Author Organization [facility] Address [address] [place] [address] Care Team Providers Care It Security Consultant Name Role Phone Nino Palencia MD Primary Care Provider [phone] Jose Alfredo Kiser MD Primary Care Provider [phone] Encounter Details Date Type Department Care Team Description 03/26/2017 [facility] Medical Records [address] [place] [address] Abstract, Provider Social History Tobacco Use Types [...] week 10/17/2023 How often do you attend [facility] or judaism services? Never 10/17/2023 Do you belong to [...] on filedocumented in this encounter Care Teams It Security Consultant Relationship Specialty Start Date End Date Nino Palencia MD [address] [place] [address] PCP - General Internal Medicine 07/07/15 06/24/22 Jose Alfredo Kiser MD [address] [place] [address] PCP - General Internal Medicine 06/25/22 documented as of this encounter
--- OUTSIDE RECORDS SUMMARY | 2024-10-26 12:58 | XMS_ITS | Encounter Summary ---
Author Organization [facility] Address [address] [place] [address] Care Team Providers Care Ticket Taker Ferryboat Name Role Phone Nino Palencia MD Primary Care Provider [phone] Jose Alfredo Kiser MD Primary Care Provider [phone] Encounter Details Date Type Department Care Team Description 06/02/2020 Physician Aide Report Medical Records [address] [place] [address] Mike Arias MD Social History Tobacco Use [...] week 10/17/2023 How often do you attend [facility] or congregation services? Never 10/17/2023 Do you belong to any clubs o r organizations such as quaker groups, unions, fraternal or athletic groups, or [...] on filedocumented in this encounter Care Teams Ticket Taker Ferryboat Relationship Specialty Start Date End Date Nino Palencia MD [address] [place] [address] PCP - General Internal Medicine 07/07/15 06/24/22 Jose Alfredo Kiser MD [address] [place] [address] PCP - General Internal Medicine 06/25/22 documented as of this encounter
--- OUTSIDE RECORDS SUMMARY | 2024-10-26 12:58 | XMS_ITS | Encounter Summary ---
Author Organization [facility] Address [address] [place] [address] Care Team Providers Care Nipple Threader Name Role Phone Nino Palencia MD Primary Care Provider [phone] Jose Alfredo Kiser MD Primary Care Provider [phone] Reason for Visit * Reason Comments E-prescribe Rx Request Encounter Details Date Type Department Care Team Description 09/22/2021 Refill Adult Medicine - [place] [address] [place], [place] [phone] Nino Palencia MD [address] [place] [address] E-prescribe Rx Request Social History Tobacco Use [...] How often do you attend chur or moravian services? Never 10/17/2023 Do you belong to any clubs o r organizations such as christian groups, unions, fraternal or athletic groups, or [...] encounter Miscellaneous Notes * Telephone Encounter - Sandra Wooten M.A. - 09/26/2021 4:45 PM EST Ghanshyam - 01/16/21 Nov - 10/25/21 documented in this encounter Plan of Treatment Not on file documented as of this encounter Visit Diagnoses Not on filedocumented in this encounter Care Teams Nipple Threader Relationship Specialty Start Date End Date Nino Palencia MD [address] [place] [address] PCP - General Internal Medicine 07/07/15 06/24/22 Jose Alfredo Kiser MD [address] [place] [address] PCP - General Internal Medicine 06/25/22 documented as of this encounter
--- OUTSIDE RECORDS SUMMARY | 2024-10-26 12:58 | XMS_ITS | Encounter Summary ---
Author Organization [facility] Address [address] [place] [address] Care Team Providers Care Long Term Acute Care Registered Nurse Name Role Phone Jose Alfredo Kiser MD Primary Care Provider [phone] Encounter Details Date Type Department Care Team Description 04/30/2024 Orders Only Adult Medicine - [place] [address] [place] [address] Jose Alfredo Kiser MD [address] [place] [address] Social History Tobacco Use Types Packs/Day Years [...] often do you attend chur ch or evangelical services? Never 10/17/2023 Do you belong to [...] place to sleep or slept in a residential (including now)? No 10/17/2023 Sex Assigned at Date Recorded Not on file Job Start Date Occupation Industry Not on file Not on file Not on file documented as of this encounter Plan of Treatment Not on file documented as of this encounter Visit Diagnoses Not on filedocumented in this encounter Care Teams Long Term Acute Care Registered Nurse Relationship Specialty Start Date End Date Jose Alfredo Kiser MD [address] [place] [address] PCP - General Internal Medicine 06/25/22 documented as of this encounter
--- OUTSIDE RECORDS SUMMARY | 2024-10-26 12:58 | XMS_ITS | Encounter Summary ---
Author Organization [facility] Address [address] [place] [address] Care Team Providers Care Construction Laborer Name Role Phone Nino Palencia MD Primary Care Provider [phone] Jose Alfredo Kiser MD Primary Care Provider [phone] [phone] Encounter Details Date Type Department Care Team Description 03/13/2021 Orders Only Medical Records [address] [place] [address] Poonam Urbina MD [address] [place] [address] Social History Tobacco Use Types Packs/Day Years [...] any clubs o r organizations such as jain groups, unions, fraternal or athletic groups, or [...] have Coronavirus / COVID-19? No / Unsure 03/14/2021 2:32 PM EDT documented as of this encounter Progress Notes * Poonam Urbina MD - 03/13/2021 10:23 PM EDT Results reviewed. Benign pathology. Will discuss with patient at follow-up appointment. Poonam Urbina documented in this encounter Plan of Treatment Not on file documented as of this encounter Procedures Procedure Name Priority Date/Time Associated Diagnosis Comments OUTSIDE PATHOLOGY Routine 03/02/2021 documented in this encounter Results * OUTSIDE PATHOLOGY (03/02/2021) Poonam Urbina MD OUTSIDE LAB documented in this encounter Visit Diagnoses Not on filedocumented in this encounter Care Teams Construction Laborer Relationship Specialty Start Date End Date Nino Palencia MD [facility] [place] [address] PCP - General Internal Medicine 07/07/15 06/24/22 Jose Alfredo Kiser, [address] [place] [address] [facility] [address] PCP - General Internal Medicine 06/25/22 documented as of this encounter
--- OUTSIDE RECORDS SUMMARY | 2024-10-26 12:58 | XMS_ITS | Encounter Summary ---
Author Organization [facility] Address [address] [place] [address] Care Team Providers Care Polysomnographic Technologist Name Role Phone Nino Palencia MD Primary Care Provider [phone] Jose Alfredo Kiser MD Primary Care Provider [phone] [phone] Encounter Details Date Type Department Care Team Description 09/06/2016 Copyist Report Medical Records [address] [place] [address] Yobany Hernandez MD Social History Tobacco Use Types Packs/Day [...] How often do you attend [facility] or caodaism services? Never 10/17/2023 Do you belong to any clubs o r organizations such as congregational groups, unions, fraternal or athletic groups, or [...] on filedocumented in this encounter Care Teams Polysomnographic Technologist Relationship Specialty Start Date End Date Nino Palencia MD [address] [place] [address] PCP - General Internal Medicine 07/07/15 06/24/22 Jose Alfredo Kiser MD [address] [place] [address] PCP - General Internal Medicine 06/25/22 documented as of this encounter
== END 2024-10-26 11:05 | disposition home or self-care (01) ==
LOC: HO.HOSX 11:04
PROVIDERS: PCP Internal Medicine; Visit Provider Physician Assistant
DX: M48.062 Spinal stenosis, lumbar region with neurogenic claudication (principal); Z91.81 History of falling
CPT/HCPCS: 72110; 99212

== ENCOUNTER 2024-10-26 11:04 | Outpatient (AMB) | payer MEDICARE, SELFPAY ==
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
--- OUTSIDE RECORDS SUMMARY | 2024-10-26 12:40 | XMS_ITS | Encounter Summary ---
Author Organization [facility] Address [address] [place] [address] Care Team Providers Care Wood Tile Installation Helper Name Role Phone Jose Alfredo Kiser MD Primary Care Provider +1 [phone] Encounter Details Date Type Department Care Team Description 05/19/2024 Pt. Non Urgent Medic al Question Adult Medicine - [place] [address] [place] [address] Praveen Fournier PA-C [address] [place] [address] Social History Tobacco Use Types Packs/Day Years Used Date Smoking Tobacco: Some Days Cigarettes 1 Started: 1968; Last attempted to quit: 07/29/1979 Cigars Smokeless Tobacco: Never Comments:Quit cig. smoking i n 1979.one cigar per day. Alcohol Use Standard Drinks/Week Comments Yes 0 (1 standard drink = 0.6 oz pure alcohol) prev abuse, alcholism, sober since 07/15/13; social alcophol use Alcohol Habits Answer Date Recorded How often do you have a drin k containing alcohol? Never 10/17/2023 How many drinks containing a lcohol do you have on a typical day when you are drinking? Patient does not drink 10/17/2023 How often do you have six or more drinks on one occasion? Never 10/17/2023 Social Isolation Answer Date Recorded In a typical week, how many times do you talk on the phone with family, friends, or neighbors? More than three times a week 10/17/2023 How often do you get togethe r with friends or relatives? More than three times a week 10/17/2023 How often do you attend chur ch or scientology services? Never 10/17/2023 Do you belong to any clubs o r organizations such as buddhism groups, unions, fraternal or athletic groups, or school groups? No 10/17/2023 How often do you attend meet ings of the clubs or organizations you belong to? Never 10/17/2023 Are you now , , , , never or living with a partner? 10/17/2023 Physical Activity Answer Date Recorded On average, how many days pe r week do you engage in moderate to strenuous exercise (like walking fast, running, jogging, dancing, swimming, biking, or other activities that cause a light or heavy sweat)? 4 days 10/17/2023 On average, how many minutes do you engage in exercise at this level? 40 min 10/17/2023 Stress Answer Date Recorded Do you feel stress - tense, restless, nervous, or anxious, or unable to sleep at night because your mind is troubled all the time - these days? Not at all 10/17/2023 Financial Resource Strain Answer Date R ecorded How hard is it for you to pa y for the very basics like food, housing, medical care, and heating? Not hard at all 10/17/2023 Intimate Partner Violence Answer Date R ecorded Within the last year, have y ou been afraid of your partner or ex-partner? No 10/17/2023 Within the last year, have y ou been humiliated or emotionally abused in other ways by your partner or ex-partner? No Within the last year, have y ou been kicked, hit, slapped, or otherwise physically hurt by your partner or ex-partner? No 10/17/2023 Within the last year, have y ou been raped or forced to have any kind of sexual activity by your partner or ex-partner? No 10/17/2023 Food Insecurity Answer Date Recorded Within the past 12 months, y ou worried that your food would run out before you got money to buy more. Never true 10/17/2023 Within the past 12 months, t he food you bought just didn't last and you didn't have money to get more. Never true 10/17/2023 Transportation Needs Answer Date Record ed In the past 12 months, has l ack of transportation kept you from medical appointments or from getting medications? No 09/27 In the past 12 months, has l ack of transportation kept you from meetings, work, or getting things needed for daily living? No 10/17/2023 Housing Stability Answer Date Recorded In the last 12 months, was t here a time when you were not able to pay the mortgage or rent on time? No 10/17/2023 In the last 12 months, how many places have you lived? 1 10/17/2023 In the last 12 months, was t here a time when you did not have a steady place to sleep or slept in a long term (including now)? No 10/17/2023 Sex Assigned at Date Recorded Not on file Job Start Date Occupation Industry Not on file Not on file Not on file documented as of this encounter Miscellaneous Notes * Telephone Encounter - Damaris Hart L.P.N. - 05/19/2024 4:57 PM EDT From: Pippa Mcclelland To: Kody Fournier Sent: 05/19/2024 4:40 PM EDT Subject: concern over LAB RESULTS SALOME AFTERNOONLYDIA THIS IS LEOBARDO. 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 HIS SED RATE IS ALSO HIGH IN ITIALLY LAST VISIT TO HOSPITAL THAT WAS MY MAIN CONCERN. THEY NEVER CHECKED IT OUT HE PRESENTED WITH SWELLING , HOT TO THE TOUCH PAIN IT RAN ITS COURSE BUT HIS ENTIRE LEFT ARM FROM SHOULDER DOWN WAS VERY SWOLLENAND RED THEY TREATED HIM W ANTIBIOTICS TODAY PIPPA FELT TWO NEW LUMPS NO PAIN TO THE TOUCH THO.... BUT PAIN RUNNING DOWN HIS ARM I REALIZE HIS ELEVATED LABS COULD ALL RELATED TO KIDNE Y DISEASE BUT I AM STILL CONCERNED WE HAVE BEEN TRYING TO REACH YOUR OFFICE ALL DAY ON HOLD ENTIRE TIME COULD YOU PLEASE GET IN TOUCH W PIPPA SOON POSSIBLE. THANK YOU VERY MUCH LEOBARDO [facility] HOME NO. [phone] CELL [phone] documented in this encounter Plan of Treatment Not on file documented as of this encounter Visit Diagnoses Not on filedocumented in this encounter Care Teams Wood Tile Installation Helper Relationship Specialty Start Date End Date Jose Alfredo Kiser MD [address] [place] [address] PCP - General Internal Medicine 06/25/22 documented as of this encounter
--- OUTSIDE RECORDS SUMMARY | 2024-10-26 12:40 | XMS_ITS | Encounter Summary ---
Author Organization [facility] Address [address] [place] [address] Care Team Providers Care Jewel Bearing Facer Name Role Phone Jose Alfredo Kiser MD Primary Care Provider [phone] [phone] Encounter Details Date Type Department Care Team Description 05/26/2024 Chinchilla Farmer Report Medical Records [address] [place] [address] Dax Chambers PA-C Social History Tobacco Use Types Packs/Day Years [...] week 10/17/2023 How often do you attend [facility] or christianity services? Never 10/17/2023 Do you belong to any clubs o r organizations such as hinduism groups, unions, fraternal or athletic groups, or [...] place to sleep or slept in a mcfp (including now)? No 10/17/2023 Sex Assigned at Date Recorded Not on file Job Start Date Occupation Industry Not on file Not on file Not on file documented as of this encounter Plan of Treatment Not on file documented as of this encounter Visit Diagnoses Not on filedocumented in this encounter Care Teams Jewel Bearing Facer Relationship Specialty Start Date End Date Jose Alfredo Kiser MD [facility] [place] [address] PCP - General Internal Medicine 06/25/22 documented as of this encounter
--- OUTSIDE RECORDS SUMMARY | 2024-10-26 12:40 | XMS_ITS | Encounter Summary ---
Author Organization [facility] Address [address] [place] [address] Care Team Providers Care Hospital Chief Financial Officer Name Role Phone Jose Alfredo Kiser MD Primary Care Provider [phone] [phone] Encounter Details Date Type Department Care Team Description 08/16/2022 Franchise Sales Director Report Medical Records [address] [place] [address] Mike Arias MD Social History Tobacco Use Types Packs/Day Years Used Date Smoking Tobacco: Some Days Cigarettes 1 Started: 1968; Last attempted to quit: 07/29/1979 Cigars Smokeless Tobacco: Never Comments:one cigar per day Alcohol Use Standard Drinks/Week Comments Yes [...] week 10/17/2023 How often do you attend [facility] or baptism services? Never 10/17/2023 Do you belong to any clubs o r organizations such as orthodoxy groups, unions, fraternal or athletic groups, or [...] place to sleep or slept in a correction (including now)? No 10/17/2023 Sex Assigned at Date Recorded Not on file Job Start Date Occupation Industry Not on file Not on file Not on file documented as of this encounter Plan of Treatment Not on file documented as of this encounter Visit Diagnoses Not on filedocumented in this encounter Care Teams Hospital Chief Financial Officer Relationship Specialty Start Date End Date Jose Alfredo Kiser MD [facility] [place] [address] PCP - General Internal Medicine 06/25/22 documented as of this encounter
--- OUTSIDE RECORDS SUMMARY | 2024-10-26 12:40 | XMS_ITS | Encounter Summary ---
Author Organization [facility] Address [address] [place] [address] Care Team Providers Care Administrative Secretary Name Role Phone Jose Alfredo Kiser MD Primary Care Provider [phone] [phone] Reason for Visit * Reason Comments E-prescribe Rx Request Encounter Details Date Type Department Care Team Description 01/11/2023 Refill Adult Medicine - [place] [address] [place] [address] Praveen Fournier PA-C [address] [place] [address] E-prescribe Rx Request Social History Tobacco Use Types Packs/Day Years [...] often do you attend chur ch or baptist services? Never 10/17/2023 Do you belong to any clubs o r organizations such as rastafari groups, unions, fraternal or athletic groups, or [...] place to sleep or slept in a group home (including now)? No 10/17/2023 Sex Assigned at Date Recorded Not on file Job Start Date Occupation Industry Not on file Not on file Not on file documented as of this encounter Miscellaneous Notes * Telephone Encounter - Pat Valadezisaías - 01/11/2023 11:32 AM EDT Patient would like script to be: E-PRESCRIBED/FAXED TO PHARMACY WHEN WAS THE PATIENT'S LAST APPOINTMENT IN ADULT MEDICINE? 09/18/2022 WHEN WAS THE LAST TIME THE PATIENT SAW THEIR PCP? Does patient have an upcoming appointment? Yes 02/18/2023 (THE MEDICATION REQUESTED IS ON THE MED LIST ABOVE) All of the medications requested were on the CURRENT MEDS list Did you check the Pharmacy information above?: YES Patient wants: 90 -day supply Is this a mail order prescription request ? NO If the refill is from a FAXED refill request what is the RX # listed on the fax? N/A Patients current insurance carrier is: [place] / Plan[place] / Product Type: MEDICARE [id number] documented in this encounter Plan of Treatment Not on file documented as of this encounter Visit Diagnoses Not on filedocumented in this encounter Care Teams Administrative Secretary Relationship Specialty Start Date End Date Jose Alfredo Kiser MD [address] [place] [address] PCP - General Internal Medicine 06/25/22 documented as of this encounter
--- OUTSIDE RECORDS SUMMARY | 2024-10-26 12:40 | XMS_ITS | Encounter Summary ---
Author Organization [facility] Address [address] [place] [address] Care Team Providers Care Rural Electrification Engineer Name Role Phone Jose Alfredo Kiser MD Primary Care Provider [phone] [phone] Encounter Details Date Type Department Care Team Description 03/12/2023 Horse Show Judge Report Medical Records [address] [place] [address] Mike Arias MD Social History Tobacco Use [...] week 10/17/2023 How often do you attend [facility] or yazidi services? Never 10/17/2023 Do you belong to any clubs o r organizations such as temple groups, unions, fraternal or athletic groups, or [...] file Not on file Not on file COVID-19 Exposure Response Date Recorded In the last 10 days, have yo u been in contact with someone who was confirmed or suspected to have Coronavirus/COVID-19? No / Unsure 02/18/2023 3:29 PM EDT documented as of this encounter Plan of Treatment Not on file documented as of this encounter Visit Diagnoses Not on filedocumented in this encounter Care Teams Rural Electrification Engineer Relationship Specialty Start Date End Date Jose Alfredo Kiser MD [address] [place] [address] PCP - General Internal Medicine 06/25/22 documented as of this encounter
--- OUTSIDE RECORDS SUMMARY | 2024-10-26 12:40 | XMS_ITS | Encounter Summary ---
Author Organization [facility] Address [facility] [place] [address] Care Team Providers Care Tourist Cabin Keeper Name Role Phone Jose Alfredo Kiser MD Primary Care Provider [phone] [phone] Reason for Visit * Reason Comments E-prescribe Rx Request Encounter Details Date Type Department Care Team Description 09/06/2022 Refill Adult Medicine - [place] [address] [place] [address] Lauren Mendieta NP [address] [place] [address] E-prescribe Rx Request Social History Tobacco Use [...] often do you attend chur ch or sikhism services? Never 10/17/2023 Do you belong to any clubs o r organizations such as latter-day groups, unions, fraternal or athletic groups, or [...] place to sleep or slept in a snf (including now)? No 10/17/2023 Sex Assigned at Date Recorded Not on file Job Start Date Occupation Industry Not on file Not on file Not on file documented as of this encounter Miscellaneous Notes * Telephone Encounter - Rosetta Tavarez M.A. - 09/10/2022 3:13 PM EST Medication request(s) pended for review Last appt- 06/25/22 Next appt- 09/18/22 Last appt w/ PCP- same as above Lab Results Component Value Date CHOL 222 12/21/2020 LDL 89 12/21/2020 HDL 79 12/21/2020 TRIG 271 12/21/2020 documented in this encounter Plan of Treatment Not on file documented as of this encounter Visit Diagnoses Not on filedocumented in this encounter Care Teams Tourist Cabin Keeper Relationship Specialty Start Date End Date Jose Alfredo Kiser MD [address] [place] [place] [address] PCP - General Internal Medicine 06/25/22 documented as of this encounter
--- OUTSIDE RECORDS SUMMARY | 2024-10-26 12:40 | XMS_ITS | Encounter Summary ---
Author Organization [facility] Address [address] [place] [address] Care Team Providers Care House Cleaner Supervisor Name Role Phone Jose Alfredo Kiser MD Primary Care Provider [phone] [phone] Encounter Details Date Type Department Care Team Description 09/11/2022 Pole Shaver Report Medical Records [address] [place] [address] Mike Arias MD Social History Tobacco Use [...] week 10/17/2023 How often do you attend [facility] or protestant services? Never 10/17/2023 Do you belong to any clubs o r organizations such as zoroastrianism groups, unions, fraternal or athletic groups, or [...] place to sleep or slept in a nursing home (including now)? No 10/17/2023 Sex Assigned at Date Recorded Not on file Job Start Date Occupation Industry Not on file Not on file Not on file documented as of this encounter Plan of Treatment Not on file documented as of this encounter Visit Diagnoses Not on filedocumented in this encounter Care Teams House Cleaner Supervisor Relationship Specialty Start Date End Date Jose Alfredo Kiser MD [facility] [place] [address] PCP - General Internal Medicine 06/25/22 documented as of this encounter
--- OUTSIDE RECORDS SUMMARY | 2024-10-26 12:40 | XMS_ITS | Encounter Summary ---
Author Organization [facility] Address [address] [place] [address] Care Team Providers Care Cracking And Fanning Machine Operator Name Role Phone Jose Alfredo Kiser MD Primary Care Provider [phone] [phone] Reason for Visit * Reason Onset Date Comments TEST RESULTS 02/20/2023 Encounter Details Date Type Department Care Team Description 02/20/2023 Telephone Adult Medicine - [place] [address] [place] [address] Jose Alfredo Kiser MD [address] [place] [address] TEST RESULTS Social History Tobacco Use Types Packs/Day Years [...] often do you attend chur ch or zoroastrianism services? Never 10/17/2023 Do you belong to any clubs o r organizations such as yazdanism groups, unions, fraternal or athletic groups, or [...] place to sleep or slept in a chcf (including now)? No 10/17/2023 Sex Assigned at [...] PM EDT documented as of this encounter Miscellaneous Notes * Telephone Encounter - Coco Adler L.P.N. - 02/20/2023 4:39 PM EDT Pt agrees to physiatry referral Asking what they might do for him? [phone] (home) Currently at this number * Telephone Encounter - Lay Torrez - 02/20/2023 4:28 PM EDT Patient reached out stating Dr. Francis called them-No notation of this- Would like a call back documented in this encounter Plan of Treatment Not on file documented as of this encounter Visit Diagnoses Not on filedocumented in this encounter Care Teams Cracking And Fanning Machine Operator Relationship Specialty Start Date End Date Jose Alfredo Kiser, [address] [place] [address] [place] [address] PCP - General Internal Medicine 06/25/22 documented as of this encounter
--- OUTSIDE RECORDS SUMMARY | 2024-10-26 12:41 | XMS_ITS | Encounter Summary ---
Author Organization [facility] Address [address] [place] [address] Care Team Providers Care Occupational Health Physiotherapist Name Role Phone Nino Palencia MD Primary Care Provider [phone] Jose Alfredo Kiser MD Primary Care Provider [phone] [phone] Encounter Details Date Type Department Care Team Description 03/18/2017 Pt. Non Urgent Medical Question Adult Medicine - [address] [address] Tito Loja, [place] Social History Tobacco Use Types Packs/Day Years Used Date Smoking Tobacco: Some Days Cigarettes 1 Started: 1968; Last attempted to quit: 07/29/1979 Cigars Smokeless Tobacco: Never Alcohol Use Standard Drinks/Week Comments No 0 (1 standard drink = 0.6 oz pure alcohol) prev abuse, alcholism, sober since 07/15/13 Alcohol Habits Answer Date Recorded How often [...] week 10/17/2023 How often do you attend [facility] or orthodox services? Never 10/17/2023 Do you belong to any clubs o r organizations such as jainism groups, unions, fraternal or athletic groups, or [...] place to sleep or slept in a care home (including now)? No 10/17/2023 Sex Assigned at Date Recorded Not on file Job Start Date Occupation Industry Not on file Not on file Not on file documented as of this encounter Progress Notes * Kayla Lilly L.P.N. - 03/19/2017 8:37 AM EDTFrom: Luis Enrique Mcclelland To: Tito Loja PA-C Sent: 03/18/2017 7:26 PM EDT Subject: back specialist referral Carmen Ivey, I believe we discussed getting me a referral for a back surgeon of whom we discussed.I don't recallhis name, but he is a very well known back surgeon [place]. Best regards, VICKI documented in this encounter Plan of Treatment Not on file documented as of this encounter Visit Diagnoses Not on filedocumented in this encounter Care Teams Occupational Health Physiotherapist Relationship Specialty Start Date End Date Nino Palencia MD [address] [place] [address] PCP - General Internal Medicine 07/07/15 06/24/22 Jose Alfredo Kiser MD [address] [place] [address] PCP - General Internal Medicine 06/25/22 documented as of this encounter
--- OUTSIDE RECORDS SUMMARY | 2024-10-26 12:41 | XMS_ITS | Encounter Summary ---
Author Organization [facility] Address [address] [place] [address] Care Team Providers Care Gear Hobber Name Role Phone Nino Palencia MD Primary Care Provider +1 [phone] Jose Alfredo Kiser MD Primary Care Provider [phone] [phone] Encounter Details Date Type Department Care Team Description 09/15/2020 Patient Registration Representative Report Medical Records [address] [place] [address] Mike Deleon MD Social History Tobacco Use Types Packs/Day Years Used Date Smoking Tobacco: Some Days Cigarettes 1 Started: 1966; Last attempted to quit: 07/29/1979 Cigars Smokeless Tobacco: Never Comments:one cigar per day Alcohol Use Standard Drinks/Week Comments No 0 [...] week 10/17/2023 How often do you attend [facility] or yazdanism services? Never 10/17/2023 Do you belong to any clubs o r organizations such as sabianism groups, unions, fraternal or athletic groups, or [...] place to sleep or slept in a detention (including now)? No 10/17/2023 Sex Assigned at Date Recorded Not on file Job Start Date Occupation Industry Not on file Not on file Not on file documented as of this encounter Plan of Treatment Not on file documented as of this encounter Visit Diagnoses Not on filedocumented in this encounter Care Teams Gear Hobber Relationship Specialty Start Date End Date Nino Palencia MD [address] [place] [address] PCP - General Internal Medicine 07/07/15 06/24/22 Jose Alfredo Kiser MD [address] [place] [address] PCP - General Internal Medicine 06/25/22 documented as of this encounter
--- OUTSIDE RECORDS SUMMARY | 2024-10-26 12:41 | XMS_ITS | Encounter Summary ---
Author Organization [facility] Address [address] [place] [address] Care Team Providers Care Vp Corporate Partnerships Name Role Phone Nino Palencia MD Primary Care Provider +1 [phone] Jose Alfredo Kiser MD Primary Care Provider [phone] [phone] Encounter Details Date Type Department Care Team Description 09/11/2019 [facility] Medical Records [address] [place] [address] Mike Arias MD Social History Tobacco Use [...] often do you attend chur ch or scientologist services? Never 10/17/2023 Do you belong to [...] place to sleep or slept in a long-term (including now)? No 10/17/2023 Sex Assigned at Date Recorded Not on file Job Start Date Occupation Industry Not on file Not on file Not on file documented as of this encounter Plan of Treatment Not on file documented as of this encounter Visit Diagnoses Not on filedocumented in this encounter Care Teams Vp Corporate Partnerships Relationship Specialty Start Date End Date Nino Palencia MD [address] [place] [address] PCP - General Internal Medicine 07/07/15 06/24/22 Jose Alfredo Kiser MD [address] [place] [address] PCP - General Internal Medicine 06/25/22 documented as of this encounter
--- OUTSIDE RECORDS SUMMARY | 2024-10-26 12:41 | XMS_ITS | Encounter Summary ---
Author Organization [facility] Address [address] [place] [address] Care Team Providers Care Manager Salt Name Role Phone Nino Palencia MD Primary Care Provider +1 [phone] Jose Alfredo Kiser MD Primary Care Provider [phone] [phone] Encounter Details Date Type Department Care Team Description 01/25/2021 Pt. Referral Request [address] [address] [place] Social History Tobacco Use Types Packs/Day Years [...] often do you attend chur ch or christianity services? Never 10/17/2023 Do you belong to any clubs o r organizations such as mandaen groups, unions, fraternal or athletic groups, or [...] place to sleep or slept in a jail (including now)? No 10/17/2023 Sex Assigned at Date Recorded Not on file Job Start Date Occupation Industry Not on file Not on file Not on file COVID-19 Exposure Response Date Recorded In the last month, have you been in contact with someone who was confirmed or suspected to have Coronavirus / COVID-19? Yes 01/23/2021 8:35 AM EDT documented as of this encounter Plan of Treatment Not on file documented as of this encounter Visit Diagnoses Not on filedocumented in this encounter Care Teams Manager Salt Relationship Specialty Start Date End Date Nino Palencia MD [address] [place] [address] PCP - General Internal Medicine 07/07/15 06/24/22 Jose Alfredo Kiser MD [address] [place] [address] PCP - General Internal Medicine 06/25/22 documented as of this encounter
--- OUTSIDE RECORDS SUMMARY | 2024-10-26 12:41 | XMS_ITS | Encounter Summary ---
Author Organization [facility] Address [address] [place] [address] Care Team Providers Care Welt Drawer Name Role Phone Jose Alfredo Kiser MD Primary Care Provider [phone] [phone] Encounter Details Date Type Department Care Team Description 04/10/2024 Refill Adult Medicine - [place] [address] [place] [address] Jose Alfredo Kiser MD [address] [place] [address] Social History Tobacco Use Types Packs/Day Years [...] often do you attend chur ch or voodoo services? Never 10/17/2023 Do you belong to any clubs o r organizations such as rastafarian groups, unions, fraternal or athletic groups, or [...] place to sleep or slept in a intermediate (including now)? No 10/17/2023 Sex Assigned at Date Recorded Not on file Job Start Date Occupation Industry Not on file Not on file Not on file documented as of this encounter Miscellaneous Notes * Telephone Encounter - Jose Alfredo Kiser MD - 04/10/2024 12:04 PM EDT Patient should reach out to his mounter smoking pipe * Telephone Encounter - Rosetta Tavarez M.A. - 04/10/2024 11:44 AM EDT Images from the original note were not included. Patient Comment: I have been in terrible pain. Unable to function normally Called patient - pt states is familiar with what is going on in regards to his pain. Hehas an appt with physiatry. Pt also states he is having pain from his arthritis. Asking for a refill on the Oxycodone. NO CSC or PSI on file Medication request (s) pended for review Last appt - 03/05/24 Next appt - 04/21/24 Last appt w/ PCP - same as above No results found for: URBENZO, UROPIATES, UROXYCODONE, URBARBITUATE, PAINAMPHETAM, PAINCOCAINE, PAINCANNABIN HAND FUR CLEANER documented in this encounter Plan of Treatment Not on file documented as of this encounter Visit Diagnoses Not on filedocumented in this encounter Care Teams Welt Drawer Relationship Specialty Start Date End Date Jose Alfredo Kiser MD [address] [place] [address] PCP - General Internal Medicine 06/25/22 documented as of this encounter
--- OUTSIDE RECORDS SUMMARY | 2024-10-26 12:41 | XMS_ITS | Encounter Summary ---
Author Organization [facility] Address [facility] [place] [address] Care Team Providers Care Windows Migration Technician Name Role Phone Jose Alfredo Kiser MD Primary Care Provider [phone] [phone] Encounter Details Date Type Department Care Team Description 05/05/2024 Hospital Medical Records [address] [place], [place] [id number] [place] [address] Social History Tobacco Use Types Packs/Day Years Used Date Smoking Tobacco: Some Days Cigarettes 1 Started: 1968; Last attempted to quit: 07/29/1979 Cigars Smokeless Tobacco: Never Comments:Quit cig. smoking i n 1980.one cigar per day. Alcohol Use Standard Drinks/Week [...] How often do you attend [facility] or jainism services? Never 10/17/2023 Do you belong to any clubs o r organizations such as congregation groups, unions, fraternal or athletic groups, or [...] place to sleep or slept in a halfway (including now)? No 10/17/2023 Sex Assigned at Date Recorded Not on file Job Start Date Occupation Industry Not on file Not on file Not on file documented as of this encounter Plan of Treatment Not on file documented as of this encounter Visit Diagnoses Not on filedocumented in this encounter Care Teams Windows Migration Technician Relationship Specialty Start Date End Date Jose Alfredo Kiser MD [address] [place] [address] PCP - General Internal Medicine 06/25/22 documented as of this encounter
--- OUTSIDE RECORDS SUMMARY | 2024-10-26 12:41 | XMS_ITS | Clinical Summary ---
Author Organization [facility] Address [address] [place] [address] Care Team Providers Care College Instructor Name Role Phone Rosetta Kiser MD Primary [...] mouth 1 (one) time each day. Active aspirin 81 mg EC tablet Take 1 tablet (81 mg total) by mouth 1 (one) time each day. Active hydrALAZINE (APRESOLINE) 25 mg tabletIndicati ons:hypertensi on Take 1 tablet (25 mg total) by mouth 3 (three) times a day. 90 each 5 06/10/20 24 025 Active magnesium oxide 250 mg magnesium tabletIndicati ons:Abnormal level of blood mineral TAKE 1 TABLET BY MOUTH EVERY DAY IN THE EVENING 90 tablet 1 07/02/20 24 Active atorvastatin (LIPITOR) 10 mg tablet TAKE 1 TABLET BY MOUTH EVERY DAY 90 tablet 1 08/28/19 25 Active oxyCODONE (ROXICODONE) 10 [...] 90 each 1 09/07/19 25 025 Active buPROPion XL (WELLBUTRIN XL) 150 mg 24 hr tablet Take 1 tablet (150 mg total) by mouth 1 (one) time each day. Do not crush, chew, or split. Active carvediloL (COREG) 3.125 mg tablet Take 1 tablet (3.125 mg total) by mouth 2 (two) times a day with meals. 60 each 5 10/10/19 25 Active omeprazole (PriLOSEC) [address] capsule TAKE 1 CAPSULE BY MOUTH EVERY DAY 90 capsule 1 10/21/19 25 Active amLODIPine (NORVASC) 10 mg tablet Take 1 Tablet by mouth daily for 180 days. 09/10/19 24 025 Discontinued(Pr escriber Discontinued) armodafiniL (NUVIGIL) 200 mg tablet Take 1 Tablet by mouth at bedtime as needed (sleep). 04/21/20 24 025 Discontinued(Di scontinued by another clinician) omeprazole (PriLOSEC) [address] capsule Take 1 capsule (20 mg total) by mouth 1 (one) time each day. 04/13/20 24 025 Discontinued chlorthalidone (HYGROTON) 25 mg tablet Take 0.5 tablets (12.5 mg total) by mouth 1 (one) time each day. 45 each 1 06/23/20 24 025 Discontinued(Di scontinued by another clinician) cloNIDine (CATAPRES) 0.1 mg tablet Take 1 tablet (0.1 mg total) by mouth at bedtime. 30 each 5 08/26/19 25 025 Discontinued(Di scontinued by another clinician) dilTIAZem CD (CARDIZEM CD) 120 mg 24 hr capsule TAKE 1 CAPSULE BY MOUTH AT BEDTIME 90 capsule 1 08/28/19 25 025 Discontinued(Di scontinued by another clinician) Active Problems Problem Noted [...] Type Department Care Team Description 10/09/2024 Telephone [facility] [address] [place] [phone] Zainab Pierce RN Holter results and med changes 09/30/2024 9:40 AM EST Office Visit [facility] Cardiology [facility] [address] [place] [address] Angela Christensen NP Hypercholesterolemia (Primary Dx); Essential hypertension; Palpitations; Other chest pain 09/30/2024 8:00 AM EST Ancillary Procedure [facility] [address] [place] [phone] Palpitations 09/23/2024 Telephone Adult [address] [address] Rosetta Monaco MD Medication Problem 09/07/2024 2:30 PM EST Office Visit Adult [address] [address] Rosetta Monaco MD Primary hypertension (Primary Dx); Chronic low back pain, unspecified back pain laterality, unspecified whether sciatica present; Chronic neck pain 09/03/2024 Telephone Adult [address] [address] Claire Martinez MA 09/03/2024 Telephone Adult [address] [address] Rosetta Monaco MD Appointment 09/02/2024 1:30 PM EST - 09/02/2024 11:59 PM EST Hospital Encounter [address] [address] Impingement syndrome of left shoulder Discharge Disposition: Home or Self Care 08/03/2024 1:30 PM EST Office Visit [address] [address] Rosetta Monaco MD Essential hypertension (Primary Dx); Arthritis, wrist; Inflammatory arthritis 08/03/2024 Telephone Adult [address] [address] Rosetta Tavarez MA from Last 3 Months Immunizations Name Administration Dates Next Due Influenza Quadravalent, MDCK , 0.5ml, preservative free (Flucelvax) 6mo and older 05/21/2017,06/05/2016 Influenza Quadravalent, MDCK , 0.5ml, with preservative (Flucelvax) 6mo and older 05/15/2019 Influenza trivalent, 0.5mL ( Fluad) 65yo and older 04/21/2024,03/21/2020,05/12/2018,05/14 Influenza, Unspecified 05/21/2017,05/29/2016 Pfizer Covid-19 Bivalent, Or iginal + Ba.1 (Non-US Trademark COMIRNATY Bivalent) 04/12/2022 [email or web address] SARS-CoV-2 COVID-19, mRNA, LNP-S, preservative free 05/16/2023 Pneumococcal conjugate 13 va lent (Prevnar 13, PCV13) 2mo and older 08/04/2018 Pneumococcal polysaccharide 23 valent (Pneumovax 23) 2yo and older 03/21/2020 Tdap Tetanus diptheria acell ular pertussis (Boostrix; Adacel) 7yo and older 01/17/2016 Zoster Live 01/13/2017 Surgical History Surgery Date Site/Laterality Comments CARPAL TUNNEL RELEASE 2011 PROCEDURE: MO NEUROPLASTY &/TRANSPOS MEDIAN NRV CARPAL TUNNE COLONOSCOPY [...] AM EDT Office Visit Adult Medicine - [address] [address] Rosetta Kiser MD [address] [place] [address] 02/04/2025 10:10 AM EDT Office Visit [facility] [address] [address] CyczAngel NP [address] [place] [address] [place] [address] [place] [address] Health Maintenance Due Date Last Done Comments [...] Diagnost ic Narrative 10/08/2024 9:54 AM EDT [facility] DI[facility]STIC [facility]ING DEPARTMENT [address] [facility], [address], [place] [address] TEL: FAX: Type of Test: 24 Hour [...] Diary returned with no symptoms noted. us Agnel Christensen NP CV CARDIAC SERVICES PROCEDU RES [...] Signed Date: 09/02/2024 21:54 ET Workstation ID: [id number] Transcribed By: Self Edit Transcribed Date: 09/02/2024 [...] Signed Date: 09/02/2024 21:54 ET Workstation ID: [id number] Transcribed By: Self Edit Transcribed Date: 09/02/2024 21:53 ET Dax MELISSA IMG XR PROCEDURES Final Result * (ABNORMAL) Comprehensive metabolic panel (06/23/2024 10:57 AM EST) Sodium 140 133 - 145 mmol/L LAB CHEMISTRY METHOD 06/23/2024 1:02 PM [facility] Potassium 3.9 3.5 - 5.5 mmol/L LAB CHEMISTRY METHOD 06/23/2024 1:02 PM [facility] Chloride 104 96 - 110 mmol/L LAB CHEMISTRY METHOD 06/23/2024 1:02 PM [facility] CO2 28 21 - 32 mmol/L LAB CHEMISTRY METHOD 06/23/2024 1:02 PM [facility] Anion Gap 8 3 - 11 LAB CHEMISTRY METHOD 06/23/2024 1:02 PM [facility] Glucose 84 70 - 100 mg/dL LAB CHEMISTRY METHOD 06/23/2024 1:02 PM [facility] BUN 32(H) 5 - 25 mg/dL LAB CHEMISTRY METHOD 06/23/2024 1:02 PM [facility] Creatinine 1.40(H) 0.70 - 1.30 mg/dL LAB CHEMISTRY METHOD 06/23/2024 1:02 PM [facility] eGFR 54(L) >=60 mL/min/1. 73m2 LAB CHEMISTRY METHOD 06/23/2024 1:02 PM [facility] Comment:Calculation based on the??Chronic Kidney Disease Epidemiology Collaboration (CKD-EPI) equation refit??without adjustment for race. BUN/Creatinine Ratio 22.9 LAB CHEMISTRY METHOD 06/23/2024 1:02 PM [facility] Calcium 9.7 8.5 - 10.5 mg/dL LAB CHEMISTRY METHOD 06/23/2024 1:02 PM [facility] AST (SGOT) 33 10 - 42 unit/L LAB CHEMISTRY METHOD 06/23/2024 1:02 PM [facility] ALT (SGPT) 41 10 - 60 unit/L LAB CHEMISTRY METHOD 06/23/2024 1:02 PM [facility] Alkaline Phosphatase 101 42 - 121 unit/L LAB CHEMISTRY METHOD 06/23/2024 1:02 PM [facility] Total Protein 7.4 6.0 - 8.0 g/dL LAB CHEMISTRY METHOD 06/23/2024 1:02 PM [facility] Albumin 3.9 3.2 - 5.0 g/dL LAB CHEMISTRY METHOD 06/23/2024 1:02 PM [facility] Total Bilirubin 0.6 0.0 - 1.4 mg/dL LAB CHEMISTRY METHOD 06/23/2024 1:02 PM [facility] Blood Venous blood specimen / Unknown Venipuncture / Unknown 06/23/2024 10:57 AM EST 06/23/2024 10:57 AM EST us Rosetta Kiser MD LAB BLOOD ORDERABL ES Final Result [facility] [address] [place] [address], * (ABNORMAL) Lipid panel (04/24/2024) LDL/HDL Ratio [...] Screening abstracted Anatomical Region Laterality Modality Other [facility] Provider HEALTH MAINTENANCE Final Result * Hepatitis C Screening (01/08/2024) Pathologist [facility] Hepatitis C Screening abstracted [facility] Provider HEALTH MAINTENANCE Final Result * Colonoscopy (10/05/2015) Pathologist [facility] Colonoscopy no interpretation , abstracted Anatomical Region Laterality Modality Other [facility] Provider HEALTH MAINTENANCE Final Result from Last 3 Months or Most Recently Relevant to Health Maintenance Insurance MEDICARE [facility] Advance Directives Documents on File Type Date Recorded Patient Credit Control Assistant Expl anation Health Care Decision (hx) 09/15/2019 [...] (hx) 09/11/2019 AD VERDIN DIRECTIVE Care Teams College Instructor Relationship Specialty Start Date End Date Rosetta Kiser MD [address] [place] [address] PCP - General Internal Medicine 09/02/24
--- OUTSIDE RECORDS SUMMARY | 2024-10-26 12:41 | XMS_ITS | Encounter Summary ---
Author Organization [facility] Address [address] [place] [address] Care Team Providers Care Ear Nose And Throat Specialist Name Role Phone Nino Palencia MD Primary Care Provider [phone] Jose Alfredo Kiser MD Primary Care Provider [phone] Encounter Details Date Type Department Care Team Description 03/10/2016 Release of Information Medical Records [address] [place] [address] Abstract, Provider Social History Tobacco Use Types Packs/Day Years Used Date Smoking Tobacco: Former Cigarettes 1 0 1968 - 07/29/1979 Cigars Smokeless Tobacco: Never Alcohol Use [...] week 10/17/2023 How often do you attend [facility] or sabianist services? Never 10/17/2023 Do you belong to any clubs o r organizations such as anabaptism groups, unions, fraternal or athletic groups, or [...] place to sleep or slept in a retirement (including now)? No 10/17/2023 Sex Assigned at Date Recorded Not on file Job Start Date Occupation Industry Not on file Not on file Not on file documented as of this encounter Plan of Treatment Not on file documented as of this encounter Visit Diagnoses Not on filedocumented in this encounter Care Teams Ear Nose And Throat Specialist Relationship Specialty Start Date End Date Nino Palencia MD [address] [place] [address] PCP - General Internal Medicine 07/07/15 06/24/22 Jose Alfredo Kiser MD [address] [place] [address] PCP - General Internal Medicine 06/25/22 documented as of this encounter
--- OUTSIDE RECORDS SUMMARY | 2024-10-26 12:41 | XMS_ITS | Encounter Summary ---
Author Organization [facility] Address [address] [place] [address] Care Team Providers Care Clay Molder Name Role Phone Jose Alfredo Kiser MD Primary Care Provider [phone] Reason for Visit * Reason Onset Date Comments hospital follow up 05/11/2024 Encounter Details Date Type Department Care Team Description 05/11/2024 Telephone Adult [facility] [place] [address] [place] [address] Jose Alfredo Kiser MD [address] [place] [address] hospital follow up Social History Tobacco Use Types Packs/Day Years [...] 10/17/2023 How often do you attend chur or baptism services? Never 10/17/2023 Do you [...] place to sleep or slept in a usp (including now)? No 10/17/2023 Sex Assigned at Date Recorded Not on file Job Start Date Occupation Industry Not on file Not on file Not on file documented as of this encounter Miscellaneous Notes * Telephone Encounter - Jose Alfredo Kiser MD - 05/11/2024 2:31 PM EDT Oxycodone sent to his pharmacy * Telephone Encounter - Ciaran Wiggins RN - 05/11/2024 10:05 AM EDT Appointment scheduled Pt is requesting more oxy to get through to the , notes on desk * Telephone Encounter - Chari Angelic - 05/11/2024 9:58 AM EDT Hospital follow up appointment needed Hospital patient was treated at: [facility] Was this only an ER visit or was the patient admitted to the hospital? Admitted to hospital Date of visit if ER visit only: N/A If patient was admitted what was the date of discharge? Reason/diagnosis for visit or stay: acute kidney inj - surgical stenosis, hypertension When was the patient told to follow up? Was visit or stay related to an injury? NO If yes, what was the date of injury (DOI)? N/A If yes, was the injury due to N/A documented in this encounter Plan of Treatment Not on file documented as of this encounter Visit Diagnoses Not on filedocumented in this encounter Care Teams Clay Molder Relationship Specialty Start Date End Date Jose Alfredo Kiser MD [address] [place] [address] PCP - General Internal Medicine 06/25/22 documented as of this encounter
--- OUTSIDE RECORDS SUMMARY | 2024-10-26 12:41 | XMS_ITS | Encounter Summary ---
Author Organization [facility] Address [address] [place] [address] Care Team Providers Care Accounts Collector Name Role Phone Jose Alfredo Kiser MD Primary Care Provider [phone] Encounter Details Date Type Department Care Team Description 06/25/2022 Telephone Adult Medicine - [place] [address] [place], [place] [phone] Nino Palencia MD [address] [place], [place] [phone] Social History Tobacco Use Types Packs/Day Years [...] How often do you attend [facility] or latter-day services? Never 10/17/2023 Do you belong to [...] place to sleep or slept in a [place] [facility] [place] (including now)? No 10/17/2023 Sex Assigned at Date Recorded Not on file Job Start Date Occupation Industry Not on file Not on file Not on file COVID-19 Exposure Response Date Recorded In the last 10 days, have yo u been in contact with someone who was confirmed or suspected to have Coronavirus/COVID-19? No / Unsure 06/25/2022 3:47 PM EST documented as of this encounter Plan of Treatment Not on file documented as of this encounter Visit Diagnoses Not on filedocumented in this encounter Care Teams Accounts Collector Relationship Specialty Start Date End Date Jose Alfredo Kiser MD [address] [place] [address] PCP - General Internal Medicine 06/25/22 documented as of this encounter
--- OUTSIDE RECORDS SUMMARY | 2024-10-26 12:41 | XMS_ITS | Encounter Summary ---
Author Organization [facility] Address [address] [place] [address] Care Team Providers Care Board Operator Name Role Phone Nino Palencia MD Primary Care Provider [phone] Jose Alfredo Kiser MD Primary Care Provider [phone] Encounter Details Date Type Department Care Team Description 09/15/2019 [facility] Medical Records [address] [place] [address] Mike Arias MD Social History Tobacco Use [...] often do you attend chur ch or taoism services? Never 10/17/2023 Do you belong to any clubs o r organizations such as yazidi groups, unions, fraternal or athletic groups, or [...] place to sleep or slept in a prison (including now)? No 10/17/2023 Sex Assigned at Date Recorded Not on file Job Start Date Occupation Industry Not on file Not on file Not on file documented as of this encounter Plan of Treatment Not on file documented as of this encounter Visit Diagnoses Not on filedocumented in this encounter Care Teams Board Operator Relationship Specialty Start Date End Date Nino Palencia MD [address] [place] [address] PCP - General Internal Medicine 07/07/15 06/24/22 Jose Alfredo Kiser MD [address] [place] [address] PCP - General Internal Medicine 06/25/22 documented as of this encounter
--- OUTSIDE RECORDS SUMMARY | 2024-10-26 12:41 | XMS_ITS | Encounter Summary ---
Author Organization [facility] Address [facility] [place] [address] Care Team Providers Care Tea Bag Packer Name Role Phone Jose Alfredo Kiser MD Primary Care Provider [phone] Reason for Visit * Reason Onset Date Comments Neck Pain 04/30/2024 Encounter Details Date Type Department Care Team Description 04/30/2024 Telephone Adult Medicine - [place] [address] [place] [address] Jose Alfredo Kiser MD [address] [place] [address] Neck Pain Social History Tobacco Use Types Packs/Day Years [...] How often do you attend chur or muslim services? Never 10/17/2023 Do you belong to any clubs o r organizations such as mormonism groups, unions, fraternal or athletic groups, or [...] encounter Miscellaneous Notes * Telephone Encounter - Ciaran Wiggins RN - 05/05/2024 9:45 AM EDT Left message for pt to please return our call * Telephone Encounter - Ciaran Wiggins RN - 04/30/2024 9:25 AM EDT Tried calling phone does not take blocked numbers please call from office * Telephone Encounter - Chari Atwood - 04/30/2024 9:21 AM EDT Symptoms patient is presenting: neck pain radiating down to his leg - pt awaiting surgery For ALL patients calling to schedule any appointment (routine, sick visit, follow up, consult, etc.) in the outpatient setting please ask the following questions: ?? Do you have fever of higher than 101, sore throat with difficulty swallowing or severe shortnessof breath? NO If YES to any of these above symptoms, send a message to triage and do not book. Red dot. If no, an audio or video visit should be booked. ?? Have you had close contact with someone with Coronavirus in the last 14 days? NO ?? Have you traveled abroad? NO ?? Have you traveled recently to another state outside of [place], [place], [place], [place], [place], [place], [place]? NO o If yes, did you quarantine for 14 days or have a negative covid test? NO If yes to any of the above, patient is not to be scheduled in office until after 14 day quarantine or negative covid test. If pain or injury related was it due to an accident at work or from a motor vehicle accident? NO If yes, gather 3rd libertarian insurance information Date of accident/Injury: How long has patient had these symptoms?: ongoing PCP: Rosetta Kiser [place] / Plan: [place] / Product Type: MEDICARE [id number] documented in this encounter Plan of Treatment Not on file documented as of this encounter Visit Diagnoses Not on filedocumented in this encounter Care Teams Tea Bag Packer Relationship Specialty Start Date End Date Jose Alfredo Kiser MD [facility] [place] [address] PCP - General Internal Medicine 06/25/22 documented as of this encounter
--- OUTSIDE RECORDS SUMMARY | 2024-10-26 12:41 | XMS_ITS | Encounter Summary ---
Author Organization [facility] Address [facility] [place] [address] Care Team Providers Care Refresh Technician Name Role Phone Jose Alfredo Kiser MD Primary Care Provider [phone] Encounter Details Date Type Department Care Team Description 04/24/2024 Furnace Process Supervisor Report Medical Records [address] [place] [address] Saw Paz MD, PHD Social History Tobacco Use Types Packs/Day Years [...] week 10/17/2023 How often do you attend [facility] or jew services? Never 10/17/2023 Do you belong to any clubs o r organizations such as evangelical groups, unions, fraternal or athletic groups, or [...] place to sleep or slept in a penitentiary (including now)? No 10/17/2023 Sex Assigned at Date Recorded Not on file Job Start Date Occupation Industry Not on file Not on file Not on file documented as of this encounter Plan of Treatment Not on file documented as of this encounter Visit Diagnoses Not on filedocumented in this encounter Care Teams Refresh Technician Relationship Specialty Start Date End Date Jose Alfredo Kiser MD [facility] [place] [address] PCP - General Internal Medicine 06/25/22 documented as of this encounter
--- OUTSIDE RECORDS SUMMARY | 2024-10-26 12:41 | XMS_ITS | Encounter Summary ---
Author Organization [facility] Address [address] [place] [address] Care Team Providers Care Junior Java Developer Name Role Phone Nino Palencia MD Primary Care Provider +1 [phone] Jose Alfredo Kiser MD Primary Care Provider [phone] [phone] Encounter Details Date Type Department Care Team Description 03/02/2021 Orders Only Medical Records [address] [place] [address] Poonam Urbina MD [address] [place] [address] Social History Tobacco Use Types Packs/Day Years [...] often do you attend chur ch or church services? Never 10/17/2023 Do you belong to any clubs o r organizations such as yarsani groups, unions, fraternal or athletic groups, or [...] place to sleep or slept in a senior living (including now)? No 10/17/2023 Sex Assigned at Date Recorded Not on file Job Start Date Occupation Industry Not on file Not on file Not on file COVID-19 Exposure Response Date Recorded In the last month, have you been in contact with someone who was confirmed or suspected to have Coronavirus / COVID-19? No / Unsure 02/14/2021 1:35 PM EDT documented as of this encounter Plan of Treatment Not on file documented as of this encounter Procedures Procedure Name Priority Date/Time Associated Diagnosis Comments OUTSIDE PLAIN FILM Routine 02/28/2021 documented in this encounter Results * OUTSIDE PLAIN FILM (02/28/2021) Poonam Urbina MD RADIOLOGY documented in this encounter Visit Diagnoses Not on filedocumented in this encounter Care Teams Junior Java Developer Relationship Specialty Start Date End Date Nino Palencia MD [address] [place] [address] PCP - General Internal Medicine 07/07/15 06/24/22 Jose Alfredo Kiser MD [address] [place] [address] PCP - General Internal Medicine 06/25/22 documented as of this encounter
--- OUTSIDE RECORDS SUMMARY | 2024-10-26 12:41 | XMS_ITS | Encounter Summary ---
Author Organization [facility] Address [address] [place] [address] Care Team Providers Care Stave Jointer Name Role Phone Jose Alfredo Kiser MD Primary Care Provider [phone] [phone] Encounter Details Date Type Department Care Team Description 05/08/2023 Provider Relations Representative Report Medical Records [address] [place] [address] Dax Chambers PA-C Social History Tobacco Use [...] 10/17/2023 How often do you attend [facility] or jain services? Never 10/17/2023 Do you belong to [...] on filedocumented in this encounter Care Teams Stave Jointer Relationship Specialty Start Date End Date Jose Alfredo Kiser MD [facility] [place] [address] PCP - General Internal Medicine 06/25/22 documented as of this encounter
--- OUTSIDE RECORDS SUMMARY | 2024-10-26 12:41 | XMS_ITS | Encounter Summary ---
Author Organization [facility] Address [address] [place] [address] Care Team Providers Care Manufacturing Systems Engineer Name Role Phone Jose Alfredo Kiser MD Primary Care Provider [phone] [phone] Encounter Details Date Type Department Care Team Description 03/06/2024 Telephone Adult Medicine - [place] [address] [place], [place] [id number] Jose Alfredo Kiser, [address] [place] [address] Social History Tobacco Use Types Packs/Day Years [...] often do you attend chur ch or hoahaoism services? Never 10/17/2023 Do you belong to any clubs o r organizations such as mu-ism groups, unions, fraternal or athletic groups, or [...] encounter Miscellaneous Notes * Telephone Encounter - Olinda Mari M.A. - 03/06/2024 1:36 PM EDT Copy of labs were mailed to address on file. documented in this encounter Plan of Treatment Not on file documented as of this encounter Visit Diagnoses Not on filedocumented in this encounter Care Teams Manufacturing Systems Engineer Relationship Specialty Start Date End Date Jose Alfredo Kiser MD [facility] [place] [address] PCP - General Internal Medicine 06/25/22 documented as of this encounter
--- OUTSIDE RECORDS SUMMARY | 2024-10-26 12:41 | XMS_ITS | Encounter Summary ---
Author Organization [facility] Address [address] [place] [address] Care Team Providers Care Long Distance Billing Operator Name Role Phone Jose Alfredo Kiser MD Primary Care Provider [phone] [phone] Encounter Details Date Type Department Care Team Description 05/11/2024 Orders Only Adult Medicine - [place] [address] [place] [address] Jose Alfredo Kiser MD [address] [place] [address] Social History Tobacco Use Types Packs/Day Years [...] often do you attend chur ch or buddhist services? Never 10/17/2023 Do you belong to any clubs o r organizations such as mosque groups, unions, fraternal or athletic groups, or [...] on filedocumented in this encounter Care Teams Long Distance Billing Operator Relationship Specialty Start Date End Date Jose Alfredo Kiser MD [address] [place] [address] PCP - General Internal Medicine 06/25/22 documented as of this encounter
--- OUTSIDE RECORDS SUMMARY | 2024-10-26 12:41 | XMS_ITS | Encounter Summary ---
Author Organization [facility] Address [address] [place] [address] Care Team Providers Care Airplane Electrical Repairer Name Role Phone Jose Alfredo Kiser MD Primary Care Provider [phone] [phone] Encounter Details Date Type Department Care Team Description 01/20/2024 End Matcher Report Medical Records [address] [place] [address] Dax Chambers PA-C Social History Tobacco Use [...] week 10/17/2023 How often do you attend [facility] or rastafari services? Never 10/17/2023 Do you belong to any clubs o r organizations such as spiritism groups, unions, fraternal or athletic groups, or [...] on filedocumented in this encounter Care Teams Airplane Electrical Repairer Relationship Specialty Start Date End Date Jose Alfredo Kiser MD [facility] [place] [address] PCP - General Internal Medicine 06/25/22 documented as of this encounter
--- OUTSIDE RECORDS SUMMARY | 2024-10-26 12:41 | XMS_ITS | Encounter Summary ---
Author Organization [facility] Address [address] [place] [address] Care Team Providers Care Rubber Compounder Formulator Name Role Phone Nino Palencia MD Primary Care Provider [phone] Jose Alfredo Kiser MD Primary Care Provider [phone] [phone] Encounter Details Date Type Department Care Team Description 01/13/2019 Telephone Adult Medicine [address] [address] Tito Loja, PA Social History Tobacco Use [...] week 10/17/2023 How often do you attend [facility] or episcopalian services? Never 10/17/2023 Do you belong to any clubs o r organizations such as pentecostal groups, unions, fraternal or athletic groups, or [...] encounter Miscellaneous Notes * Telephone Encounter - Treasure Sherman M.A. - 01/16/2019 3:51 PM EDT Notes requested. * Telephone Encounter - Tito Loja PA-C - 01/13/2019 8:52 AM EDT Please request LDCT resuts from [facility], patient gets these annually, no recent records. documented in this encounter Plan of Treatment Not on file documented as of this encounter Visit Diagnoses Not on filedocumented in this encounter Care Teams Rubber Compounder Formulator Relationship Specialty Start Date End Date Nino Palencia MD [address] [place] [address] PCP - General Internal Medicine 07/07/15 06/24/22 Jose Alfredo Kiser MD [address] [place] [address] PCP - General Internal Medicine 06/25/22 documented as of this encounter
--- OUTSIDE RECORDS SUMMARY | 2024-10-26 12:41 | XMS_ITS ---
Author Organization [facility] [place] [address] Care Team Providers Care Harbor Master Name Role Phone Rosetta Kiser MD Primary Care Prov ider Chronic Care Management Status:Ongoing (Active) Start date:06/03/2024 Enrollment date:06/12/2024 Enrollment reason:Referred by Care Team Case Team Name Relationship Phone Hanna Alvarez RN Care Manager(Responsible S taff) Continued Care and Services Coordination
--- OUTSIDE RECORDS SUMMARY | 2024-10-26 12:41 | XMS_ITS | Encounter Summary ---
Author Organization [facility] Address [address] [place] [address] Care Team Providers Care Banking Manager Name Role Phone Jose Alfredo Kiser MD Primary Care Provider [phone] Reason for Visit * Reason Onset Date Comments External Sleep Study Request 02/03/2024 Sle ep study Encounter Details Date Type Department Care Team Description 02/03/2024 Telephone Adult Medicine [address] [address] Christin Askew PA-C [address] [place] [address] External Sleep Study Request (Sleep study ) Social History Tobacco Use Types Packs/Day Years [...] How often do you attend chur or oriental orthodox services? Never 10/17/2023 Do you belong [...] to sleep or slept in a senior care (including now)? No 10/17/2023 Sex Assigned at Date Recorded Not on file Job Start Date Occupation Industry Not on file Not on file Not on file documented as of this encounter Miscellaneous Notes * Telephone Encounter - Katiuska Mustafa - 02/03/2024 3:12 PM EDT Medicare/Medex no auth required for any sleep study Order and benefits faxed to [facility] for scheduling. They will contact pt. Notification letter sent. documented in this encounter Plan of Treatment Not on file documented as of this encounter Visit Diagnoses Not on filedocumented in this encounter Care Teams Banking Manager Relationship Specialty Start Date End Date Jose Alfredo Kiser MD [facility] [place] [address] PCP - General Internal Medicine 06/25/22 documented as of this encounter
--- OUTSIDE RECORDS SUMMARY | 2024-10-26 12:41 | XMS_ITS | Encounter Summary ---
Author Organization [facility] Address [address] [place] [address] Care Team Providers Care Hearing Dog Trainer Name Role Phone Nino Palencia MD Primary Care Provider [phone] Jose Alfredo Kiser MD Primary Care Provider [phone] [phone] Encounter Details Date Type Department Care Team Description 11/02/2021 Label Cutter Report Medical Records [address] [place] [address] [place] Social History Tobacco Use Types Packs/Day Years [...] week 10/17/2023 How often do you attend [facility] or latter-day services? Never 10/17/2023 Do you belong to any clubs o r organizations such as adventism groups, unions, fraternal or athletic groups, or [...] place to sleep or slept in a assisted (including now)? No 10/17/2023 Sex Assigned at Date Recorded Not on file Job Start Date Occupation Industry Not on file Not on file Not on file COVID-19 Exposure Response Date Recorded In the last 10 days, have yo u been in contact with someone who was confirmed or suspected to have Coronavirus/COVID-19? No / Unsure 10/25/2021 1:38 PM EDT documented as of this encounter Plan of Treatment Not on file documented as of this encounter Visit Diagnoses Not on filedocumented in this encounter Care Teams Hearing Dog Trainer Relationship Specialty Start Date End Date Nino Palencia MD [address] [place] [address] PCP - General Internal Medicine 07/07/15 06/24/22 Jose Alfredo Kiser MD [address] [place] [address] PCP - General Internal Medicine 06/25/22 documented as of this encounter
--- OUTSIDE RECORDS SUMMARY | 2024-10-26 12:41 | XMS_ITS | Encounter Summary ---
Author Organization [facility] Address [address] [place] [address] Care Team Providers Care Custodian Manager Name Role Phone Nino Palencia MD Primary Care Provider [phone]- [phone] Jose Alfredo Kiser MD Primary Care Provider [phone] [phone] Encounter Details Date Type Department Care Team Description 03/02/2021 [facility] Medical Records [address] [place] [address] Poonam Urbina MD [address] [place] [address] Social History Tobacco Use Types Packs/Day Years [...] often do you attend chur ch or sabianism services? Never 10/17/2023 Do you belong to any clubs o r organizations such as buddhist groups, unions, fraternal or athletic groups, or [...] place to sleep or slept in a fdc (including now)? No 10/17/2023 Sex Assigned at [...] on filedocumented in this encounter Care Teams Custodian Manager Relationship Specialty Start Date End Date Nino Palencia MD [address] [place] [address] PCP - General Internal Medicine 07/07/15 06/24/22 Jose Alfredo Kiser MD [address] [place] [address] PCP - General Internal Medicine 06/25/22 documented as of this encounter
--- OUTSIDE RECORDS SUMMARY | 2024-10-26 12:41 | XMS_ITS | Encounter Summary ---
Author Organization [facility] Address [address] [place] [address] Care Team Providers Care Interventional Radiology Rn Name Role Phone Nino Palencia MD Primary Care Provider [phone] Jose Alfredo Kiser MD Primary Care Provider [phone] Encounter Details Date Type Department Care Team Description 03/07/2018 Hospital Medical Records [address] [place] [address] Mary Cade MD Social History Tobacco Use Types Packs/Day [...] often do you attend chur ch or nondenominational services? Never 10/17/2023 Do you belong to any clubs o r organizations such as gnosticism groups, unions, fraternal or athletic groups, or [...] place to sleep or slept in a longterm (including now)? No 10/17/2023 Sex Assigned at Date Recorded Not on file Job Start Date Occupation Industry Not on file Not on file Not on file documented as of this encounter Plan of Treatment Not on file documented as of this encounter Visit Diagnoses Not on filedocumented in this encounter Care Teams Interventional Radiology Rn Relationship Specialty Start Date End Date Nino Palencia MD [address] [place] [address] PCP - General Internal Medicine 07/07/15 06/24/22 Jose Alfredo Kiser MD [address] [place] [address] PCP - General Internal Medicine 06/25/22 documented as of this encounter
--- OUTSIDE RECORDS SUMMARY | 2024-10-26 12:41 | XMS_ITS | Encounter Summary ---
Author Organization [facility] Address [address] [place] [address] Care Team Providers Care Veneer Glue Spreader Name Role Phone Nino Palencia MD Primary Care Provider [phone] Jose Alfredo Kiser MD Primary Care Provider [phone] Reason for Visit * Reason Onset Date Comments refill request 09/07/2019 Encounter Details Date Type Department Care Team Description 09/07/2019 Refill Adult Medicine - [place] [address] [place] [address] Nino Palencia MD [address] [place] [address] refill request Social History Tobacco Use Types Packs/Day Years [...] How often do you attend chur or scientologist services? Never 10/17/2023 Do you belong to any clubs o r organizations such as voodoo groups, unions, fraternal or athletic groups, or [...] encounter Miscellaneous Notes * Telephone Encounter - Joann Rosenthal - 09/09/2019 1:15 PM EST Patient scheduled for tomorrow 09/10 * Telephone Encounter - Betzaida Mari M.A. - 09/08/2019 9:40 AM EST I called and left a message for keith to call back for med rev appt. * Telephone Encounter - Betzaida Mari M.A. - 09/08/2019 9:37 AM EST Lab Results Component Value Date NA 139 01/13/2019 K 4.0 01/13/2019 CO2 28 01/13/2019 CL 103 01/13/2019 BUN 21 01/13/2019 CREAT 0.90 01/13/2019 GLU 94 01/13/2019 CA 8.9 01/13/2019 GFR > 60 01/13/2019 Last OV 01/13/2019 Next appt. No appt. BSR please schedule a appt for med rev. Please review and sign for medication if appropriate. Betzaida Mari [place] Refill Dept. Ext: [phone] Thank You * Telephone Encounter - Christin Coleman - 09/07/2019 9:34 AM EST Patient would like script to be: E-PRESCRIBED/FAXED TO PHARMACY WHEN WAS THE PATIENT'S LAST APPOINTMENT IN ADULT MEDICINE? 01/13/19 WHEN WAS THE LAST TIME THE PATIENT SAW THEIR PCP? 05/27/17 Does patient have an upcoming appointment? No-patient refused appointment, will call back to book appointment (THE MEDICATION REQUESTED IS ON THE MED LIST ABOVE) All of the medications requested were on the CURRENT MEDS list Did you check the Pharmacy information above?: YES Patient wants: 30 -day supply Is this a mail order prescription request ? NO If the refill is from a FAXED refill request what is the RX # listed on the fax? N/A Patients current insurance carrier is: Payor: [facility] / Plan: MEDEX ([facility] [place] / Product Type: MEDICARE [id number] documented in this encounter Plan of Treatment Not on file documented as of this encounter Visit Diagnoses Not on filedocumented in this encounter Care Teams Veneer Glue Spreader Relationship Specialty Start Date End Date Nino Palencia MD [address] [place] [address] PCP - General Internal Medicine 07/07/15 06/24/22 Jose Alfredo Kiser MD [address] [place] [address] PCP - General Internal Medicine 06/25/22 documented as of this encounter
--- OUTSIDE RECORDS SUMMARY | 2024-10-26 12:41 | XMS_ITS ---
Author Organization [facility] [place] [address] Care Team Providers Care Medical Attendant Name Role Phone Rosetta Kiser MD Primary Care Prov ider Transitional Care Management Status:Closed (Closed) Start date:09/23/2024 Enrollment date:09/25/2024 Enrollment reason:Identified using hospital discharge data End date:10/23/2024 Close reason:Completed program Continued Care and Services Coordination
--- OUTSIDE RECORDS SUMMARY | 2024-10-26 12:41 | XMS_ITS | Encounter Summary ---
Author Organization [facility] Address [address] [place] [address] Care Team Providers Care Electric Dolly Operator Name Role Phone Nino Palencia MD Primary Care Provider [phone]- [phone] Jose Alfredo Kiser MD Primary Care Provider [phone] Encounter Details Date Type Department Care Team Description 02/28/2021 Telephone Adult Medicine [address] [address] Nino Palencia MD [address] [place] [address] Social History Tobacco Use Types Packs/Day Years [...] often do you attend chur ch or druze services? Never 10/17/2023 Do you belong to any clubs o r organizations such as presybeterian groups, unions, fraternal or athletic groups, or [...] place to sleep or slept in a custodial (including now)? No 10/17/2023 Sex Assigned at [...] on filedocumented in this encounter Care Teams Electric Dolly Operator Relationship Specialty Start Date End Date Nino Palencia MD [address] [place] [address] PCP - General Internal Medicine 07/07/15 06/24/22 Jose Alfredo Kiser MD [address] [place] [address] PCP - General Internal Medicine 06/25/22 documented as of this encounter
--- OUTSIDE RECORDS SUMMARY | 2024-10-26 12:41 | XMS_ITS | Encounter Summary ---
Author Organization [facility] Address [address] [place] [address] Care Team Providers Care Human Performance Professor Name Role Phone Rosetta Kiser MD Primary Care Prov ider Reason for Visit * Reason Onset Date Comments Medication Problem 09/23/2024 Encounter Details Date Type Department Care Team ([facility] Contact Info) Description 09/23/2024 Telephone Adult Medicine [facility] [address] [place] [phone] Rosetta Kiser MD [address] [place] [address] Medication Problem Social History Tobacco Use Types [...] was just discharged from the Hospital today [facility] for [facility] [phone] to CB if there was further questions. [...] AM EDT Office Visit Adult Medicine - [place] [address] [place] [address] Rosetta Kiser MD [address] [place] [address] 02/04/2025 10:10 AM EDT Office Visit [facility] [address] [place] [address] [place] [address] Angel Christensen NP [address] [place] [address] [address] [place] [place] [address] documented as of this encounter Visit Diagnoses Not on filedocumented in this encounter Care Teams Human Performance Professor Relationship Specialty Start Date End Date Rosetta Kiser MD [address] [place] [address] PCP - General Internal Medicine 09/02/24 documented as of this encounter
--- OUTSIDE RECORDS SUMMARY | 2024-10-26 12:41 | XMS_ITS | Encounter Summary ---
Author Organization [facility] Address [address] [place] [address] Care Team Providers Care Real Estate Analyst Name Role Phone Jose Alfredo Kiser MD Primary Care Provider [phone] [phone] Reason for Visit * Reason Onset Date Comments er follow up 02/25/2024 Encounter Details Date Type Department Care Team Description 02/25/2024 Telephone Adult [facility] [address] [place] [address] Jose Alfredo Kiser MD [address] [place] [address] er follow up Social History Tobacco Use Types [...] How often do you attend chur or catholic services? Never 10/17/2023 Do you belong to any clubs o r organizations such as methodist groups, unions, fraternal or athletic groups, or [...] Telephone Encounter - Olinda Mari M.A. - 02/25/2024 10:16 AM EDT Obtained notes and placed in providers inbox to review before appoinment on Saturday02/26/2024. * Telephone Encounter - Yolanda Goodman - 02/25/2024 8:56 AM EDT ER follow-up appointment booked YES If ER or UC follow up, can be booked with APC or MD. If hospital admission follow up MUST be booked with a physician Appointment time: 9:30AM Provider visit is scheduled with: lukasz comer[p Hospital/UC center patient was treated at: [facility] Date of visit: 02/24/2024 Was this only an ER/UC visit or was the patient admitted to the hospital? ER visit onlyER visit only If patient was admitted what was the date of discharge? N/A Reason/diagnosis for visit or stay: dehydration and diareah Was visit or stay related to an injury? NO If yes, what was the date of injury (DOI)? N/A If yes, was the injury due to N/A Tests performed: Lab: YES X-ray: NO EKG: NO Other tests. If yes, what?; CT documented in this encounter Plan of Treatment Not on file documented as of this encounter Visit Diagnoses Not on filedocumented in this encounter Care Teams Real Estate Analyst Relationship Specialty Start Date End Date Jose Alfredo Kiser, Formerly named [facility] [place] [address] PCP - General Internal Medicine 06/25/22 documented as of this encounter
--- OUTSIDE RECORDS SUMMARY | 2024-10-26 12:41 | XMS_ITS | Encounter Summary ---
Author Organization [facility] Address [address] [place] [address] Care Team Providers Care Manager Architectural Name Role Phone Nino Palencia MD Primary Care Provider [phone]- [phone] Jose Alfredo Kiser MD Primary Care Provider [phone] Reason for Visit * Reason Onset Date Comments Annual Wellness Outreach 03/07/2021 Encounter Details Date Type Department Care Team Description 03/07/2021 Telephone Adult Medicine [facility] [address] [place], [place] [phone] Nino Palencia MD [address] [place] [address] Annual Wellness Outreach Social History Tobacco Use Types Packs/Day Years [...] How often do you attend chur or yazdanism services? Never 10/17/2023 Do you belong to any clubs o r organizations such as baptist groups, unions, fraternal or athletic groups, or [...] place to sleep or slept in a fpc (including now)? No 10/17/2023 Sex Assigned at [...] encounter Miscellaneous Notes * Telephone Encounter - Isaac Back M.A. - 03/07/2021 1:47 PM EDT Mr. Mcclelland was contacted by telephone. . [facility] to call back [phone] documented in this encounter Plan of Treatment Not on file documented as of this encounter Visit Diagnoses Not on filedocumented in this encounter Care Teams Manager Architectural Relationship Specialty Start Date End Date Nino Palencia MD [address] [place] [address] PCP - General Internal Medicine 07/07/15 06/24/22 Jose Alfredo Kiser MD [address] [place] [address] PCP - General Internal Medicine 06/25/22 documented as of this encounter
--- OUTSIDE RECORDS SUMMARY | 2024-10-26 12:41 | XMS_ITS | Clinical Summary ---
Author Organization [facility] Address [address] [address] Phone Care Team Providers Care Telesales Consultant Name Role Phone Praveen Fournier PA-C Primary [...] Visit [facility] [address] [place] [address] Asim Lester MD [address] [facility] [address] [place] [address] Health Maintenance Due Date Last Done Comments Colorectal Cancer Screening: Annual FOBT 2001 Colorectal Cancer Screening: Colonoscopy 2001 Colorectal Cancer Screening: Sigmoidoscopy 2001 Hepatitis B Vaccine (1 of 3 - Risk 3-dose series) 2012 Pneumococcal Vaccine: 65+ Years Completed , 08/04/2018 Influenza Vaccine Completed 04/21/2024, , 05/15/2019, Additional history exists Insurance MEDIC[facility]ICARE [facility] MEDICARE [facility] [employer] OPEN ACCESS ([id number]) Care Teams Telesales Consultant Relationship Specialty Start Date End Date Praveen Fournier PA-C [address] [place] [address] PCP - General Physician Old Testament Professor 06/04/24
== END 2024-10-26 12:01 | disposition home or self-care (01) ==
LOC: HO.HNS 11:05
PROVIDERS: PCP Internal Medicine; Visit Provider Physician Assistant
DX: M48.062 Spinal stenosis, lumbar region with neurogenic claudication (principal)
CPT/HCPCS: 99024

== ENCOUNTER → 2024-10-26 11:22 | Outpatient (BNV) | payer MEDICARE, SELFPAY | PROVIDERS: PCP Internal Medicine; Visit Provider Radiology Diagnostic Radiology | DX: M47.815 Spondylosis without myelopathy or radiculopathy, thoracolumbar region (principal) | CPT/HCPCS: 72110 ==

== ENCOUNTER 2024-11-25 11:56 | Outpatient (REF) | payer MEDICARE, SELFPAY ==
--- NOTE | ~2024-11-25 | XR_ITS ---
CLINICAL HISTORY: M48.062 - Spinal stenosis, lumbar region with neurogenic claudication --- Additiona l Notes or Special Instructions: AP LAT FLEX EX 4 views lumbar spine Comparison: None Findings: L3-S1 posterior fusion with bipedicular screws. There are interbody metallic disc spacers at L3-4, L4-5 and L5-S1. The disc spacer at L5-S1 extends just beyond the anterior cortices of the vertebral bodies. 4 mm retrolisthesis L2 on L3 is stable in flexion and extension. No acute fractures or dislocation. No significant vertebral body compression deformity. Moderate to moderately severe narrowing with prominent endplate osteophytes at T12-L1, L1-2 and L2-3. Prominent aortic calcifications. IMPRESSION: 1. Postsurgical changes L3-S1. The metallic disc spacer at L5-S1 extends slightly beyond the adjacent anterior endplate cortices with unchanged positioning in neutral, flexion and extension. 2. Minimal grade 1 spondylolisthesis at L2-3 without instability. This document has been electronically signed by: Aracelis Dubon DO on 11/27/2024 14:38:01
--- OUTSIDE RECORDS SUMMARY | 2024-11-25 13:26 | XMS_ITS | Clinical Summary ---
Author Organization [facility] Address [address] [place] [address] Care Team Providers Care Program Manager Name Role Phone Rosetta Kiser MD [...] mouth 1 (one) time each day. Active atorvastatin (LIPITOR) 10 mg tablet TAKE [...] a day with meals. 60 each 5 5 Active omeprazole (PriLOSEC) [address] capsule TAKE 1 CAPSULE BY MOUTH EVERY DAY 90 capsule 1 5 Active magnesium oxide 250 mg magnesium tabletIndicatio ns:Abnormal level of blood mineral Take 1 tablet (250 mg total) by mouth 1 (one) time each day in the evening. 90 tablet 1 5 Active hydrALAZINE (APRESOLINE) 50 mg tablet Take 1 tablet (50 mg total) by mouth 3 (three) times a day. 270 tablet 5 Active hydrALAZINE (APRESOLINE) 25 mg tabletIndicatio ns:hypertension Take 1 tablet (25 mg total) by mouth 3 (three) times a day. 90 each 5 4 10/29/19 25 Discontinu ed(Reorder ) magnesium oxide 250 mg magnesium tabletIndicatio ns:Abnormal level of blood mineral TAKE 1 TABLET BY MOUTH EVERY DAY IN THE EVENING 90 tablet 1 4 10/29/19 25 Discontinu ed(Reorder ) hydrALAZINE (APRESOLINE) 25 mg tabletIndicatio ns:hypertension Take 1 tablet (25 mg total) by mouth 3 (three) times a day. 270 tablet 1 5 11/04/19 25 Discontinu ed(Formula ry change) hydrALAZINE (APRESOLINE) 50 mg tablet Take 1 tablet (50 mg total) by mouth 3 (three) times a day. 270 tablet 04/04/202 5 11/04/19 25 Discontinu ed(Therapy completed) Active Problems Problem Noted Date Diagnosed Date [...] Encounters Date Type Department Care Team Description 11/03/2024 9:30 AM EDT Office Visit Adult Medicine [address] [phone] Rosetta Monaco MD Essential hypertension (Primary Dx); Moderate episode of recurrent major depressive disorder (CMS/HCC V24, CMS/HCC V28) 10/09/2024 Telephone [facility] [address] [place] [phone] Zainab Pierce RN Holter results and med changes 09/30/2024 9:40 AM EST Office Visit [facility] [address] [place] [address] Angela Christensen NP Hypercholesterolemia (Primary Dx); Essential hypertension; Palpitations; Other chest pain 09/30/2024 8:00 AM EST Ancillary Procedure [facility] [address] [place] [address] Palpitations 09/23/2024 Telephone Adult [address] [phone] Rosetta Monaco MD Medication Problem 09/07/2024 2:30 PM EST Office Visit Adult [address] [phone] Rosetta Monaco MD Primary hypertension (Primary Dx); Chronic low back pain, unspecified back pain laterality, unspecified whether sciatica present; Chronic neck pain 09/03/2024 Telephone Adult [address] [phone] Claire Martinez ID 09/03/2024 Telephone Adult [facility] [address] [place] [address] Rosetta Monaco MD Appointment 09/02/2024 1:30 PM EST - 09/02/2024 11:59 PM EST Hospital Encounter [address] [phone] Impingement syndrome of left shoulder Discharge Disposition: Home or Self Care from Last 3 Months Immunizations Name Administration Dates Next Due Influenza Quadravalent, MDCK , 0.5ml, preservative free (Flucelvax) 6mo and older 05/21/2017,06/05/2016 Influenza Quadravalent, MDCK , 0.5ml, with preservative (Flucelvax) 6mo and older 05/15/2019 Influenza trivalent, 0.5mL ( Fluad) 65yo and older 04/21/2024,03/21/2020,05/12/2018,05/14 Influenza, Unspecified 05/21/2017,05/29/2016 Pfizer Covid-19 Bivalent, Or iginal + Ba.1 (Non-US Trademark COMIRNATY Bivalent) 04/12/2022 Pfizer SARS-CoV-2 COVID-19, mRNA, LNP-S, preservative free 05/16/2023 Pneumococcal conjugate 13 va lent (Prevnar 13, PCV13) 2mo and older 08/04/2018 Pneumococcal polysaccharide 23 valent (Pneumovax 23) 2yo and older 03/21/2020 Tdap Tetanus diptheria acell ular pertussis (Boostrix; Adacel) 7yo and older 01/17/2016 Zoster Live 01/13/2017 Surgical History Surgery Date Site/Laterality Comments CARPAL TUNNEL RELEASE 2011 PROCEDURE: [place] NEUROPLASTY &/TRANSPOS MEDIAN NRV CARPAL TUNNE COLONOSCOPY [...] Sign Reading Time Taken Comments Blood Pressure 182/104 11/03/2024 9:27 AM EDT Pulse 84 11/03/2024 9:27 AM EDT Temperature 36.6 ??C (97.8 ??F) 11/03/2024 9:27 AM ED T Respiratory Rate - - Oxygen Saturation 96% 09/30/2024 9:44 AM EST Inhaled Oxygen Concentration - - Weight 72.8 kg (160 lb 6.4 oz) 11/03/2024 9:27 A M EDT Height 162.6 cm (5' 4 ) 11/03/2024 9:27 AM EDT Body Mass Index 27.53 11/03/2024 9:27 AM EDT Plan of Treatment Upcoming Encounters Date Type Department Care Team (Late st Contact Info) Description 02/02/2025 9:30 AM EDT Office Visit Adult Medicine [facility] [address] [place] [address] Rosetta Kiser MD [address] [place] [address] 02/04/2025 10:10 AM EDT Office Visit [facility] [address] [place] [address] Angel Christensen NP [address] [place] [address] [address] [place] [address] Health Maintenance Due Date Last Done Comments Hepatitis A Vaccines (1 of 2 - Risk 2-dose series) 11/08/1971 Hepatitis B Vaccines (1 of 3 - Risk 3-dose series) 2012 RSV Immunization Adult Patients (1 - Risk 60-74 years 1-dose series) [...] age to complete this topic Meningococcal B Vaccine Aged Out No l onger eligible based on patient's age to complete [...] Diagnost ic Narrative 10/08/2024 9:54 AM EDT [facility] DIAGNOSTIC TESTING DEPARTMENT [address] [place] [address], [place] [address], [place] [address] TEL: FAX: Type of Test: 24 Hour [...] with no symptoms noted. us Angel Christensen NP [facility] C[facility]IAC SERVICES PROCEDU [...] Signed Date: 09/02/2024 21:54 ET Workstation ID: [id number] Transcribed By: Self Edit Transcribed Date: 09/02/2024 [...] Signed Date: 09/02/2024 21:54 ET Workstation ID: [id number] Transcribed By: Self Edit Transcribed Date: 09/02/2024 21:53 ET Dax MELISSA IMG XR PROCEDURES Final Result * (ABNORMAL) Comprehensive metabolic panel (06/23/2024 10:57 AM EST) Sodium 140 133 - 145 mmol/L LAB CHEMISTRY METHOD 06/23/2024 1:02 PM [facility] Potassium 3.9 3.5 - 5.5 mmol/L LAB CHEMISTRY METHOD 06/23/2024 1:02 PM [facility] Chloride 104 96 - 110 mmol/L LAB CHEMISTRY METHOD 06/23/2024 1:02 PM [facility] CO2 28 21 - 32 mmol/L LAB CHEMISTRY METHOD 06/23/2024 1:02 PM [facility] Anion Gap 8 3 - 11 LAB CHEMISTRY METHOD 06/23/2024 1:02 PM [facility] Glucose 84 70 - 100 mg/dL LAB CHEMISTRY METHOD 06/23/2024 1:02 PM [facility] BUN 32(H) 5 - 25 mg/dL LAB CHEMISTRY METHOD 06/23/2024 1:02 PM [facility] Creatinine 1.40(H) 0.70 - 1.30 mg/dL LAB CHEMISTRY METHOD 06/23/2024 1:02 PM [facility] eGFR 54(L) >=60 mL/min/1. 73m2 LAB CHEMISTRY METHOD 06/23/2024 1:02 PM [facility] Comment:Calculation based on the??Chronic Kidney Disease Epidemiology Collaboration (CKD-EPI) equation refit??without adjustment for race. BUN/Creatinine Ratio 22.9 LAB CHEMISTRY METHOD 06/23/2024 1:02 PM [facility] Calcium 9.7 8.5 - 10.5 mg/dL LAB CHEMISTRY METHOD 06/23/2024 1:02 PM [facility] AST (SGOT) 33 10 - 42 unit/L LAB CHEMISTRY METHOD 06/23/2024 1:02 PM [facility] ALT (SGPT) 41 10 - 60 unit/L LAB CHEMISTRY METHOD 06/23/2024 1:02 PM [facility] Alkaline Phosphatase 101 42 - 121 unit/L LAB CHEMISTRY METHOD 06/23/2024 1:02 PM [facility] Total Protein 7.4 6.0 - 8.0 g/dL LAB CHEMISTRY METHOD 06/23/2024 1:02 PM [facility] Albumin 3.9 3.2 - 5.0 g/dL LAB CHEMISTRY METHOD 06/23/2024 1:02 PM [facility] Total Bilirubin 0.6 0.0 - 1.4 mg/dL LAB CHEMISTRY METHOD 06/23/2024 1:02 PM [facility] Blood Venous blood specimen / Unknown Venipuncture / Unknown 06/23/2024 10:57 AM EST 06/23/2024 10:57 AM EST Rosetta Kiser MD LAB BLOOD ORDERABL ES Final Result [facility] [address] [place] [address], * (ABNORMAL) Lipid panel (04/24/2024) Pathologist [facility] LDL/HDL Ratio 3 0 - 4 Triglycerides 118 0 - 150 mg/dL Cholesterol 204(A) 0 - 200 mg/dL HDL 70 >=40 mg/dL LDL Cholesterol 111(A) 0 - 100 mg/dL Blood Venous blood specimen / Unknown Historical Provider LAB BLOOD ORDERABLES Ashley l Result * Abdominal Aortic Aneurysm Screen (03/02/2024) Pathologist [facility] Abdominal Aortic Aneurysm (AAA) Screening abstracted Anatomical Region Laterality Modality Other Historical Provider HEALTH MAINTENANCE Final Result * Hepatitis C Screening (01/08/2024) Hepatitis C Screening abstracted Historical Provider HEALTH MAINTENANCE Final Result * Colonoscopy (10/05/2015) Colonoscopy no interpretation , abstracted Anatomical Region Laterality Modality Other Historical Provider HEALTH MAINTENANCE Final Result from Last 3 Months or Most Recently Relevant to Health Maintenance Insurance MEDICARE [facility] Advance Directives Documents on File Type Date Recorded Patient Voyage Management System Operator Expl anation Health Care Decision (hx) 09/15/2019 [...] (hx) 09/11/2019 AD VERDIN DIRECTIVE Care Teams Program Manager Relationship Specialty Start Date End Date Rosetta Kiser MD [address] [place] [address] PCP - General Internal Medicine 09/02/24
--- OUTSIDE RECORDS SUMMARY | 2024-11-25 13:26 | XMS_ITS | Clinical Summary ---
Author Organization [facility] Address [address] [address] Phone Care Team Providers Care Embedded Systems Software Engineer Name Role Phone Praveen Fournier PA-C Primary [...] Visit [facility] [address] [place] [address] Asim Lester MD [address] [facility] [address] [place] [address] Health Maintenance Due Date Last Done Comments Colorectal Cancer Screening: Annual FOBT 2001 Colorectal Cancer Screening: Colonoscopy 2001 Colorectal Cancer Screening: Sigmoidoscopy 2001 Hepatitis B Vaccine (1 of 3 - Risk 3-dose series) 2012 Pneumococcal Vaccine: 50+ Years Completed , 08/04/2018 Pneumococcal Vaccine: Peds ( 0 to 5 Years) and At-Risk Patients (6 to 49 Years) Discontinued 03/21/2020, 08/04/2018 Influenza Vaccine Completed 04/21/2024, , 05/15/2019, Additional history exists Insurance Medicare [facility] Medicare [facility] Medicare [facility] Cig Open Access ([id number]) Care Teams Embedded Systems Software Engineer Relationship Specialty Start Date End Date Praveen Fournier PA-C [address] [place] [id number] PCP - General Physician Shipping Clerk 06/04/24
== END 2024-11-25 11:57 | disposition home or self-care (01) ==
LOC: HO.HOSX 11:56
PROVIDERS: Visit Provider Physician Assistant
DX: M48.062 Spinal stenosis, lumbar region with neurogenic claudication (principal); Z98.1 Arthrodesis status
CPT/HCPCS: 72110; 99212

== ENCOUNTER → 2024-11-25 14:24 | Outpatient (BNV) | payer MEDICARE, SELFPAY | PROVIDERS: Visit Provider Radiology Diagnostic Radiology | DX: M48.062 Spinal stenosis, lumbar region with neurogenic claudication (principal) | CPT/HCPCS: 72110 ==

== ENCOUNTER 2024-11-25 14:29 | Outpatient (AMB) | payer MEDICARE, SELFPAY ==
--- NOTE | 2024-11-25 14:52 | A.SPINEOV_ITS ---
Intake Visit Reasons: 2nd post op with Xrays Intake Note: Mr. Mcclelland is here today for his 2nd post op with x-rays. Application Security Developer Required: No Allergies No Known Allergies Allergy (Verified 11/25/24 14:53) Assessment & Plan Assessment & Plan (1) S/P lumbar spinal fusion: Code(s): Z98.1 - Arthrodesis status Category: Surgical Plan Luis Enrique is a pleasant 74-year-old male who underwent L3-4, L4-5 and L5-S1 OLIF with Dr. Paz a little over 2 months ago. To recap he was seen for a non scheduled visit in clinic about a month ago after a fall sustained at home when attempting to catch his who had a syncopal episode. He had some exacerbation of pain, but reports this pain has since resolved. He has been completing his activities of daily living without much issue, and has also began resuming yd work again. He most recently was able to mow his lawn with a self- propelled push mower. We reviewed his x-ray imaging during this visit which shows stable placement of the surgical construct with no changes from previous imaging noted. No new neurological deficits. The patient ambulates well and rises from a seated position without difficulty. I would like to order a CT scan of the lumbar spine to be completed 10 months out from surgery to evaluate for fusion progress. I will follow up with him again a year out from surgery for his final postoperative visit. Dillan Paz MD,PhD [facility] Orders: Orders XR lumbar spine 4V min Today M48.062 - Spinal stenosis, lumbar region with neurogenic claudication CT lumbar spine wo IV con 07/07/25 Z98.1 - Arthrodesis status Coding Level of Care Code Global (00322) Diagnoses S/P lumbar spinal fusion Z98.1
--- OUTSIDE RECORDS SUMMARY | 2024-11-25 15:47 | XMS_ITS | Clinical Summary ---
Author Organization [facility] Address [address] [place] [address] Care Team Providers Care Manager Game Name Role Phone Rosetta Kiser MD Primary [...] 9:30 AM EDT Office Visit Adult Medicine [address] [phone] Rosetta Monaco MD Essential hypertension (Primary Dx); Moderate episode of recurrent major depressive disorder (CMS/HCC V24, CMS/HCC V28) 10/09/2024 Telephone [facility] Cardiology [facility] [address] [place] [phone] Zainab Pierce RN Holter results and med changes 09/30/2024 9:40 AM EST Office Visit [facility] Cardiology [facility] [address] [place] [address] Angela Christensen NP Hypercholesterolemia (Primary Dx); Essential hypertension; Palpitations; Other chest pain 09/30/2024 8:00 AM EST Ancillary Procedure [facility] Cardiology [facility] [address] [place] [address] Palpitations 09/23/2024 Telephone Adult [address] [phone] Rosetta Monaco MD Medication Problem 09/07/2024 2:30 PM EST Office Visit Adult [address] [phone] Rosetta Monaco MD Primary hypertension (Primary Dx); Chronic low back pain, unspecified back pain laterality, unspecified whether sciatica present; Chronic neck pain 09/03/2024 Telephone Adult [address] [phone] Claire Martinez [place] 09/03/2024 Telephone Adult [facility] [address] [place] [address] Rosetta Monaco MD Appointment 09/02/2024 1:30 PM EST - 09/02/2024 11:59 PM EST Hospital Encounter [address] [phone] Impingement syndrome of left shoulder Discharge Disposition: [...] Site/Laterality Comments CARPAL TUNNEL RELEASE 2011 PROCEDURE: [place] NEUROPLASTY &/TRANSPOS MEDIAN NRV CARPAL TUNNE COLONOSCOPY [...] EDT Office Visit Adult Medicine [facility] [address] [place] [address] Rosetta Kiser MD [address] [place] [address] 02/04/2025 10:10 AM EDT Office Visit [facility] [address] [place] [address] Angel Christensen NP [address] [place] [address] [address] [place] [address] Health Maintenance Due Date Last Done Comments [...] [facility] [address] [place] [address], [place] [address], [place] [address] TEL: FAX: Type of Test: 24 Hour [...] Signed Date: 09/02/2024 21:54 ET Workstation ID: [id number] Transcribed By: Self Edit Transcribed Date: 09/02/2024 [...] Signed Date: 09/02/2024 21:54 ET Workstation ID: [id number] Transcribed By: Self Edit Transcribed Date: 09/02/2024 21:53 ET Dax MELISSA IMG XR PROCEDURES Final Result * (ABNORMAL) Comprehensive metabolic panel (06/23/2024 10:57 AM EST) Sodium 140 133 - 145 mmol/L LAB CHEMISTRY METHOD 06/23/2024 1:02 PM [facility] Potassium 3.9 3.5 - 5.5 mmol/L LAB CHEMISTRY METHOD 06/23/2024 1:02 PM [facility] Chloride 104 96 - 110 mmol/L LAB CHEMISTRY METHOD 06/23/2024 1:02 PM [facility] CO2 28 21 - 32 mmol/L LAB CHEMISTRY METHOD 06/23/2024 1:02 PM [facility] Anion Gap 8 3 - 11 LAB CHEMISTRY METHOD 06/23/2024 1:02 PM [facility] Glucose 84 70 - 100 mg/dL LAB CHEMISTRY METHOD 06/23/2024 1:02 PM [facility] BUN 32(H) 5 - 25 mg/dL LAB CHEMISTRY METHOD 06/23/2024 1:02 PM [facility] Creatinine 1.40(H) 0.70 - 1.30 mg/dL LAB CHEMISTRY METHOD 06/23/2024 1:02 PM [facility] eGFR 54(L) >=60 mL/min/1. 73m2 LAB CHEMISTRY METHOD 06/23/2024 1:02 PM [facility] Comment:Calculation based on the??Chronic Kidney Disease Epidemiology Collaboration (CKD-EPI) equation refit??without adjustment for race. BUN/Creatinine Ratio 22.9 LAB CHEMISTRY METHOD 06/23/2024 1:02 PM [facility] Calcium 9.7 8.5 - 10.5 mg/dL LAB CHEMISTRY METHOD 06/23/2024 1:02 PM [facility] AST (SGOT) 33 10 - 42 unit/L LAB CHEMISTRY METHOD 06/23/2024 1:02 PM [facility] ALT (SGPT) 41 10 - 60 unit/L LAB CHEMISTRY METHOD 06/23/2024 1:02 PM [facility] Alkaline Phosphatase 101 42 - 121 unit/L LAB CHEMISTRY METHOD 06/23/2024 1:02 PM [facility] Total Protein 7.4 6.0 - 8.0 g/dL LAB CHEMISTRY METHOD 06/23/2024 1:02 PM [facility] Albumin 3.9 3.2 - 5.0 g/dL LAB CHEMISTRY METHOD 06/23/2024 1:02 PM [facility] Total Bilirubin 0.6 0.0 - 1.4 mg/dL LAB CHEMISTRY METHOD 06/23/2024 1:02 PM [facility] Blood Venous blood specimen / Unknown Venipuncture / Unknown 06/23/2024 10:57 AM EST 06/23/2024 10:57 AM EST Rosetta Kiser MD LAB BLOOD ORDERABL ES Final Result [facility] [address] [place] [address], * (ABNORMAL) Lipid panel (04/24/2024) Pathologist [facility] LDL/HDL Ratio 3 0 - 4 Triglycerides 118 0 - 150 mg/dL Cholesterol 204(A) 0 - 200 mg/dL HDL 70 >=40 mg/dL LDL Cholesterol 111(A) 0 - 100 mg/dL Blood Venous blood specimen / Unknown Historical Provider LAB BLOOD ORDERABLES Ashley l Result * Abdominal Aortic Aneurysm Screen (03/02/2024) Pathologist [facility] Abdominal Aortic Aneurysm (AAA) Screening abstracted [...] Recently Relevant to Health Maintenance Insurance MEDICARE [facility] Advance Directives Documents on File Type Date Recorded Patient Vocational Childcare Teacher Expl anation Health Care Decision (hx) 09/15/2019 [...] (hx) 09/11/2019 AD VERDIN DIRECTIVE Care Teams Manager Game Relationship Specialty Start Date End Date Rosetta Kiser MD [address] [place] [address] PCP - General Internal Medicine 09/02/24
--- OUTSIDE RECORDS SUMMARY | 2024-11-25 15:47 | XMS_ITS | Clinical Summary ---
Author Organization [facility] Address [address] [address] Phone Care Team Providers Care Vest Front Presser Name Role Phone Praveen Fournier PA-C Primary [...] Visit [facility] [address] [place] [address] Asim Lester MD [address] [facility] [address] [place] [address] Health Maintenance Due Date Last [...] , 05/15/2019, Additional history exists Insurance Medicare [facility] Medicare [facility] Medicare [facility] Cig Open Access ([id number]) Care Teams Vest Front Presser Relationship Specialty Start Date End Date Praveen Fournier PA-C [address] [place] [id number] PCP - General Physician Hitch Technician 06/04/24
== END 2024-11-25 15:04 | disposition home or self-care (01) ==
LOC: HO.HNS 14:30
PROVIDERS: PCP Internal Medicine; Visit Provider Physician Assistant
DX: Z98.1 Arthrodesis status (principal)
CPT/HCPCS: 99024

== ENCOUNTER 2025-07-14 10:17 | Outpatient (AMB) | payer MEDICARE, SELFPAY ==
--- OUTSIDE RECORDS SUMMARY | 2025-07-13 15:30 | XMS_ITS | Encounter Summary ---
Author Organization [facility] Address [address] [place] [address] Care Team Providers Care Fractionation Plant Supervisor Name Role Phone Rosetta Kiser MD Primary Care Prov ider Reason for Referral * Imaging (Routine) - Authorized Specialty Diagnoses / Procedures Referred By Contac t Referred To Contact Cardiovascular Disease Diagnoses Hypertension, unspecified type Chronic congestive heart failure, unspecified heart failure type (HC Code) (HC CODE) Abnormal ECG Procedures NM Myocardial Perfusion SPECT (Stress and Rest) with Exercise Dougie Ramsey MD [address] [place] [address] Phone: tel: fax: Referral ID Status Reason Start Date Expiration Date V isits Requested Visits Authorized [id number] Authorized 07/13/2025 07/13/2026 1 1 * Imaging (Routine) - Authorized Specialty Diagnoses / Procedures [facility]erred To Contact Cardiovascular Disease Diagnoses Hypertension, unspecified type Chronic congestive heart failure, unspecified heart failure type (HC Code) (HC CODE) Abnormal ECG Procedures Echocardiogram Complete (TTE) HC XR 3D RENDERING W/INTERP W/O POSTPROCESS HC XR 3D RENDERING W/POSTPROCESS HC MYOCRD STRAIN IMG SPCKL TRCK IN ECHO HEART XTHORACIC,COMPLETE W DOPPLER HC ECHO 2D W/ SPEC/COLOR FLOW M-MODE COMPL Dougie Ramsey MD [address] [place] [address] Phone: tel: fax: Referral ID Status Reason Start Date Expiration Date V isits Requested Visits Authorized [id number] Authorized 07/13/2025 07/13/2026 1 1 * Imaging (Routine) - Authorized Specialty Diagnoses / Procedures Referred By Contac t Referred To Contact Cardiovascular Disease Diagnoses Hypertension, unspecified type Chronic congestive heart failure, unspecified heart failure type (HC Code) (HC CODE) Abnormal ECG Procedures Holter Monitor - 24 Hour Dougie Ramsey MD [address] [place] [address] Phone: tel: fax: Referral ID Status Reason Start Date Expiration Date V isits Requested Visits Authorized [id number] Authorized 07/13/2025 07/13/2026 1 1 Encounter Details Date Type Department Care Team (Late st Contact Info) Description 07/13/2025 3:30 PM EST Office Visit [facility] [place] [address] [place] [address] Dougie Ramsey MD [address] [place] [address] Abnormal ECG (Primary Dx); Hypertension, unspecified type; Chronic congestive heart failure, unspecified heart failure type (HC Code) (HC CODE) Social History Tobacco Use Types Packs/Day Years Used Date Smoking Tobacco: Every Day Cigars Tobacco Cessation:Ready to Q uit: Not Asked; Counseling Given: Not Answered Alcohol Use Standard Drinks/Week Comments Not Currently 0 (1 standard drink = 0.6 oz pur e alcohol) Interpersonal Safety Answer Date Record ed Is there anyone in your life that is hurting or threatening you in anyway? no 06/09/2025 Physical Indicators of Abuse No evidence of phys ical abuse 06/09/2025 Sex and Gender Information Value Date Recorded Sex Assigned at Male 06/09/2025 1:53 PM EST Legal Sex Male 7:53 PM EST Gender Identity Choose not to disclose 1:53 PM EST Sexual Orientation Not on file documented as of this encounter Last Filed Vital Signs Vital Sign Reading Time Taken Comments Blood Pressure 217/105 07/13/2025 4:30 PM EST Pulse 86 07/13/2025 4:30 PM EST Temperature - - Respiratory Rate - - Oxygen Saturation - - Inhaled Oxygen Concentration - - Weight 65.8 kg (145 lb) 07/13/2025 4:30 PM EST Height 167.6 cm (5' 6 ) 07/13/2025 4:30 PM EST Body Mass Index 23.4 07/13/2025 4:30 PM EST documented in this encounter Patient Instructions * Patient Instructions* Dougie Ramsey MD - 07/13/2025 3:30 PM EST Increase atorvastatin from 10 mg to 20 mg for better cholesterol control Increase hydralazine from 50 mg to 100 mg 3 times per day for better blood pressure control Increase carvedilol 12.5 mg 3 times per day to 25 mg twice per day for better blood pressure control We will check a Holter monitor, a stress test, and an echocardiogram documented in this encounter Plan of Treatment Upcoming Encounters Date Type Department Care Team (Late st Contact Info) Description 07/19/2025 8:00 AM EST Appointment Cardiac Services [address] [address] Dougie Ramsey MD [address] [place] [address] 07/21/2025 9:30 AM EST Appointment Card[facility] Services [address] [address] Dougie Ramsey MD [address] [place] [address] 08/28/2025 9:00 AM EST Appointment [facility] [address] [address] Dougie Ramsey MD [address] [place] [address] Scheduled Orders Name Type Priority Associated Diagnoses Order Schedule Holter Monitor - 24 Hour Cardiac Event Monitor Routine Hypertension, unspecified type Chronic congestive heart failure, unspecified heart failure type (HC Code) (HC CODE) Abnormal ECG Expected: 07/13/2025, Expires: 07/13/2026 Echocardiogram Complete (TTE) Echocardiography Routine Hypertension, unspecified type Chronic congestive heart failure, unspecified heart failure type (HC Code) (HC CODE) Abnormal ECG Expected: 07/13/2025, Expires: 07/13/2026 NM Myocardial Perfusion SPECT (Stress and Rest) with Exercise Card[facility] Services L3: 2-4 weeks Hypertension, unspecified type Chronic congestive heart failure, unspecified heart failure type (HC Code) (HC CODE) Abnormal ECG Expected: 07/13/2025, Expires: 07/13/2026 documented as of this encounter Procedures Procedure Name Priority Date/Time Associated Diagnosis Comments EKG Routine 07/13/2025 4:36 PM EST Hypertension, unspecified type Chronic congestive heart failure, unspecified heart failure type (HC Code) (HC CODE) documented in this encounter Results * EKG (07/13/2025 4:36 PM EST) Heart Rate 86 bpm PROFESSOR OF SOCIOLOGY EKG QRS Interval 94 ms PROFESSOR [employer] SOCIOLOGY EKG QT Interval 406 ms PROFESSOR [employer] SOCIOLOGY EKG QTC Interval 485 ms PROFESSOR OF SOCIOLOGY EKG P Palmer 54 deg PROFESSOR OF SOCIOLOGY EKG QRS Palmer -23 deg PROFESSOR OF SOCIOLOGY EKG T Wave Palmer 75 deg PROFESSOR OF SOCIOLOGY EKG P-R Interval 130 msec PROFESSOR OF SOCIOLOGY EKG SEVERITY Abnormal ECG severity PROFESSOR [employer] SOCIOLOGY EKG Comment::Sinus rhythm with o ccasional premature ventricular complexes:Possible Left atrial enlargement:Left ventricular hypertrophy:Cannot rule out Septal infarct, age undetermined:Electronically Signed On 07-13-2025 16:51:42 EST by Dougie Ramsey MD OTHER / Unknown 07/13/2025 4 :36 PM EST us Dougie Ramsey MD ECG ORDERABLES Final Result PROFESSOR [employer] SOCIOLOGY EKG documented in this encounter Visit Diagnoses Diagnosis Abnormal ECG- Primary Nonspecific abnormal electrocardiogram (ECG) (EKG) Hypertension, unspecified type Chronic congestive heart failure, unspecified heart failure type (HC Code) (HC CODE) documented in this encounter Care Teams Fractionation Plant Supervisor Relationship Specialty Start Date End Date Rosetta Kiser MD [address] [place] [phone] PCP - General Internal Medicine 06/09/25 documented as of this encounter
[2025-07-14 10:25] VITALS: BMI 24.5
--- NOTE | 2025-07-14 10:25 | A.PHYSOV_ITS ---
Vital Signs 07/14/25 10:25 Height 5 ft 5 in Weight 147 lb BMI 24.5 Intake Visit Reasons: LEFT SHOULDER INJECTION Intake Note: Patient is a 74 year old male here today for a left shoulder injections. Allergies No Known Allergies Allergy (Verified 07/14/25 10:26) [facility] Medical History Hypercholesterolemia Ulnar nerve neuropathy Psoriasis Tobacco use disorder History of varicocele Hx of hydrocele C. difficile colitis Anemia HOMA (acute kidney injury) Hepatitis Scoliosis Habitual snoring Pneumonia Diverticulosis History of alcohol abuse Depression Arthritis Back pain Atrial enlargement, bilateral Lumbar radiculopathy GERD (gastroesophageal reflux disease) Hyperlipidemia Hypertension Nicotine dependence, cigarettes, uncomplicated Surgical History History of hydrocelectomy H/O colonoscopy History of carpal tunnel release History of hernia repair Social History Household Members: Significant Other Housing: House Are you a primary early breastfeeding care specialist to a significant other at home: No Do you presently have visiting nurse or other home services: No Patient Tobacco Use Status: Current everyday Tobacco user Tobacco use type: Cigar e-Cigarette/Vaping Use: Never Used Substance Use Type: Marijuana service: No Physical Exam Vital Signs: BMI result Body Mass Index 24.5 Office Procedures AMB Shoulder Injection AMB Shoulder Injection Procedure Details: Left Glenohumeral joint injection: The patient was educated about risks, complications and benefits including but not limited to increased serum glucose, infection, nerve damage, bleeding, tendon/ligament damage and pain. We agree with a glenohumeral injection is the next best step in the treatment plan. Verbal consent was obtained. Using aseptic technique, the skin was cleansed with Betadine. Ethyl chloride was used to desensitize the skin. Using a posterior approach, 40 mg of Kenalog and 3 mL 2% lidocaine were injected using a 25-gauge inch and a half needle into the joint. The patient tolerated the procedure well without immediate complication. Postinjection instructions were given. Shoulder Injection - : Left All charges added?: Procedure code (CPT) selection complete AMB Thumb CMC Injection AMB Thumb Injection Details: [Left First carpal metacarpal joint injection: Patient was educated about the risks complications and benefits of cortisone injection which include but are not limited to increase in glucose, infection, darkening in pigmentation, fat atrophy, ligament and tendon damage, bleeding and nerve damage. The patient's questions were answered at this time. Verbal consent was given to proceed. The patient was cleansed over the carpal metacarpal joint dorsally with Betadine. I then used ethyl chloride to anesthetize the skin. Using a 25-gauge needle I injected 20 mg of Kenalog and 0.5 mL 2% lidocaine into the first metacarpal joint. The area was then cleansed with an alcohol prep and a Band-Aid was applied. The patient tolerated the procedure well without immediate complication. [facility] Injection - : Left All charges added?: Procedure code (CPT) selection complete Office Meds Kenalog 40 mg/mL suspension for injection Performing Provider: SHIN Rowe Performing Location: [facility] Administered by: SHIN Rowe on 07/15/25 10:09 Dose Route Admin Location Dispensed Lot Number Expiration Date [facility] Contingents Supervisor 40 mg intra-articular 1 mL [id number] [employer] Total Dispensed Waste 1 mL 0 % lidocaine (PF) 20 mg/mL (2 %) injection solution Performing Provider: SHIN Rowe Performing Location: [facility] Administered by: SHIN Rowe on 07/15/25 10:09 Dose Route Admin Location Dispensed Lot Number Expiration Date [facility] Contingents Supervisor 60 mg intra-articular 5 mL [id number] [facility] Total Dispensed Waste 5 mL 40 % Kenalog 40 mg/mL suspension for injection Performing Provider: SHIN Rowe Performing Location: [facility] Administered by: SHIN Rowe on 07/15/25 10:09 Dose Route Admin Location Dispensed Lot Number Expiration Date [facility] Contingents Supervisor 20 mg intra-articular 1 mL [id number] [employer] Total Dispensed Waste 1 mL 50 % lidocaine (PF) 20 mg/mL (2 %) injection solution Performing Provider: SHIN Rowe Performing Location: [facility] Administered by: SHIN Rowe on 07/15/25 10:09 Dose Route Admin Location Dispensed Lot Number Expiration Date [facility] Contingents Supervisor 20 mg intra-articular 5 mL [id number] [facility] Total Dispensed Waste 5 mL 80 % Assessment & Plan Assessment & Plan (1) Primary osteoarthritis, left shoulder: Code(s): M19.012 - Primary osteoarthritis, left shoulder Category: Medical (2) Osteoarthritis of carpometacarpal (CMC) joint of left thumb: Code(s): M18.12 - Unilateral primary osteoarthritis of first carpometacarpal joint, left hand Category: Medical Qualifiers: Osteoarthritis type: primary Qualified Code(s): M18.12 - Unilateral primary osteoarthritis of first carpometacarpal joint, left hand Plan Mr. Mcclelland is a 74-year-old male seen in evaluation today for left glenohumeral joint osteoarthritis as well as left 1st CMC osteoarthritis. Today consented to corticosteroid injection. He was given post-injection in structions, recommend cold or moist heat compresses for 15 minutes up to 5 times daily. Continue his home exercise plan and medications as prescribed. Follow- up with our office as needed Thank you for allowing me to participate in the care of your patient. Orders: Orders AMB Shoulder Injection 07/14/25 M19.012 - Primary osteoarthritis, left shoulder AMB Thumb CMC Injection 07/14/25 M18.12 - Unilateral primary osteoarthritis of first carpometacarpal joint, left hand Coding Level of Care Code Procedure Only Diagnoses Primary osteoarthritis, left shoulder M19.012 Primary osteoarthritis of first carpometacarpal joint of left hand M18.12 Osteoarthritis type: primary CPT Codes AMB Shoulder Injection - Hip/Bursa Injection - : Left ([id number]) AMB Thumb Injection - Carpal Tunnel Therapeutic Injection - : Left ([id number])
--- OUTSIDE RECORDS SUMMARY | 2025-07-14 12:39 | XMS_ITS | Clinical Summary ---
Author Organization [id number] [facility] Address [address] [place] [address] Care Team Providers Care Headlight Assembler Name Role Phone Rosetta Kiser MD Primary Care Prov ider Allergies No known active allergies Medications atorvastatin (LIPITOR) 10 mg tablet Take 1 tablet (10 mg total) by mouth daily. 5 Active OMEGA-3 FATTY ACIDS-FISH OIL ORAL Take by mouth daily. Active aspirin 81 mg EC delayed release tablet Take 1 tablet (81 mg total) by mouth daily. Active buPROPion XL (WELLBUTRIN XL) 150 mg 24 hr tablet Take 1 tablet (150 mg total) by mouth daily. Active buPROPion XL (WELLBUTRIN XL) 300 mg 24 hr tablet Take 1 tablet (300 mg total) by mouth daily. 5 Active escitalopram oxalate (LEXAPRO) 20 mg tablet Take 1 tablet (20 mg total) by mouth daily. 5 Active ferrous sulfate (FEOSOL) 325 mg (65 mg iron) tablet Take 1 tablet (325 mg total) by mouth 2 (two) times daily. 5 Active magnesium oxide 250 mg magnesium tablet TAKE 1 TABLET BY MOUTH ONE TIME EACH DAY IN THE EVENING 4 Active carvediloL (COREG) 12.5 mg Immediate Release tablet Take 1 tablet (12.5 mg total) by mouth 2 (two) times daily with breakfast and dinner. 5 03/23/20 26 Active furosemide (LASIX) 40 mg tablet Take 1 tablet (40 mg total) by mouth daily. 30 tablet 5 Active furosemide (LASIX) 20 mg tablet Take 1 tablet (20 mg total) by mouth daily. 5 Active omeprazole (PRILOSEC) 20 mg capsule Take 1 capsule (20 mg total) by mouth daily. 5 Active dilTIAZem CD (CARDIZEM CD) 120 mg 24 hr capsule Take 1 capsule (120 mg total) by mouth. 5 12/14/19 26 Active docusate sodium (COLACE) 100 mg capsule Take 1 capsule (100 mg total) by mouth 2 (two) times daily. 5 Active hydrALAZINE (APRESOLINE) 50 mg tablet Take 1 tablet (50 mg total) by mouth 3 (three) times daily. Active carvedilol (COREG) 3.125 mg Immediate Release tablet Take 1 tablet (3.125 mg total) by mouth 2 (two) times daily. Take with meals. 07/13/20 25 Discontinue d(!Delete Cleanup (No Cancel Msg)) Active Problems No known active problems Encounters Date Type Department Care Team Description 07/13/2025 3:30 PM EST Office Visit [facility], [place] [address] Dougie Ramsey MD Abnormal ECG (Primary Dx); Hypertension, unspecified type; Chronic congestive heart failure, unspecified heart failure type (HC Code) (HC CODE) 06/09/2025 12:53 PM EST - 06/09/2025 4:05 PM EST Emergency [facility] Emergency Department [address] [place] [address] Kalli Newman MD Hypertension, unspecified type (Primary Dx); Chronic congestive heart failure, unspecified heart failure type (HC Code) (HC CODE) Discharge Disposition: Home or Self Care 06/01/2025 10:15 AM EST Office Visit [facility] [place] [address] Arabella Day PA Localized swelling on right hand (Primary Dx); Gouty arthritis of hand 06/01/2025 Results Follow-Up [facility] [address] [place] [address] Arabella Day PA CBC and differential, URIC ACID, Comprehensive metabolic panel from Last 3 Months Social History Tobacco Use Types Packs/Day Years [...] PM EST Sexual Orientation Not on file Last Filed Vital Signs Vital Sign Reading Time Taken Comments Blood Pressure 217/105 07/13/2025 4:30 PM EST Pulse 86 07/13/2025 4:30 PM EST Temperature 36.8 C (98.3 F) 06/09/2025 2:18 PM EST Respiratory Rate 20 06/09/2025 2:18 PM EST Oxygen Saturation 97% 06/09/2025 2:18 PM EST Inhaled Oxygen Concentration - - Weight 65.8 kg (145 lb) 07/13/2025 4:30 PM EST Height 167.6 cm (5' 6 ) 07/13/2025 4:30 PM EST Body Mass Index 23.4 07/13/2025 4:30 PM EST Plan of Treatment Upcoming Encounters Date Type Department Care Team (Late st Contact Info) Description 07/19/2025 8:00 AM EST Appointment [facility] [place] [address] [place] [address] Dougie Ramsey MD [address] [place] [address] 07/21/2025 9:30 AM EST Appointment [facility] [place] [address] [place] [address] Dougie Ramsey MD [address] [place] [address] 08/28/2025 9:00 AM EST Appointment [facility] [place] [address] [place] [address] Dougie Ramsey MD [address] [place] [address] Health Maintenance Due Date Last Done Comments HIV screening 1965 Hepatitis C screening 1970 Lipid disorder screening 1992 Colon cancer screening, Colonoscopy 1997 Lung Cancer Screening 2002 RSV Immunization (1 - Risk 50-74 years 1-dose series) 2002 Shingles vaccine (Shingrix) (1 of 2 - Shingrix (RZV) 2 Dose Standard Series) 2002 Aortic Aneurysm screening 2017 Influenza vaccine 02/26/2025 04/21/2024, , 05/15/2019, Additional history exists Covid-19 vaccine series ( season) 2025 05/16/2023, 05/09/2021, 2020, Additional history exists Tetanus adult (Td q 10,TDAP once) 01/16/2026 01/17/2016 Diabetes screening 06/09/2028 06/09/2025, 06/01/2025 Pneumococcal Vaccine (50+ years) Completed 03/21/2020, 08/04/2018 Meningococcal B Vaccine Aged Out No l onger eligible based on patient's age to complete this topic Meningococcal Vaccine Aged Out No orlando renata eligible based on patient's age to complete this topic Procedures Procedure Name Priority Date/Time Associated Diagnosis Comments EKG Routine 07/13/2025 4:36 PM EST Hypertension, unspecified type Chronic congestive heart failure, unspecified heart failure type (HC Code) (HC CODE) TROPONIN T HIGH SENSITIVITY, 1 HOUR WITH REFLEX ( GH LMW YH) STAT - Timed 06/09/2025 2:39 PM EST XR CHEST PA AND LATERAL Within 1 hour (STAT) 06/09/2025 12:43 PM EST COMPREHENSIVE METABOLIC PANEL Routine 06/09/2025 12:35 PM EST CBC AND DIFFERENTIAL STAT 06/09/2025 12:35 PM EST COMPREHENSIVE METABOLIC PANEL Routine 06/09/2025 12:35 PM EST CBC WITH AUTO DIFFERENTIAL STAT 06/09/2025 12:35 PM EST NT-PROBRAIN NATRIURETIC PEPTIDE STAT 06/09/2025 12:35 PM EST TROPONIN T HIGH SENSITIVITY, 0 HOUR BASELINE WITH REFLEX (BH GH LMW YH) STAT 06/09/2025 12:35 PM EST EKG Routine 06/09/2025 12:30 PM EST CARDIAC EKG RESULT SCAN 06/09/2025 12:00 AM EST COMPREHENSIVE METABOLIC PANEL Routine 06/01/2025 10:30 AM EST Localized swelling on right hand Gouty arthritis of hand CBC AND DIFFERENTIAL Routine 06/01/2025 10:30 AM EST Localized swelling on right hand Gouty arthritis of hand URIC ACID Routine 06/01/2025 10:30 AM EST Localized swelling on right hand Gouty arthritis of hand from Last 3 Months Results * EKG (07/13/2025 4:36 PM EST) Only the most recent of2 resultswithin the time period is included. Heart Rate 86 bpm ME[facility]ER EKG QRS Interval 94 ms ME[facility]ER EKG QT Interval 406 ms ME[facility]ER EKG QTC Interval 485 ms MEAT [facility]CHER EKG P [place] 54 deg MEAT [facility]ER EKG QRS [place] -23 deg MEAT [facility]ER EKG T Wave [place] 75 deg MEAT BUTCHER EKG P-R Interval 130 msec ME[facility] EKG SEVERITY Abnormal ECG severity [facility] EKG Comment::Sinus rhythm with o ccasional premature ventricular complexes:Possible Left atrial enlargement:Left ventricular hypertrophy:Cannot rule out Septal infarct, age undetermined:Electronically Signed On 07-13-2025 16:51:42 EST by Dougie Ramsey MD OTHER / Unknown 07/13/2025 4 :36 PM EST us Dougie Ramsey MD ECG ORDERABLES Final Result [facility] EKG * (ABNORMAL) Troponin T High Sensitivity, 1 Hour With Reflex (BH GH LMW YH) (06/09/2025 2:39 PM EST) High Sensitivity Troponin T 52(H) See Comment ng/L 06/09/2025 3:32 PM EST [facility] Comment:High Sensitivity Tro ponin T levels should be interpreted in the context of the [facility] Care Signature pathway. 1 hour Delta from 0 Hour, HS-Troponin T -2 ng/L 06/09/2025 3:32 PM EST [facility] Blood Venipuncture / Unknown 06/09/2025 2:39 PM EST 06/09/2025 2:56 PM EST us Blanquita Vera MD LAB BLOOD ORDERABLES Final Resu lt Performing Organization Address City/[facility]/ZIP Co de Phone Number [address] [phone] * CXR (06/09/2025 12:43 PM EST) Anatomical Region Laterality Modality Chest Computed Radiogr aphy 06/09/2025 12:5 3 PM EST Impressions 06/09/2025 12:54 PM EST No acute cardiothoracic abnormality. [facility] Radiology Notify System Classification: Routine. Reported and signed by: Mak Wells MD Narrative 06/09/2025 12:54 PM EST XR CHEST PA AND LATERAL INDICATION: chest pain COMPARISON: NONE FINDINGS: The cardiomediastinal silhouette is normal. The lungs are clear. The pleural spaces are clear. There is no acute osseous injury. Lumbar fusion hardware is partially visualized. Degenerative changes in the spine. Procedure Note Mak Wells MD - 06/09/2025 XR CHEST PA AND LATERAL INDICATION: chest pain COMPARISON: NONE FINDINGS: The cardiomediastinal silhouette is normal. The lungs are clear. The pleural spaces are clear. There is no acute osseous injury. Lumbar fusion hardware is partiallyvisualized. Degenerative changes in the spine. IMPRESSION: No acute cardiothoracic abnormality. [facility] Radiology Notify System Classification: Routine. Reported and signed by: Mak Wells MD Blanquita Vera MD IMG DIAGNOSTIC IMAGING ORDERABL ES Final Result * (ABNORMAL) Comprehensive metabolic panel (06/09/2025 12:35 PM EST) Sodium 138 136 - 144 mmol/L 06/09/2025 1:18 PM [facility] Potassium 3.6 3.3 - 5.3 mmol/L 06/09/2025 1:18 PM [facility] Chloride 102 98 - 107 mmol/L 06/09/2025 1:18 PM [facility] CO2 25 20 - 30 mmol/L 06/09/2025 1:18 PM [facility] Anion Gap 11 7 - 17 06/09/2025 1:18 PM [facility] Glucose 95 70 - 100 mg/dL 06/09/2025 1:18 PM [facility] BUN 27(H) 8 - 23 mg/dL 06/09/2025 1:18 PM [facility] Creatinine 1.43(H) 0.40 - 1.30 mg/dL 06/09/2025 1:18 PM [facility] Calcium 9.2 8.8 - 10.2 mg/dL 06/09/2025 1:18 PM [facility] BUN/Creatinine Ratio 18.9 8.0 - 23.0 06/09/2025 1:18 PM [facility] Total Protein 8.5(H) 5.9 - 8.3 g/dL 025 1:18 PM [facility] Albumin 4.1 3.6 - 5.1 g/dL 06/09/2025 1:18 PM [facility] Total Bilirubin 0.5 <=1.2 mg/dL 06/09/20 25 1:18 PM [facility] Alkaline Phosphatase 130(H) 9 - 122 U/L 06/09/2025 1:18 PM [facility] Alanine Aminotransferase (ALT) 30 9 - 59 U/L 06/09/2025 1:18 PM [facility] Comment:Calcium dobesilate c an cause artificially low ALT results at therapeutic concentrations Aspartate Aminotransferase (AST) 37(H) 10 - 35 U/L 06/09/2025 1:18 PM [facility] Globulin 4.4(H) 2.0 - 3.9 g/dL 06/09/2025 1:18 PM [facility] A/G Ratio 0.9(L) 1.0 - 2.2 06/09/2025 1:18 PM [facility] AST/ALT Ratio 1.2 Reference Range Not Established 06/09/2025 1:18 PM [facility] eGFR (Creatinine) 52(L) >=60 mL/min/1.73m2 06/09/2025 1:18 PM [facility] Comment: [facility] utilizes CKD-EPI Creatinine 2020 to report eGFR. Values < 60 mL/min/1.73 m2 may indicate CKD if present for more than three months AND creatinine is at steady state. The eGFR provides a rough estimate of kidney function. For further guidance, please refer to the CKD: Adult [employer] R[employer] Signature pathway. Creatinine Delta 0.21 See Comment 1:18 PM [facility] Comment: Delta creatinine is the difference between the current creatinine and the most recent prior creatinine (if available within the previous 12 months). It is intended to detect significant changes in kidney function for patients whose creatinine is <5 mg/dL. A delta is not calculated for patients whose baseline creatinine is >=5 mg/dL or those who do not have a baseline within the last year. The following deltas will flag as critical (triggering a call from the laboratory): a) Deltas >= +1.5 mg/dL for patients with baseline creatinine <= 1.5 mg/dL. b) Deltas >= +3 mg/dL for patients with baseline creatinine between 1.5 and 5 mg/dL. Blood Venipuncture / Unknown 06/09/2025 12:35 PM [facility] 06/09/2025 12:40 PM EST us Blanquita Vera MD LAB BLOOD ORDERABLES Final Resu lt Performing Organization Address [facility] Co de Phone Number [address] [phone] * (ABNORMAL) Troponin T High Sensitivity, Emergency; 0 hour baseline AND 1 hour with reflex (3 hour) (06/09/2025 12:35 PM EST) [facility] High Sensitivity Troponin T 54(H) See Comment ng/L 06/09/2025 1:14 PM EST [facility] Comment:High Sensitivity Tro ponin T levels should be interpreted in the context of the [facility] Care Signature pathway. Blood Venipuncture / Unknown 06/09/2025 12:35 PM EST 06/09/2025 12:40 PM EST us Blanquita Vera MD LAB BLOOD ORDERABLES Final Resu lt Performing Organization Address [facility] Phone Number [address] [phone] * (ABNORMAL) Pro-BNP (06/09/2025 12:35 PM EST) [facility] NT-proBNP 8,444.0(H ) <125.0 pg/mL 06/09/2025 1:18 PM EST [facility] Comment: For proBNP <300 pg/mL, acute CHF is an unlikely cause of dyspnea. (Ref: Alex MIRAMONTES, et al. AmJCardiol 95:948; 2005) proBNP and BNP values cannot be numerically interconverted; however, the two tests are comparable in distinguishing among the causes of dyspnea. Blood Venipuncture / Unknown 06/09/2025 12:35 PM EST 06/09/2025 12:40 PM EST us Blanquita Vera MD LAB BLOOD ORDERABLES Final Resu lt Performing Organization Address [facility] Co de Phone Number [address] [phone] * (ABNORMAL) CBC auto differential (06/09/2025 12:35 PM [facility]) WBC 4.6 4.0 - 11.0 x1000/ L 06/09/2025 12:45 PM [facility] RBC 4.01 4.00 - 6.00 M/ L 06/09/2025 12:45 PM [facility] Hemoglobin 12.7(L) 13.2 - 17.1 g/dL 06/09/2025 12:45 PM [facility] Hematocrit 37.50(L) 38.50 - 50.00 % 06/09/2025 12:45 PM [facility] MCV 93.5 80.0 - 100.0 fL 06/09/2025 12:45 PM [facility] MCH 31.7 27.0 - 33.0 pg 06/09/2025 12:45 PM [facility] MCHC 33.9 31.0 - 36.0 g/dL 06/09/2025 12:45 PM [facility] RDW-CV 13.1 11.0 - 15.0 % 06/09/2025 12:45 PM [facility] Platelets 172 150 - 420 x1000/ L 06/09/2025 12:45 PM [facility] MPV 11.9 8.0 - 12.0 fL 06/09/2025 12:45 PM [facility] Neutrophils 45.6 39.0 - 72.0 % 06/09/2025 12:45 PM [facility] Lymphocytes 33.0 17.0 - 50.0 % 06/09/2025 12:45 PM [facility] Monocytes 15.1(H) 4.0 - 12.0 % 06/09/2025 12:45 PM [facility] Eosinophils 4.8 0.0 - 5.0 % 06/09/2025 12:45 PM [facility] Basophil 1.3 0.0 - 1.4 % 06/09/2025 12:45 PM [facility] Immature Granulocytes 0.2 0.0 - 1.0 % 06/09/2025 12:45 PM [facility] nRBC 0.0 0.0 - 1.0 % 06/09/2025 12:45 PM [facility] Absolute Lymphocyte Count 1.53 0.60 - 3.70 x 1000/ L 06/09/2025 12:45 PM [facility] Monocyte Absolute Count 0.70 0.00 - 1.00 x 1000/ L 06/09/2025 12:45 PM [facility] Eosinophil Absolute Count 0.22 0.00 - 1.00 x 1000/ L 06/09/2025 12:45 PM [facility] Basophil Absolute Count 0.06 0.00 - 1.00 x 1000/ L 06/09/2025 12:45 PM [facility] Absolute Immature Granulocyte Count 0.01 0.00 - 0.30 x 1000/ L 06/09/2025 12:45 PM [facility] Absolute nRBC 0.00 0.00 - 1.00 x 1000/ L 06/09/2025 12:45 PM [facility] ANC (Abs Neutrophil Count) 2.11 2.00 - 7.60 x 1000/ L 06/09/2025 12:45 PM [facility] Blood Venipuncture / Unknown 06/09/2025 12:35 PM EST 06/09/2025 12:40 PM EST Blanquita Vera MD LAB BLOOD ORDERABLES Final Resu lt [address] [phone] * Cardiac EKG Result Scan (06/09/2025 12:00 AM EST) us Provider Not In System CV CARDIAC REPORT (CVR) F inal Result * (ABNORMAL) CBC and differential (06/01/2025 10:30 AM EST) WBC 4.7 3.8 - 10.8 Thousand/u L [facility] RBC 3.73(L) 4.20 - 5.80 Million/uL [facility] Hemoglobin 12.0(L) 13.2 - 17.1 g/dL [facility] Hematocrit 36.3(L) 38.5 - 50.0 % [facility] MCV 97.3 80.0 - 100.0 fL [facility] MCH 32.2 27.0 - 33.0 pg [facility] MCHC 33.1 32.0 - 36.0 g/dL [facility] Comment: For adults, a slight decrease in the calculated MCHC value (in the range of 30 to 32 g/dL) is most likely not clinically significant; however, it should be interpreted with caution in correlation with other red cell parameters and the patient's clinical condition. RDW 13.0 11.0 - 15.0 % [facility] Platelets 184 140 - 400 Thousand/u L [facility] MPV 12.1 7.5 - 12.5 fL [facility] Neutrophils Absolute 2,463 1,500 - 7,800 cells/uL [facility] Lymphocytes Absolute 1,340 850 - 3,900 cells/uL [facility] Monocytes Absolute 705 200 - 950 cells/uL [facility] Eosinophils Absolute 150 15 - 500 cells/uL [facility] Basophils Absolute 42 0 - 200 cells/uL [facility] Neutrophils 52.4 % [facility] Lymphocytes 28.5 % [facility] Monocytes 15.0 % [facility] Eosinophils 3.2 % [facility] Basophils 0.9 % [facility] Blood 06/01/2025 10:3 0 AM EST 06/01/2025 1:44 PM EST Narrative Resulting Agency Comment Performing Lab: Site ID: [id number] Name: [facility] Address: [address] [place] [phone] Director: Dr Saloni Prather Arabella MELISSA LAB BLOOD ORDERABLES Final Res ult Performing Organization Address City/State/[facility] Co de Phone Number [facility] [address] [place] [address] * URIC ACID (06/01/2025 10:30 AM EST) Uric Acid 6.4 4.0 - 8.0 mg/dL [facility] Comment: Therapeutic target for gout patients: <6.0 mg/dL Blood 06/01/2025 10:3 0 AM EST 06/01/2025 1:44 PM EST Narrative Resulting Agency Comment Performing Lab: Site ID: [id number] Name: [facility] Address: [address] [place] [phone] Director: Dr Saloni Prather us Arabella MELISSA LAB BLOOD ORDERABLES Final Res ult Performing Organization Address City/[facility]/ZIP Co de Phone Number [facility] [address] [place] [address] * (ABNORMAL) Comprehensive metabolic panel (06/01/2025 10:30 AM EST) Glucose 95 65 - 99 mg/dL [facility] Comment: Fasting reference interval BUN 19 7 - 25 mg/dL [facility] Creatinine 1.22 0.70 - 1.28 mg/dL [facility] eGFR (Creatinine) 63 > OR = 60 mL/min/1. 73m2 [facility] BUN/Creatinine Ratio SEE NOTE: 6 - 22 (calc) [facility] Comment: Not Reported: BUN and Creatinine are within reference range. Sodium 137 135 - 146 mmol/L [facility] Potassium 3.5 3.5 - 5.3 mmol/L [facility] Chloride 102 98 - 110 mmol/L [facility] CO2 29 20 - 32 mmol/L [facility] Calcium 9.1 8.6 - 10.3 mg/dL [facility] Protein, Total 8.2(H) 6.1 - 8.1 g/dL [facility] Albumin 4.2 3.6 - 5.1 g/dL [facility] Globulin 4.0(H) 1.9 - 3.7 g/dL (calc) [facility] Albumin/Globulin Ratio 1.1 1.0 - 2.5 (calc) [facility] Bilirubin, Total 0.6 0.2 - 1.2 mg/dL [facility] Alkaline Phosphatase 109 35 - 144 U/L [facility] AST 21 10 - 35 U/L [facility] ALT 18 9 - 46 U/L [facility] Blood 06/01/2025 10:3 0 AM EST 06/01/2025 1:44 PM EST Narrative Resulting Agency Comment Performing Lab: Site ID: [id number] Name: [facility] Address: [address] [place] [phone] Director: Dr Saloni Prather us Arabella MELISSA LAB BLOOD ORDERABLES Final Res ult Performing Organization Address City/[facility]/ZIP Co de Phone Number [facility] [address] [place] [address] from Last 3 Months Insurance MEDICARE [facility] MEDICARE [facility] MED[facility] Care Teams Headlight Assembler Relationship Specialty Start Date End Date Rosetta Kiser MD [address] [place] [address] PCP - General Internal Medicine 06/09/25
--- OUTSIDE RECORDS SUMMARY | 2025-07-14 12:39 | XMS_ITS | Encounter Summary ---
Author Organization [facility] Address [address] [place] [address] Phone Care Team Providers Care Fine Chemicals Operator Name Role Phone Rosetta Kiser MD Primary Care Prov ider Encounter Details Date Type Department Care Team (Latest Contact Info) Description 06/01/2025 Results Follow-Up [facility] [place] [address] [place] [address] Arabella Day PA [address] [facility] [address] [place] [address] CBC and differential, URIC ACID, Comprehensive metabolic panel Social History Tobacco Use Types Packs/Day Years Used Date Smoking Tobacco: Every Day Cigars Alcohol Use Standard Drinks/Week Comments Not Currently 0 (1 standard drink = 0.6 oz pur e alcohol) Sex and Gender Information Value Date Recorded Sex Assigned at Male 06/09/2025 1:53 PM EST Legal Sex Male 7:53 PM EST Gender Identity Choose not to disclose 1:53 PM EST Sexual Orientation Not on file documented as of this encounter Miscellaneous Notes * Result Encounter Note - Arabella Day PA - 06/01/2025 6:05 PM EST Left message to return call- wanted to advise of normal cmp. Wbc wnl. Uric acid in normal range butupper limit and feel symptoms still may be related to gout. documented in this encounter Plan of Treatment Upcoming Encounters Date Type Department Care Team (Late st Contact Info) Description 07/19/2025 8:00 AM EST Appointment [facility] [place] [address] [place] [address] Dougie Ramsey MD [address] [place] [address] 07/21/2025 9:30 AM EST Appointment [facility] [place] [address] [place] [address] Dougie Ramsey MD [address] [place] [address] 08/28/2025 9:00 AM EST Appointment [facility] [place] [address] [place] [address] Dougie Ramsey MD [address] [place] [address] documented as of this encounter Visit Diagnoses Not on filedocumented in this encounter Care Teams Fine Chemicals Operator Relationship Specialty Start Date End Date Rosetta Kiser MD [address] [place] [phone] PCP - General Internal Medicine 06/09/25 documented as of this encounter
--- OUTSIDE RECORDS SUMMARY | 2025-07-14 12:39 | XMS_ITS | Clinical Summary ---
Author Organization [facility] Address [address] [facility] [address] [place] [id number] Care Team Providers Care Cloth Drier Name Role Phone Unknown Primary Care Provider Unavailabl e Social History Tobacco Use Types Packs/Day Years Used Date Smoking Tobacco: Never Assessed Sex and Gender Information Value Date Recorded Sex Assigned at Not on file Legal Sex Male 12:02 PM EST Gender Identity Not on file Sexual Orientation Not on file Plan of Treatment Health Maintenance Due Date Last Done Comments CT Colonography 1952 Colonoscopy 1950 Colorectal Cancer Screening 1950 FIT DNA 1950 FIT 1950 Sigmoidoscopy (10 year) with FIT yearly 1950 Sigmoidoscopy 1950 Hepatitis C Screening 1970 Lipid Screening 1970 Tetanus/Diphtheria/Pertussis Vaccines (1 - Tdap) 11/07 Pneumoccocal Vaccine: 50+ (1 of 1 - PCV) 2002 Zoster vaccine (1 of 2) 2002 Advance Directive 11/08/2007 Covid-19 Vaccine (1 - season) 2025 Influenza (Flu) vaccine (1 o f 1 - Influenza standard series) 03/29/2025 Care Teams Cloth Drier Relationship Specialty Start Date End Date Unknown None PCP - General 07/20/13
--- OUTSIDE RECORDS SUMMARY | 2025-07-14 12:39 | XMS_ITS | Encounter Summary ---
Author Organization [facility] Address [address] [place] [address] Care Team Providers Care Business Administration Professor Name Role Phone Rosetta Kiser MD Primary Care Prov ider Reason for Visit * Reason Onset Date Comments medications 05/27/2025 Lasix 20mg to no w 40 mg Encounter Details Date Type Department Care Team ([facility] Contact Info) Description 05/27/2025 Results Follow-Up Adult Medicine - [address] [phone] Rosetta Kiser MD [address] [place] [phone] Social History Tobacco Use Types Packs/Day Years Used Date Smoking Tobacco: Every Day Cigars Smokeless Tobacco: Never Comments:Only smokes 1 cigar a day Alcohol Use Standard Drinks/Week Comments Not Currently 0 (1 standard drink = 0.6 oz pur e alcohol) Housing Instability Answer Date Recorde d Are you worried that in the next 2 months you may not have stable housing? No 12/10/2024 Food Access & Nutrition Answer Date Rec orded Do you have access to a vari ety of food including fruits and vegetables? Yes 12/10/2024 Access to Healthcare Answer Date Record ed Within the last 3 months, ho w many times did you visit the emergency department for your medical care? 0 12/10/2024 Health Literacy Answer Date Recorded How often do you need to hav e someone help you when you read instructions, pamphlets, or other written material from your doctor or pharmacy? Never 12/10/2024 Caregiver: How often do you need to have someone help you when you read instructions, pamphlets, or other written material from your doctor or pharmacy? Not on file 12/10/2024 Financial Risk Answer Date Recorded How hard is it for you to pa y for the very basics like food, housing, medical care, and air conditioning / heating? Not very hard 12/10/2024 Transportation Answer Date Recorded Has the lack of transportati on kept you from meetings, work, or from getting things needed for daily living? No Has the lack of transportati on kept you from medical appointments or from getting medications? No 12/10/2024 Social Isolation Answer Date Recorded How often do you feel lonely or isolated from ose around you? Never 12/10/2024 Food Risk Answer Date Recorded Within the past 12 months we worried whether our food would run out before we got money to buy more. Never true 12/10/2024 Within the past 12 months th e food we bought just didn't last and we didn't have money to get more. Never true 12/10/2024 Dependent Care Answer Date Recorded Do you need help finding or paying for care for your loved ones. For example, children teacher or elderly care for an older adult? No 12/10/2024 Education Answer Date Recorded Do you think completing more education or training, like finishing a GED, going to college, or learning a trade, would be helpful for you? N/A 12/10/2024 Employment and Income Answer Date Recor ded During the last four weeks, have you been actively looking for work? No 12/10/2024 Living Situation Answer Date Recorded What is your living situation? Unrecognized valu e 12/10/2024 Sex and Gender Information Value Date Recorded Sex Assigned at Not on file Legal Sex Male 2:03 PM EST Gender Identity Not on file Sexual Orientation Not on file Occupation Industry Job Start Date Job End Date PART-TIME Not on file Not on file Not on file documented as of this encounter Ordered Prescriptions Prescription Sig Dispense Quantity Refills Last Filled Start Date End Date furosemide (LASIX) 20 mg tablet Take 1 tablet (20 mg total) by mouth 1 (one) time each day for 10 days. 10 each 05/28/2025 documented in this encounter Progress Notes * Kandy Garciaon - 06/17/2025 4:06 PM EST Patient was seen in the [facility] Emergency Department 06/09/2025 for elevated BP. Patient was originally given by PCP Lasix 20 mg at his last appt. Upon d/c from the ED, the doubled his lasix to now 40 mg 1 tab daily. He will need this updated on his med list and will need a new script sent out before 07/09/2025, is the last one on this script. Patient states he would appreciate a call from the PCP to ensure understanding of this and that there is no mis communication for his meds documented in this encounter Plan of Treatment Not on file documented as of this encounter Visit Diagnoses Not on filedocumented in this encounter Additional Health Concerns Assessment Noted Time PHQ-9 Depression Total Score: 0 12/11/19 8:41 AM EDT documented as of this encounter Care Teams Business Administration Professor Relationship Specialty Start Date End Date Rosetta Kiser MD [address] [place] [id number] PCP - General Internal Medicine 09/02/24 documented as of this encounter
--- OUTSIDE RECORDS SUMMARY | 2025-07-14 12:40 | XMS_ITS ---
[facility] Name [facility] Results Test Name/Text Value Interpretation Date Range Source Troponin T SerPl HS-mCnc -2.0 ng/L 06/09/2025 [facility] NT-proBNP SerPl-mCnc 8444.0 pg/mL Above high normal 06/09/20 25 - 125 [facility] Creat SerPl-mCnc 1.43 mg/dL Above high normal 06/09/2025 0.4 - 1.3 [facility] Bilirub SerPl-mCnc 0.5 mg/dL 06/09/2025 - [facility] ALT SerPl w/o P-5'-P-cCnc 30.0 U/L 06/09/2025 9 - 59 [facility] Albumin SerPl BCG-mCnc 4.1 g/dL 06/09/2025 3.6 - 5.1 [facility] Potassium SerPl-sCnc 3.6 mmol/L 06/09/2025 3.3 - 5 .3 [facility] GFR SerPlBld Creatinine-bsd fmla CKD-EPI 52.0 mL/min/1.73m2 Below low normal 06/09/2025 - [facility] BUN/Creat SerPl 18.9 06/09/2025 8 - 23 [facility] Globulin Plas-mCnc 4.4 g/dL Above high normal 06/09/2025 2 - 3.9 [facility] AST SerPl w P-5'-P-cCnc 37.0 U/L Above high normal 06/09/2025 10 - 35 [facility] AST/ALT SerPl-cRto 1.2 06/09/2025 - [facility] BUN SerPl-mCnc 27.0 mg/dL Above high normal 06/09/2025 8 - 2 3 [facility] Glucose SerPl-mCnc 95.0 mg/dL 06/09/2025 70 - 100 [facility] Albumin/Glob SerPl 0.9 Below low normal 06/09/2025 1 - 2.2 [facility] Prot SerPl-mCnc 8.5 g/dL Above high normal 06/09/2025 5.9 - 8.3 [facility] Anion Gap SerPl Calculated.3Ions-sCnc 11.0 06/09/2025 7 - 17 [facility] T Chloride SerPl-sCnc 102.0 mmol/L 06/09/2025 98 - 1 07 [facility] ALP SerPl-cCnc 130.0 U/L Above high normal 06/09/2025 9 - 12 2 [facility] HCO3 SerPl-sCnc 25.0 mmol/L 06/09/2025 20 - 30 [facility] Calcium SerPl-mCnc 9.2 mg/dL 06/09/2025 8.8 - 10.2 [facility] BKR CREATININE DELTA 0.21 06/09/2025 - [facility] Sodium SerPl-sCnc 138.0 mmol/L 06/09/2025 136 - 14 4 [facility] Troponin T SerPl HS-mCnc 54.0 ng/L Above high normal 06/09/2025 - [facility] Lymphocytes # Bld Auto 1.53 x 1000/uL 06/09/2025 0 .6 - 3.7 [facility] Neutrophils # Bld Auto 2.11 x 1000/uL 06/09/2025 2 - 7.6 [facility] Platelet # Bld Auto 172.0 x1000/uL 06/09/2025 150 - 420 [facility] RBC # Bld Auto 4.01 M/uL 06/09/2025 4 - 6 [facility] WBC # Bld Auto 4.6 x1000/uL 06/09/2025 4 - 11 [facility] Imm Granulocytes # Bld Auto 0.01 x 1000/uL 06/09/2025 0 - 0.3 [facility] Hct VFr Bld Auto 37.5 % Below low normal 06/09/2025 38.5 - 50 [facility] Monocytes NFr Bld Auto 15.1 % Above high normal 5 4 - 12 [facility] Lymphocytes NFr Bld Auto 33.0 % 06/09/2025 17 - 50 [facility] RDW RBC Auto 13.1 % 06/09/2025 11 - 15 [facility] T MCH RBC Qn Auto 31.7 pg 06/09/2025 27 - 33 [facility] Basophils NFr Bld Auto 1.3 % 06/09/2025 0 - 1. 4 [facility] Neutrophils NFr Bld Auto 45.6 % 06/09/2025 39 - 72 [facility] Hgb Bld-mCnc 12.7 g/dL Below low normal 06/09/2025 13.2 - 17 .1 [facility] MCHC RBC Auto-EntMCnc 33.9 g/dL 06/09/2025 31 - 36 [facility] nRBC Bld Auto-Rto 0.0 % 06/09/2025 0 - 1 [facility] Monocytes # Bld Auto 0.7 x 1000/uL 06/09/2025 0 - 1 [facility] Eosinophil NFr Bld Auto 4.8 % 06/09/2025 0 - 5 [facility] Basophils # Bld Auto 0.06 x 1000/uL 06/09/2025 0 - 1 [facility] Eosinophil # Bld Auto 0.22 x 1000/uL 06/09/2025 0 - 1 [facility] PMV Bld Auto 11.9 fL 06/09/2025 8 - 12 [facility] T Imm Granulocytes NFr Bld Auto 0.2 % 06/09/2025 0 - 1 [facility] nRBC # Bld Auto 0.0 x 1000/uL 06/09/2025 0 - 1 [facility] RBC Auto 93.5 fL 06/09/2025 80 - 100 [facility] History of Medication Use Medication Directions Dispensed Refills Start Date End Date Stat us indomethacin (INDOCIN) 50 mg capsule Take 1 capsule (50 mg total) by mouth 2 (two) times daily with breakfast and dinner for 3 days. 06/01/2025 06/05/2025 active furosemide (LASIX) 20 mg tablet Take 1 tablet (20 mg total) by mouth daily. 05/28/2025 active buPROPion XL (WELLBUTRIN XL) 300 mg 24 hr tablet Take 1 tablet (300 mg total) by mouth daily. 05/22/2025 active ferrous sulfate (FEOSOL) 325 mg (65 mg iron) tablet Take 1 tablet (325 mg total) by mouth 2 (two) times daily. 04/19/2025 active escitalopram oxalate (LEXAPRO) 20 mg tablet Take 1 tablet (20 mg total) by mouth daily. 04/03/2025 active carvediloL (COREG) 12.5 mg Immediate Release tablet Take 1 tablet (12.5 mg total) by mouth 2 (two) times daily with breakfast and dinner. 03/23/2025 active atorvastatin (LIPITOR) 10 mg tablet Take 1 tablet (10 mg total) by mouth daily. 01/28/2025 active magnesium oxide 250 mg magnesium tablet TAKE 1 TABLET BY MOUTH ONE TIME EACH DAY IN THE EVENING 06/04/2024 active aspirin 81 mg EC delayed release tablet Take 1 tablet (81 mg total) by mouth daily. active buPROPion XL (WELLBUTRIN XL) 150 mg 24 hr tablet Take 1 tablet (150 mg total) by mouth daily. active OMEGA-3 FATTY ACIDS-FISH OIL ORAL Take by mouth daily. active Problems Problem Status Onset Date Problem Type Date of Resoluti on Source Gouty arthritis of hand active EncounterDiagnosisAct [facility] Localized swelling on right hand active EncounterDiagnosisAct [facility] Encounters Encounter Type Encounter Reason Primary Diagnosis Location Date Ambulatory Nonspecific abnormal electrocardiogram (ECG) (EKG) Nonspecific abnormal electrocardiogram (ECG) (EKG) [facility] 5 Emergency Unspecified essentia l hypertension Unspecified essential hypertension [facility] 5 Ambulatory Localized superficia l swelling, mass, or lump Localized superficial swelling, mass, or lump [facility] 5 Care Team Organization Name Specialty Phone Email Start Date End Da te [facility] IRON SALAS Primary Care 07/13/2025 [facility] 06/09/2025 [facility] 06/09/2025 [facility] 06/02/2025 [facility] 06/01/2025 [facility] 03/17/2025 [facility] IRON SALAS Primary Care 01/04/2023 03/16/2024
--- OUTSIDE RECORDS SUMMARY | 2025-07-14 12:40 | XMS_ITS | Clinical Summary ---
Author Organization [facility] Address [address] [place] [address] Care Team Providers Care Retort Kiln Burner Name Role Phone Rosetta Kiser MD Primary [...] (one) time each day. 01/24/20 18 Active ketoconazole (NIZORAL) 2 % cream Apply topically 2 (two) times a day. 10/09/19 18 Active aspirin 81 mg EC tablet Take 1 tablet (81 mg total) by mouth 1 (one) time each day. Active buPROPion XL (WELLBUTRIN XL) 150 mg 24 hr tablet Take 1 tablet (150 mg total) by mouth 1 (one) time each day. Do not crush, chew, or split. Active atorvastatin (LIPITOR) 10 mg tablet Take 1 tablet (10 mg total) by mouth 1 (one) time each day. 90 tablet 1 01/29/20 25 Active docusate sodium (COLACE) 100 mg capsule Take 1 capsule (100 mg total) by mouth 2 (two) times a day. 180 capsule 1 01/29/20 25 Active cloNIDine (CATAPRES) 0.1 mg tabletIndication s:Essential hypertension Take 1 tablet (0.1 mg total) by mouth if needed (insomnia). 30 tablet 2 03/23/20 25 Active carvediloL (COREG) 12.5 mg tabletIndication s:Essential hypertension,Oth er chest pain Take 1 tablet (12.5 mg total) by mouth 3 (three) times a day. 180 each 3 03/23/20 25 026 Active ferrous sulfate 325 mg (65 mg elemental iron) tablet TAKE 1 TABLET BY MOUTH TWICE A DAY 180 tablet 1 04/19/20 25 Active omeprazole (PriLOSEC) [address] capsule TAKE 1 CAPSULE BY MOUTH EVERY DAY 90 capsule 1 04/19/20 25 Active magnesium oxide 250 mg magnesium tabletIndication s:Abnormal level of blood mineral TAKE 1 TABLET BY MOUTH ONE TIME EACH DAY IN THE EVENING 90 tablet 1 04/22/20 25 Active hydrALAZINE (APRESOLINE) 50 mg tablet Take 1.5 tablets (75 mg total) by mouth 3 (three) times a day. 405 tablet 2 04/26/20 25 Active oxyCODONE (ROXICODONE) 10 mg immediate release tabletIndication s:Arthritis of wrist, unspecified laterality,Chron ic neck pain,Inflammator y arthritis Take 1 tablet (10 mg total) by mouth every 8 (eight) hours if needed for severe pain. Max Daily Amount: 30 mg 84 tablet 05/26/20 25 Active furosemide (LASIX) 20 mg tablet Take 1 tablet (20 mg total) by mouth 1 (one) time each day for 10 days. 10 each 05/28/20 25 Active dilTIAZem CD (CARDIZEM CD) 120 mg 24 hr capsule TAKE 1 CAPSULE (120 MG TOTAL) BY MOUTH AT BEDTIME. AT BEDTIME 90 capsule 06/16/20 25 026 Active dilTIAZem CD (CARDIZEM CD) 120 mg 24 hr capsule Take 1 capsule (120 mg total) by mouth at bedtime. at bedtime 90 each 1 09/07/19 25 025 Discontinued Active Problems Problem Noted Date Diagnosed Date Palpitations 09/30/2024 Overview (02/05/2025): Type of Test: 24 Hour Holter Monitor Date of Test: 09/30/2024 Ordering Provider: Angel Christensen NP Reason for Test: Palpitations Impression: 1: Normal Sinus Rhythm. 2: Rare PACs and one atrial pair. 3: Occasional PVCs. Two couplets and one episode of ventricular bigeminy. 4: No significant pauses, longest R-R was 1.0 second at 5:03 AM. 5: Diary returned with no symptoms noted. Assessment & Plan (02/05/2025 2:37 PM EDT): Has had longstanding elevated heart rates. No significant arrhythmias detected while hospitalized or on Holter. Assessment & Plan (09/30/2024 10:54 AM EST): Has had longstanding elevated heart rates. No significant arrhythmias detected while hospitalized. Will get a 24hr holter monitor to assess rates and for arrhythmimas. Orders: Cardiac holter monitor (<= 48 hours); Future Other chest pain 09/30/2024 Assessment & Plan (02/05/2025 2:37 PM EDT): Work up inpatient suggestive of noncardiac etiology [...] No further cardiac testing regarding this symptom. Orders: Ambulatory referral to Cardiology carvediloL (COREG) 12.5 mg tablet; Take 1 tablet (12.5 mg total) by mouth 2 (two) times a day with meals. Assessment & Plan (09/30/2024 10:54 AM EST): [...] pulmonary artery systolic pressures Assessment & Plan (02/05/2025 2:37 PM EDT): Longstanding history of hypertension with possible genetic component. Responding to antihypertensives although with several side effects and subsequent adjustments. Increase carvedilol to 12.5 mg twice daily due to ongoing spikes. PRN clonidine for spikes as well. Continue with diltiazem and hydralazine. Orders: Ambulatory referral to Cardiology ECG 12 lead carvediloL (COREG) 12.5 mg tablet; Take 1 tablet (12.5 mg total) by mouth 2 (two) times a day with meals. Assessment & Plan (09/30/2024 10:54 AM EST): [...] abuse 07/21/2015 Hypercholesterolemia 07/21/2015 Assessment & Plan (02/05/2025 2:37 PM EDT): May 2024 - LDL 94. Continue with atorvastatin. Orders: ECG 12 lead Assessment & Plan (09/30/2024 10:54 AM EST): May 2024 - LDL . Continue with atorvastatin. Encounters Date Type Department Care Team Description 05/27/2025 Results Follow-Up [address] [phone] Rosetta Higgins MD 05/27/2025 Telephone Adult [address] [phone] Rosetta Higgins MD 05/26/2025 11:40 AM EDT Lab Draw Station [address] [address] Pedal edema; Essential (primary) hypertension; Essential hypertension 05/26/2025 11:00 AM EDT Office Visit [address] [address] Rosetta Higgins MD Essential hypertension (Primary Dx); Arthritis of wrist, unspecified laterality; Chronic neck pain; Inflammatory arthritis; Pedal edema; Essential (primary) hypertension; Moderate episode of recurrent major depressive disorder (CMS/HCC V24, CMS/HCC V28) 05/17/2025 Telephone Adult [address] [phone] Rosetta Higgins MD 04/26/2025 Telephone [facility] [address] [facility] [address] [place] [address] Shawn Stanley MD from Last 3 Months Immunizations Immunization Administration Dates Next Due Influenza Quadravalent, MDCK , 0.5ml, preservative free (Flucelvax) 6mo and older 05/21/2017,06/05/2016 Influenza Quadravalent, MDCK , 0.5ml, with preservative (Flucelvax) 6mo and older 05/15/2019 Influenza trivalent, 0.5mL ( Fluad) 65yo and older 04/21/2024,03/21/2020,05/12/2018,05/14 Influenza, Unspecified 05/21/2017,05/29/2016 Pfizer Covid-19 Bivalent, Or iginal + Ba.1 (Non-[employer] COMIRN[employer]irborne Mobile Bivalent) 04/12/2022 Un[employer] Us SARS-CoV-2 COVID-19, mRNA, LNP-S, preservative free 05/16/2023 Pneumococcal conjugate 13 va lent (Prevnar 13, PCV13) 2mo and older 08/04/2018 Pneumococcal polysaccharide 23 valent (Pneumovax 23) 2yo and older 03/21/2020 Tdap Tetanus diptheria acell ular pertussis (Boostrix; Adacel) 7yo and older 01/17/2016 Zoster Live 01/13/2017 Surgical History Surgery Date Site/Laterality Comments CARPAL TUNNEL RELEASE 2011 PROCEDURE: MD NEUROPLASTY &/TRANSPOS MEDIAN NRV CARPAL TUNNE COLONOSCOPY [...] Tobacco: Every Day Cigars Smokeless Tobacco: Never Tobacco Cessation:Ready to [...] do you feel lonely or isolated from th ose around you? Never 12/10/2024 Food Risk [...] care for your loved ones. For example, children's court magistrate or elderly care for an older adult? [...] Sign Reading Time Taken Comments Blood Pressure 180/100 05/26/2025 11:08 AM EDT Pulse 73 05/26/2025 11:08 AM EDT Temperature 36.8 C (98.2 F) 05/26/2025 11:08 AM EDT Respiratory Rate - - Oxygen Saturation 99% 02/04/2025 10:14 AM EDT Inhaled Oxygen Concentration - - Weight 71.2 kg (157 lb) 05/26/2025 11:08 AM EDT Height 167.6 cm (5' 6 ) 02/04/2025 10:14 AM EDT Body Mass Index 25.34 02/04/2025 10:14 AM EDT Plan of Treatment Health Maintenance Due Date Last Done Comments Drug Screen 1950 Naloxone Order 1950 Opioid Substance Agreement 1952 RSV Immunization Adult Patients (1 - Risk 50-74 years 1-dose series) 2002 Colorectal Cancer Screening: Colonoscopy 10/04/2025 10/05/2015 COVID-19 Vaccine ( season) 2025 04/21/2025, 05/16/2023, 04/28/2023, Additional history exists Falls Risk Assessment 12/10/2025 12/10/2024 Medicare Annual Wellness Visit 12/10/2025 12/10/2024 Pain Assessment 12/10/2025 12/10/2024 Social Influencers of Health Screening 12/10/2025 12/10/2024 Hypertension/CHF/CAD Annual BMP Blood Test 06/09/2026 06/09/2025, 05/26/2025, 06/23/2024, Additional history exists Cholesterol Screening (Lipid Panel) 04/24/2029 04/24/2024, 04/24/2024 DTaP,Tdap,and Td Vaccines (3 - Td or Tdap) 09/15/2034 09/15/2024, 01/17/2016 Pneumococcal Vaccine: 50+ Years Completed 03/14/2023, 03/21/2020, 08/04/2018 Zoster Vaccines Completed 06/14/2023, 01/26, 01/13/2017 Hepatitis C Screening Completed 01/08/2024, 024 Abdominal Aortic Aneurysm (AAA) Screen Completed 03/02/2024, 08/11/2018 Depression Screening Completed 12/10/2024 Influenza Vaccine Completed 04/21/2025, , 04/28/2023, Additional history exists HIB Vaccines Aged Out No longer eligi ble based on patient's age to complete this topic HPV Vaccines Aged Out No longer eligi ble based on patient's age to complete this topic Hepatitis A Vaccines Aged Out No long er eligible based on patient's age to complete this topic Hepatitis B Vaccines Aged Out No long er eligible based on patient's age to complete [...] Procedure Name Priority Date/Time Associated Diagnosis Comments COMPREHENSIVE METABOLIC PANEL Routine 05/26/2025 11:40 AM EDT Essential hypertension B-TYPE NATRIURETIC PEPTIDE Routine 05/26/2025 11:40 AM EDT Pedal edema Essential (primary) hypertension LIPID PANEL Routine 04/24/2024 ABDOMINAL AORTIC ANEURYSM SCRREN Routine 03/02/2024 HEPATITIS C SCREENING Routine 01/08/2024 COLONOSCOPY Routine 10/05/2015 from Last 3 Months or Most Recently Relevant to Health Maintenance Results * (ABNORMAL) B-type natriuretic peptide (05/26/2025 11:40 AM EDT) BNP 647(H) <=100 pcg/mL LAB CHEMISTRY METHOD 05/26/2025 2:46 PM EDT [facility] Blood Venous blood specimen / Unknown Venipuncture / Unknown 05/26/2025 11:40 AM EDT 05/26/2025 11:40 AM EDT us Rosetta Kiser MD LAB BLOOD ORDERABL ES Final Result [facility] [address] [place] [address], * (ABNORMAL) Comprehensive metabolic panel (05/26/2025 11:40 AM EDT) Sodium 139 133 - 145 mmol/L LAB CHEMISTRY METHOD 05/26/2025 5:30 PM [facility] Potassium 3.8 3.5 - 5.5 mmol/L LAB CHEMISTRY METHOD 05/26/2025 5:30 PM [facility] Chloride 106 96 - 110 mmol/L LAB CHEMISTRY METHOD 05/26/2025 5:30 PM [facility] CO2 28 21 - 32 mmol/L LAB CHEMISTRY METHOD 05/26/2025 5:30 PM [facility] Anion Gap 5 3 - 11 LAB CHEMISTRY METHOD 05/26/2025 5:30 PM [facility] Glucose 82 70 - 100 mg/dL LAB CHEMISTRY METHOD 05/26/2025 5:30 PM [facility] BUN 17 5 - 25 mg/dL LAB CHEMISTRY METHOD 05/26/2025 5:30 PM [facility] Creatinine 1.35(H) 0.70 - 1.30 mg/dL LAB CHEMISTRY METHOD 05/26/2025 5:30 PM [facility] eGFR 56(L) >=60 mL/min/1. 73m2 LAB CHEMISTRY METHOD 05/26/2025 5:30 PM [facility] Comment:Calculation based on the Chronic Kidney Disease Epidemiology Collaboration (CKD-EPI) equation refit without adjustment for race. BUN/Creatinine Ratio 12.6 LAB CHEMISTRY METHOD 05/26/2025 5:30 PM [facility] Calcium 9.3 8.5 - 10.5 mg/dL LAB CHEMISTRY METHOD 05/26/2025 5:30 PM [facility] AST (SGOT) 25 10 - 42 unit/L LAB CHEMISTRY METHOD 05/26/2025 5:30 PM EDT [facility] ALT (SGPT) 40 10 - 60 unit/L LAB CHEMISTRY METHOD 05/26/2025 5:30 PM EDT [facility] Alkaline Phosphatase 123(H) 42 - 121 unit/L LAB CHEMISTRY METHOD 05/26/2025 5:30 PM EDT [facility] Total Protein 7.7 6.0 - 8.0 g/dL LAB CHEMISTRY METHOD 05/26/2025 5:30 PM EDT [facility] Albumin 3.6 3.2 - 5.0 g/dL LAB CHEMISTRY METHOD 05/26/2025 5:30 PM EDT [facility] Total Bilirubin 0.4 0.0 - 1.4 mg/dL LAB CHEMISTRY METHOD 05/26/2025 5:30 PM EDT [facility] Blood Venous blood specimen / Unknown Venipuncture / Unknown 05/26/2025 11:40 AM EDT 05/26/2025 11:40 AM EDT Rosetta Kiser MD LAB BLOOD ORDERABL ES Final Result [facility] [address] [place] [address], * (ABNORMAL) Lipid panel (04/24/2024) LDL/HDL Ratio 3 0 - 4 Triglycerides 118 0 - 150 mg/dL Cholesterol 204(A) 0 - 200 mg/dL HDL 70 >=40 mg/dL LDL Cholesterol 111(A) 0 - 100 mg/dL Blood Venous blood specimen / Unknown Historical Provider LAB BLOOD ORDERABLES Ashley l Result * Abdominal Aortic Aneurysm Screen (03/02/2024) Pathologist [facility] Abdominal Aortic Aneurysm (AAA) Screening abstracted Anatomical [...] Recently Relevant to Health Maintenance Insurance MEDICARE [facility] Advance Directives Documents on File Type Date Recorded 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
== END 2025-07-14 11:15 | disposition home or self-care (01) ==
LOC: HO.HPHYS 10:17
PROVIDERS: Visit Provider Physician Assistant
DX: M19.012 Primary osteoarthritis, left shoulder (principal); M18.12 Unilateral primary osteoarthritis of first carpometacarpal joint, left hand
CPT/HCPCS: 20600; 20610

== ENCOUNTER → 2025-07-14 10:17 | Outpatient (BNVA) | payer MEDICARE, SELFPAY | PROVIDERS: Visit Provider Physician Assistant | DX: M19.012 Primary osteoarthritis, left shoulder (principal); M18.12 Unilateral primary osteoarthritis of first carpometacarpal joint, left hand | CPT/HCPCS: 20600; 20610; J2003; J3301 ==